=== PATIENT | female | born 1940 | race Caucasian/White ===

== ENCOUNTER 2023-02-18 10:57 | Outpatient (AMB) | payer MEDICARE, OTHER, SELFPAY ==
[2023-02-18 11:13] VITALS: BP 138/80; PULSE 97; BMI 33.6
--- NOTE | 2023-02-18 11:13 | HO.NEPHOV ---
HPI HPI Comments History of Present Illness Details Argenis is a 82-year-old female whom I had the privilege of seeing in follow-up. She had acute kidney injury from multiple myeloma and had been on dialysis. Her GFR had improved with good urine output and subsequently her dialysis was discontinued. She gets chemotherapy once a week from Dr. Jackson. Her anemia is managed by her rubber insulator . she does not have any new bone pain, back pain, high serum calcium. Her GFR has had been stable. She denies any chest pain, shortness of breath, nausea vomiting, diarrhea, orthostatic symptoms or pedal edema. Her appetite is good and her energy levels are acceptable. She had no new antibiotic intake, hospitalizations or any infections recently. She does not have any dysuria, hematuria, flank pain. She feels well otherwise. She was accompanied by her at the time of this visit. [facility] Medical History (Updated 02/18/23 @ 11:44 by John Diaz MD) H/O malignant neoplasm of breast Multiple myeloma History of hemodialysis Anemia of chronic disease Metabolic acidosis Acute kidney injury Chronic kidney disease, stage 4 (severe) Social History Alcohol intake: never Patient Tobacco Use Status: Never used Tobacco Vital Signs 02/18/23 11:13 Height 5 ft 5 in Weight 202 lb 2 oz BMI 33.6 BP 138/80 Blood Pressure Location Lt brachial Position Sitting Pulse 97 Pulse Source Pulse Oximeter Physical Exam Vital Signs: Last Vital Signs Pulse 97 02/18/23 11:13 BP 138/80 02/18/23 11:13 BMI result Body Mass Index 33.6 Const General: comfortable and no acute distress Orientation/consciousness: patient oriented x3 HEENT Head: Yes normocephalic Mouth: Normal oral and palatal mucosa present Eyes EOM: EOMs intact bilaterally Neck Neck: Yes supple Resp Auscultation: clear to auscultation bilaterally Cardio Jugular venous distension: no JVD Rate: regular rate Heart sounds: Murmur heart sound present GI Palpation (GI): Soft to palpation Auscultation: normal bowel sounds General: Yes no CVA tenderness Back/Spine/Pelvis Back: no CVA tenderness Skin General skin exam: no rashes or lesions noted Neuro General: patient oriented x3 and moves all extremities Extrem General: Yes no pedal edema Assessment & Plan Assessment & Plan (1) Anemia of chronic disease: Code(s): D63.8 - Anemia in other chronic diseases classified elsewhere (2) Metabolic acidosis: Code(s): E87.20 - Acidosis, unspecified (3) Chronic kidney disease, stage 4 (severe): Code(s): N18.4 - Chronic kidney disease, stage 4 (severe) Plan Argenis has chronic kidney disease stage 4. She has multiple myeloma and had been getting chemotherapy. She is closely followed by her oncologist. Her GFR has been stable ever since she had come off hemodialysis. Her urine output is good. Her volume status is acceptable. Her serum potassium is normal and her acidosis is better. She has anemia chronic disease and is managed by her oncologist. I have ordered follow-up blood work. She should maintain good hydration. She should avoid nonsteroidal inflammatory medications as well as Bactrim if possible. I did not make any medication changes at this office visit. All her questions were answered. Time spent documentation, retrieving data and patient encounter 39 minutes. Orders: Orders Electrolytes 02/18/23 D63.8 - Anemia in other chronic diseases classified elsewhere, E87.20 - Acidosis, unspecified, N18.4 - Chronic kidney disease, stage 4 (severe) Blood Urea Nitrogen 02/18/23 D63.8 - Anemia in other chronic diseases classified elsewhere, E87.20 - Acidosis, unspecified, N18.4 - Chronic kidney disease, stage 4 (severe) Calcium 02/18/23 D63.8 - Anemia in other chronic diseases classified elsewhere, E87.20 - Acidosis, unspecified, N18.4 - Chronic kidney disease, stage 4 (severe) Creatinine 02/18/23 D63.8 - Anemia in other chronic diseases classified elsewhere, E87.20 - Acidosis, unspecified, N18.4 - Chronic kidney disease, stage 4 (severe) Coding Level of Care Code Est Pt Level 4 (24815) Diagnoses Anemia of chronic disease D63.8 Metabolic acidosis E87.20 Chronic kidney disease, stage 4 (severe) N18.4
== END 2023-02-18 11:55 | disposition home or self-care (01) ==
PROVIDERS: Visit Provider Internal Medicine Nephrology
DX: N18.4 Chronic kidney disease, stage 4 (severe) (principal); C90.00 Multiple myeloma not having achieved remission; D63.1 Anemia in chronic kidney disease; E87.22 Chronic metabolic acidosis
CPT/HCPCS: 99214

== ENCOUNTER → 2023-02-18 10:57 | Outpatient (BNVA) | payer MEDICARE, OTHER, SELFPAY | PROVIDERS: Visit Provider Internal Medicine Nephrology | DX: N18.4 Chronic kidney disease, stage 4 (severe) (principal); D63.8 Anemia in other chronic diseases classified elsewhere; E87.20 Acidosis, unspecified; C90.00 Multiple myeloma not having achieved remission | CPT/HCPCS: 99212 ==

== ENCOUNTER 2023-04-25 15:56 | Outpatient (AMB) | payer MEDICARE, OTHER, SELFPAY ==
--- NOTE | 2023-04-25 16:14 | HO.NEPHOV_ITS ---
HPI HPI Comments History of Present Illness Details Argenis is a 82-year-old female whom I had the privilege of seeing in follow-up. She had acute kidney injury from multiple myeloma and had been on dialysis. Her GFR had improved with good urine output and subsequently her dialysis was discontinued. She gets chemotherapy once a week from Dr. Jackson. Her anemia is managed by her manager trade marketing . She does not have any new bone pain, back pain, high serum calcium. Her GFR has had been stable. She denies any chest pain, shortness of breath, nausea vomiting, diarrhea, orthostatic symptoms or pedal edema. Her appetite is good and her energy levels are acceptable. She had no new antibiotic intake, hospitalizations or any infections recently. She does not have any dysuria, hematuria, flank pain. She feels well otherwise. She was accompanied by her at the time of this visit [facility] Medical History (Updated 02/18/23 @ 11:44 by John Diaz MD) H/O malignant neoplasm of breast Multiple myeloma History of hemodialysis Anemia of chronic disease Metabolic acidosis Acute kidney injury Chronic kidney disease, stage 4 (severe) Social History Alcohol intake: never Patient Tobacco Use Status: Never used Tobacco Vital Signs 04/25/23 16:22 Height 5 ft 5 in Weight 199 lb 8 oz BMI 33.2 BP 120/78 Blood Pressure Location Lt brachial Position Sitting Pulse 100 Pulse Source Pulse Oximeter Pulse Oximetry (%) 96 Oxygen Delivery Method Room Air Physical Exam Vital Signs: Last Vital Signs Pulse 100 04/25/23 16:22 BP 120/78 04/25/23 16:22 Pulse Ox 96 04/25/23 16:22 Oxygen Delivery Method Room Air 04/25/23 16:22 BMI result Body Mass Index 33.2 Const General: comfortable and no acute distress Orientation/consciousness: patient oriented x3 HEENT Head: Yes normocephalic Mouth: Normal oral and palatal mucosa present Eyes EOM: EOMs intact bilaterally Neck Neck: Yes supple Resp Auscultation: clear to auscultation bilaterally Cardio Jugular venous distension: no JVD Rate: regular rate GI Palpation (GI): Soft to palpation Auscultation: normal bowel sounds General: Yes no CVA tenderness Back/Spine/Pelvis Back: no CVA tenderness Skin General skin exam: no rashes or lesions noted Neuro General: patient oriented x3 and moves all extremities Extrem General: Yes no pedal edema Assessment & Plan Assessment & Plan (1) Chronic kidney disease, stage 4 (severe): Code(s): N18.4 - Chronic kidney disease, stage 4 (severe) (2) Metabolic acidosis: Code(s): E87.20 - Acidosis, unspecified (3) Anemia of chronic disease: Code(s): D63.8 - Anemia in other chronic diseases classified elsewhere Plan Argenis has chronic kidney disease stage 4. She has multiple myeloma and had been getting chemotherapy. She is closely followed by her oncologist. Her GFR has been stable ever since she had come off hemodialysis. Her urine output is good. Her volume status is acceptable. Her serum potassium is normal and her acidosis is better/stable. She is on oral sodium bicarbonate. She has anemia chronic disease and is managed by her oncologist. I have ordered follow-up blood work. She should maintain good hydration. She should avoid nonsteroidal inflammatory medications as well as Bactrim if possible. I did not make any medication changes at this office visit. All her questions were answered. Follow-up given Orders: Orders Electrolytes 04/25/23 D63.8 - Anemia in other chronic diseases classified elsewhere, E87.20 - Acidosis, unspecified, N18.4 - Chronic kidney disease, stage 4 (severe) Blood Urea Nitrogen 04/25/23 D63.8 - Anemia in other chronic diseases classified elsewhere, E87.20 - Acidosis, unspecified, N18.4 - Chronic kidney disease, stage 4 (severe) Calcium 04/25/23 D63.8 - Anemia in other chronic diseases classified elsewhere, E87.20 - Acidosis, unspecified, N18.4 - Chronic kidney disease, stage 4 (severe) Creatinine 04/25/23 D63.8 - Anemia in other chronic diseases classified elsewhere, E87.20 - Acidosis, unspecified, N18.4 - Chronic kidney disease, stage 4 (severe) Parathyroid Hormone Intact 04/25/23 D63.8 - Anemia in other chronic diseases classified elsewhere, E87.20 - Acidosis, unspecified, N18.4 - Chronic kidney disease, stage 4 (severe) Phosphorus 04/25/23 D63.8 - Anemia in other chronic diseases classified elsewhere, E87.20 - Acidosis, unspecified, N18.4 - Chronic kidney disease, stage 4 (severe) Coding Level of Care Code Est Pt Level 4 (51108) Diagnoses Chronic kidney disease, stage 4 (severe) N18.4 Metabolic acidosis E87.20 Anemia of chronic disease D63.8 Results Reviewed Nephrology Results: No Data to Display
[2023-04-25 16:22] VITALS: BP 120/78; PULSE 100; O2SAT 96; BMI 33.2
== END 2023-04-25 16:44 | disposition home or self-care (01) ==
PROVIDERS: Visit Provider Internal Medicine Nephrology
DX: N18.4 Chronic kidney disease, stage 4 (severe) (principal); E87.20 Acidosis, unspecified; D63.8 Anemia in other chronic diseases classified elsewhere
CPT/HCPCS: 99214

== ENCOUNTER → 2023-04-25 15:56 | Outpatient (BNVA) | payer MEDICARE, OTHER, SELFPAY | PROVIDERS: Visit Provider Internal Medicine Nephrology | DX: N18.4 Chronic kidney disease, stage 4 (severe) (principal); E87.20 Acidosis, unspecified; D63.8 Anemia in other chronic diseases classified elsewhere | CPT/HCPCS: 99212 ==

== ENCOUNTER 2023-07-11 13:26 | Outpatient (AMB) | payer MEDICARE, OTHER, SELFPAY ==
[2023-07-11 13:57] VITALS: BP 140/90; PULSE 103; O2SAT 98; BMI 32.9
--- NOTE | 2023-07-11 13:57 | HO.NEPHOV ---
HPI HPI Comments History of Present Illness Details Argenis is a 82-year-old female whom I had the privilege of seeing in follow-up. She had acute kidney injury from multiple myeloma and had been on dialysis. Her GFR had improved with good urine output and subsequently her dialysis was discontinued. She gets chemotherapy once a week from Dr. Jackson. Her anemia is managed by her director of logistics . She does not have any new bone pain, back pain, high serum calcium. Her GFR has improved to 18 mls/mt. She denies any chest pain, shortness of breath, nausea vomiting, diarrhea, orthostatic symptoms or pedal edema. Her appetite is good and her energy levels are acceptable. She had no new antibiotic intake, hospitalizations or any infections recently. She does not have any dysuria, hematuria, flank pain. She feels well otherwise. [facility] Medical History (Updated 02/18/23 @ 11:44 by John Diaz MD) H/O malignant neoplasm of breast Multiple myeloma History of hemodialysis Anemia of chronic disease Metabolic acidosis Acute kidney injury Chronic kidney disease, stage 4 (severe) Social History Alcohol intake: never Patient Tobacco Use Status: Never used Tobacco Vital Signs 07/11/23 13:57 Height 5 ft 5 in Weight 198 lb BMI 32.9 BP 140/90 H Blood Pressure Location Lt brachial Position Sitting Pulse 103 H Pulse Source Pulse Oximeter Pulse Oximetry (%) 98 Oxygen Delivery Method Room Air Physical Exam Vital Signs: Last Vital Signs Pulse 103 H 07/11/23 13:57 BP 140/90 H 07/11/23 13:57 Pulse Ox 98 07/11/23 13:57 Oxygen Delivery Method Room Air 07/11/23 13:57 BMI result Body Mass Index 32.9 Const General: comfortable and no acute distress Orientation/consciousness: patient oriented x3 HEENT Head: Yes normocephalic Mouth: Normal oral and palatal mucosa present Eyes EOM: EOMs intact bilaterally Neck Neck: Yes supple Resp Auscultation: clear to auscultation bilaterally Cardio Jugular venous distension: no JVD Rate: regular rate GI Palpation (GI): Soft to palpation Auscultation: normal bowel sounds General: Yes no CVA tenderness Back/Spine/Pelvis Back: no CVA tenderness Skin General skin exam: no rashes or lesions noted Neuro General: patient oriented x3 and moves all extremities Extrem General: Yes no pedal edema Assessment & Plan Assessment & Plan (1) Chronic kidney disease, stage 4 (severe): Code(s): N18.4 - Chronic kidney disease, stage 4 (severe) (2) Metabolic acidosis: Code(s): E87.20 - Acidosis, unspecified (3) Anemia of chronic disease: Code(s): D63.8 - Anemia in other chronic diseases classified elsewhere Plan Argenis has chronic kidney disease stage 4. She has multiple myeloma and had been getting chemotherapy. She is closely followed by her oncologist. Her GFR has improved ever since she had come off hemodialysis. Her urine output is good. Her volume status is acceptable. Her serum potassium is normal . I increased her NaHCO3 2 tablets AM and 1 tablet PM. She has anemia chronic disease and is managed by her oncologist. I have ordered follow-up blood work. She should maintain good hydration. She should avoid nonsteroidal inflammatory medications as well as Bactrim if possible. I did not make any medication changes at this office visit. All her questions were answered. Follow-up given Orders: Orders Creatinine Today D63.8 - Anemia in other chronic diseases classified elsewhere, E87.20 - Acidosis, unspecified, N18.4 - Chronic kidney disease, stage 4 (severe) Electrolytes Today D63.8 - Anemia in other chronic diseases classified elsewhere, E87.20 - Acidosis, unspecified, N18.4 - Chronic kidney disease, stage 4 (severe) Blood Urea Nitrogen Today D63.8 - Anemia in other chronic diseases classified elsewhere, E87.20 - Acidosis, unspecified, N18.4 - Chronic kidney disease, stage 4 (severe) Coding Level of Care Code Est Pt Level 4 (93781) Diagnoses Chronic kidney disease, stage 4 (severe) N18.4 Metabolic acidosis E87.20 Anemia of chronic disease D63.8 Results Reviewed Nephrology Results: No Data to Display
== END 2023-07-11 14:36 | disposition home or self-care (01) ==
LOC: HO.HKAS 13:26
PROVIDERS: Visit Provider Internal Medicine Nephrology
DX: N18.4 Chronic kidney disease, stage 4 (severe) (principal); E87.20 Acidosis, unspecified; D63.8 Anemia in other chronic diseases classified elsewhere
CPT/HCPCS: 99214

== ENCOUNTER → 2023-07-11 13:26 | Outpatient (BNVA) | payer MEDICARE, OTHER, SELFPAY | PROVIDERS: Visit Provider Internal Medicine Nephrology | DX: N18.4 Chronic kidney disease, stage 4 (severe) (principal) | CPT/HCPCS: 99212 ==

== ENCOUNTER 2023-10-10 11:02 | Outpatient (AMB) | payer MEDICARE, OTHER, SELFPAY ==
--- NOTE | 2023-10-10 11:22 | HO.NEPHOV ---
Vital Signs 10/10/23 11:24 Height 5 ft 5 in Weight 196 lb 8 oz BMI 32.7 BP 130/78 Blood Pressure Location Lt brachial Position Sitting Pulse 97 Pulse Source Pulse Oximeter Pulse Oximetry (%) 96 Oxygen Delivery Method Room Air Intake Visit Reasons: Office visit/ Conf Industrial Painter Required: No Accompanied by: Self / Same As Patient Allergies Penicillins Allergy (Verified 10/10/23 11:27) Unknown HPI Comments Details: Argenis is a 82-year-old female whom I had the privilege of seeing in follow-up. She had acute kidney injury from multiple myeloma and had been on dialysis. Her GFR had improved with good urine output and subsequently her dialysis was discontinued. She gets chemotherapy once a week from Dr. Jackson. Her anemia is managed by her tire trimmer hand . She does not have any new bone pain, back pain, high serum calcium. Her GFR has improved to 18 mls/mt. She denies any chest pain, shortness of breath, nausea vomiting, diarrhea, orthostatic symptoms or pedal edema. Her appetite is good and her energy levels are acceptable. She had no new antibiotic intake, hospitalizations or any infections recently. She does not have any dysuria, hematuria, flank pain. She feels well otherwise. [facility]AC[facility] BY [facility] Medical History (Updated 02/18/23 @ 11:44 by John Diaz MD) H/O malignant neoplasm of breast Multiple myeloma History of hemodialysis Anemia of chronic disease Metabolic acidosis Acute kidney injury Chronic kidney disease, stage 4 (severe) Social History Alcohol intake: never Patient Tobacco Use Status: Never used Tobacco Physical Exam Vital Signs: Last Vital Signs Pulse 97 10/10/23 11:24 BP 130/78 10/10/23 11:24 Pulse Ox 96 10/10/23 11:24 Oxygen Delivery Method Room Air 10/10/23 11:24 BMI result Body Mass Index 32.7 Const General: comfortable and no acute distress Orientation/consciousness: patient oriented x3 HEENT Head: Yes normocephalic Mouth: Normal oral and palatal mucosa present Eyes EOM: EOMs intact bilaterally Neck Neck: Yes supple Resp Auscultation: clear to auscultation bilaterally Cardio Jugular venous distension: no JVD Rate: regular rate GI Palpation (GI): Soft to palpation Auscultation: normal bowel sounds General: Yes no CVA tenderness Back/Spine/Pelvis Back: no CVA tenderness Skin General skin exam: no rashes or lesions noted Neuro General: patient oriented x3 and moves all extremities Extrem General: Yes no pedal edema Results Reviewed Nephrology Results: No Data to Display Assessment & Plan Assessment & Plan (1) Chronic kidney disease, stage 4 (severe): Code(s): N18.4 - Chronic kidney disease, stage 4 (severe) Category: Medical (2) Anemia of chronic disease: Code(s): D63.8 - Anemia in other chronic diseases classified elsewhere Category: Medical (3) Metabolic acidosis: Code(s): E87.20 - Acidosis, unspecified Category: Medical Plan Argenis has chronic kidney disease stage 4. She has multiple myeloma and had been getting chemotherapy. She is closely followed by her oncologist. Her GFR has improved ever since she had come off hemodialysis. Her urine output is good. Her volume status is acceptable. Her serum potassium is normal . I increased her NaHCO3 2 tablets AM and 2 tablet PM. She has anemia chronic disease and is managed by her oncologist. I have ordered follow-up blood work. She should maintain good hydration. She should avoid nonsteroidal inflammatory medications as well as Bactrim if possible. I did not make any medication changes at this office visit. All her questions were answered. Follow-up given Coding Level of Care Code Est Pt Level 4 (12628) Diagnoses Chronic kidney disease, stage 4 (severe) N18.4 Anemia of chronic disease D63.8 Metabolic acidosis E87.20
[2023-10-10 11:24] VITALS: BP 130/78; PULSE 97; O2SAT 96; BMI 32.7
== END 2023-10-10 11:46 | disposition home or self-care (01) ==
PROVIDERS: Visit Provider Internal Medicine Nephrology
DX: N18.4 Chronic kidney disease, stage 4 (severe) (principal); D63.8 Anemia in other chronic diseases classified elsewhere; E87.20 Acidosis, unspecified
CPT/HCPCS: 99214

== ENCOUNTER → 2023-10-10 11:02 | Outpatient (BNVA) | payer MEDICARE, OTHER, SELFPAY | PROVIDERS: Visit Provider Internal Medicine Nephrology | DX: N18.4 Chronic kidney disease, stage 4 (severe) (principal); D63.8 Anemia in other chronic diseases classified elsewhere; E87.20 Acidosis, unspecified | CPT/HCPCS: 99212 ==

== ENCOUNTER 2024-01-14 13:35 | Outpatient (AMB) | payer MEDICARE, OTHER, SELFPAY ==
--- NOTE | 2024-01-14 13:37 | HO.NEPHOV ---
Vital Signs 01/14/24 13:42 Height 5 ft 5 in Weight 191 lb 4 oz BMI 31.8 BP 126/82 Blood Pressure Location Lt brachial Position Sitting Pulse 95 Pulse Source Pulse Oximeter Pulse Oximetry (%) 98 Oxygen Delivery Method Room Air Intake Visit Reasons: 3 mon follow up- Conf Precision Lens Grinder Required: No Accompanied by: Self / Same As Patient Allergies Penicillins Allergy (Verified 01/14/24 13:45) Unknown HPI Comments Details: Argenis is a 82-year-old female whom I had the privilege of seeing in follow-up. She had acute kidney injury from multiple myeloma and had been on dialysis. Her GFR had improved with good urine output and subsequently her dialysis was discontinued. She gets chemotherapy once a week from Dr. Jackson. Her anemia is managed by her gear inspector . She does not have any new bone pain, back pain, high serum calcium. Her GFR has improved to 18 mls/mt. She denies any chest pain, shortness of breath, nausea vomiting, diarrhea, orthostatic symptoms or pedal edema. Her appetite is good and her energy levels are acceptable. She had no new antibiotic intake, hospitalizations or any infections recently. She does not have any dysuria, hematuria, flank pain. She recently had pneumonia and had been on antibiotics. She feels improved otherwise. [facility] Medical History (Updated 02/18/23 @ 11:44 by John Diaz MD) H/O malignant neoplasm of breast Multiple myeloma History of hemodialysis Anemia of chronic disease Metabolic acidosis Acute kidney injury Chronic kidney disease, stage 4 (severe) Social History Alcohol intake: never Patient Tobacco Use Status: Never used Tobacco Review of Systems Const All systems reviewed & are unremarkable except as noted in HPI and below Physical Exam Vital Signs: Last Vital Signs Pulse 95 01/14/24 13:42 BP 126/82 01/14/24 13:42 Pulse Ox 98 01/14/24 13:42 Oxygen Delivery Method Room Air 01/14/24 13:42 BMI result Body Mass Index 31.8 Const General: comfortable and no acute distress Orientation/consciousness: patient oriented x3 HEENT Head: Yes normocephalic Mouth: Normal oral and palatal mucosa present Eyes EOM: EOMs intact bilaterally Neck Neck: Yes supple Resp Auscultation: clear to auscultation bilaterally Cardio Jugular venous distension: no JVD Rate: regular rate GI Palpation (GI): Soft to palpation Auscultation: normal bowel sounds General: Yes no CVA tenderness Back/Spine/Pelvis Back: no CVA tenderness Skin General skin exam: no rashes or lesions noted Neuro General: patient oriented x3 and moves all extremities Extrem General: Yes no pedal edema Results Reviewed Nephrology Results: No Data to Display Assessment & Plan Assessment & Plan (1) Chronic kidney disease, stage 4 (severe): Code(s): N18.4 - Chronic kidney disease, stage 4 (severe) Category: Medical (2) Metabolic acidosis: Code(s): E87.20 - Acidosis, unspecified Category: Medical Plan Argenis has chronic kidney disease stage 4. She has multiple myeloma and had been getting chemotherapy. She is closely followed by her oncologist. Her GFR has improved ever since she had come off hemodialysis. Her urine output is good. Her volume status is acceptable. Her serum potassium is normal . She should continue NaHCO3 650 mg 2 tablets AM and 2 tablet PM. She has anemia chronic disease and is managed by her oncologist. I have ordered follow-up blood work. She should maintain good hydration. She should avoid nonsteroidal inflammatory medications as well as Bactrim if possible. I did not make any medication changes at this office visit. All her questions were answered. Follow-up given Orders: Orders Parathyroid Hormone Intact 3 Months E87.20 - Acidosis, unspecified, N18.4 - Chronic kidney disease, stage 4 (severe) Creatinine 3 Months E87.20 - Acidosis, unspecified, N18.4 - Chronic kidney disease, stage 4 (severe) Blood Urea Nitrogen 3 Months E87.20 - Acidosis, unspecified, N18.4 - Chronic kidney disease, stage 4 (severe) Electrolytes 3 Months E87.20 - Acidosis, unspecified, N18.4 - Chronic kidney disease, stage 4 (severe) Vitamin D 25-OH Total 3 Months E87.20 - Acidosis, unspecified, N18.4 - Chronic kidney disease, stage 4 (severe) Medications: Changed From sodium bicarbonate 1,300 mg PO BID To sodium bicarbonate 1,300 mg (2 x 650 mg) PO BID 90 days 360 tabs 3RF Coding Level of Care Code Est Pt Level 4 (84555) Diagnoses Chronic kidney disease, stage 4 (severe) N18.4 Metabolic acidosis E87.20
[2024-01-14 13:42] VITALS: BP 126/82; PULSE 95; O2SAT 98; BMI 31.8
== END 2024-01-14 14:23 | disposition home or self-care (01) ==
PROVIDERS: Visit Provider Internal Medicine Nephrology
DX: N18.4 Chronic kidney disease, stage 4 (severe) (principal); E87.20 Acidosis, unspecified
CPT/HCPCS: 99214

== ENCOUNTER → 2024-01-14 13:35 | Outpatient (BNVA) | payer MEDICARE, OTHER, SELFPAY | PROVIDERS: Visit Provider Internal Medicine Nephrology | DX: N18.4 Chronic kidney disease, stage 4 (severe) (principal); E87.20 Acidosis, unspecified | CPT/HCPCS: 99212 ==

== ENCOUNTER 2024-04-21 13:17 | Outpatient (AMB) | payer MEDICARE, OTHER, SELFPAY ==
--- NOTE | 2024-04-21 13:31 | HO.NEPHOV ---
Vital Signs 04/21/24 13:34 Height 5 ft 5 in Weight 191 lb 2 oz BMI 31.8 BP 140/80 H Blood Pressure Location Lt brachial Position Sitting Pulse 83 Pulse Source Pulse Oximeter Pulse Oximetry (%) 98 Oxygen Delivery Method Room Air Intake Visit Reasons: 3 mon follow up Senior Mobile Application Developer Required: No Accompanied by: Self / Same As Patient Allergies Penicillins Allergy (Verified 04/21/24 13:34) Unknown HPI Comments Details: Argenis is a 82-year-old female whom I had the privilege of seeing in follow-up. She had acute kidney injury from multiple myeloma and had been on dialysis. Her GFR had improved with good urine output and subsequently her dialysis was discontinued. She gets chemotherapy once a week from Dr. Jackson. 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 She does not have any new bone pain, back pain, high serum calcium. Her GFR has improved to 18 mls/mt. She denies any chest pain, shortness of breath, nausea vomiting, diarrhea, orthostatic symptoms or pedal edema. Her appetite is good and her energy levels are acceptable. She had no new antibiotic intake, hospitalizations or any infections recently. She does not have any dysuria, hematuria, flank pain. She recently had pneumonia and had been on antibiotics. She feels improved otherwise. [facility] Medical History (Updated 02/18/23 @ 11:44 by John Diaz MD) H/O malignant neoplasm of breast Multiple myeloma History of hemodialysis Anemia of chronic disease Metabolic acidosis Acute kidney injury Chronic kidney disease, stage 4 (severe) Social History Alcohol intake: never Patient Tobacco Use Status: Never used Tobacco Review of Systems Const All systems reviewed & are unremarkable except as noted in HPI and below Physical Exam Vital Signs: Last Vital Signs Pulse 83 04/21/24 13:34 BP 140/80 H 04/21/24 13:34 Pulse Ox 98 04/21/24 13:34 Oxygen Delivery Method Room Air 04/21/24 13:34 BMI result Body Mass Index 31.8 Const General: comfortable and no acute distress Orientation/consciousness: patient oriented x3 HEENT Head: Yes normocephalic Mouth: Normal oral and palatal mucosa present Eyes EOM: EOMs intact bilaterally Neck Neck: Yes supple Resp Auscultation: clear to auscultation bilaterally Cardio Jugular venous distension: no JVD Rate: regular rate GI Palpation (GI): Soft to palpation Auscultation: normal bowel sounds General: Yes no CVA tenderness Back/Spine/Pelvis Back: no CVA tenderness Skin General skin exam: no rashes or lesions noted Neuro General: patient oriented x3 and moves all extremities Extrem General: Yes no pedal edema Results Reviewed Nephrology Results: No Data to Display Assessment & Plan Assessment & Plan (1) Chronic kidney disease, stage 4 (severe): Code(s): N18.4 - Chronic kidney disease, stage 4 (severe) Category: Medical (2) Metabolic acidosis: Code(s): E87.20 - Acidosis, unspecified Category: Medical (3) Anemia of chronic disease: Code(s): D63.8 - Anemia in other chronic diseases classified elsewhere Category: Medical Plan Argenis has chronic kidney disease stage 4. She has multiple myeloma and had been getting chemotherapy. She is closely followed by her oncologist. Her GFR has improved ever since she had come off hemodialysis. Her urine output is good. Her volume status is acceptable. Her serum potassium is normal . She should continue NaHCO3 650 mg 2 tablets AM and 2 tablet PM. She has anemia chronic disease and is managed by her oncologist. I have ordered follow-up blood work. She should maintain good hydration. She should avoid nonsteroidal inflammatory medications as well as Bactrim if possible. I did not make any medication changes at this office visit. All her questions were answered. Follow-up given Orders: Orders Blood Urea Nitrogen 3 Months D63.8 - Anemia in other chronic diseases classified elsewhere, E87.20 - Acidosis, unspecified, N18.4 - Chronic kidney disease, stage 4 (severe) Electrolytes 3 Months D63.8 - Anemia in other chronic diseases classified elsewhere, E87.20 - Acidosis, unspecified, N18.4 - Chronic kidney disease, stage 4 (severe) Creatinine 3 Months D63.8 - Anemia in other chronic diseases classified elsewhere, E87.20 - Acidosis, unspecified, N18.4 - Chronic kidney disease, stage 4 (severe) Coding Level of Care Code Est Pt Level 4 (02996) Diagnoses Chronic kidney disease, stage 4 (severe) N18.4 Metabolic acidosis E87.20 Anemia of chronic disease D63.8
[2024-04-21 13:34] VITALS: BP 140/80; PULSE 83; O2SAT 98; BMI 31.8
--- OUTSIDE RECORDS SUMMARY | 2024-04-21 15:44 | XMS_ITS ---
Author Organization [facility] [address] Address [address] [place] [address] Care Team Providers Care Hop Sorter Name Role Phone Shilpa THOMAS, Vikash Primary Care Provider Unavail able Renaldo Bello Unavailable [phone] Allergies Allergen (clinical drug ingredient) Drug/Non Drug Allergy documented on EMR Reaction Allergy Type Onset Date Status Penicillin Unknown Drug Allergy Active REASON FOR VISIT Painful nail(s) aggrevated by shoes causing difficulty standing/walking, Dry skin Medications Medication SIG (Take, Route, Frequency, Duration) Notes Start Date End Date Status Aspirin 81 mg Not-Ta darlene Sodium Bicarbonate A ctive valACYclovir HCl 500 MG 1 tablet Orally Once a day Active Warfarin Sodium 6 MG 1 tablet Orally Active Simvastatin Active Calcium + D 600 mg N ot-Taking Glucosamine Chondr Complex 500 mg Not-Taking amLODIPine Besy-Benazepril HCl 2.5-10 MG as directed Orally Active Centrum Silver Activ e Levothyroxine Sodium 50 MCG 1 tablet on an empty stomach in the morning Orally Once a day Active Famotidine 20 MG 1 tablet at bedtime as needed Orally Once a day for 30 day(s) Active Social History Tobacco Use: Social History Observation Description Date Details (start date - stop date) Never Smoker NA - NA Tobacco Use/Smoking Question Answer Notes Are you a: nonsmoker Alcohol Screen Question Answer Notes Did you have a drink containing alcohol in the p ast year? No Points 0 Interpretation Negative Problems Problem Type SNOMED Code ICD Code Onset Dates Problem Status W/U Status Risk Notes Problem 172494677 Porokeratosis (Q82.8) Active confirmed Vital Signs Height 5 ft 6 in in 01/16/2024 Weight 191 lbs 01/16/2024 BMI 30.82 kg/m2 01/16/2024 Procedures Procedure Date Ordered Date Performed Result Body Sit e 67150-ZRXROKF NAIL, 6 OR MORE 01/16/2024 N/A Encounters Encounter Location Date Provider Diagnosis [facility] [address] 01/16/2024 Renaldo Bello Tinea unguium B35.1 ; Pain in right toe(s) M79.674 ; Pain in left toe(s) M79.675 and Xerosis cutis L85.3 Assessments Encounter Date Diagnosis (ICD Code) Assessment Notes Treatment Notes Treatment Clinical Notes Section Notes 01/16/2024 Tinea unguium (ICD-10 - B35.1) 01/16/2024 Pain in right toe(s) (ICD-10 - M79.674) 01/16/2024 Pain in left toe(s) (ICD-10 - M79.675) 01/16/2024 Xerosis cutis (ICD-10 - L85.3) Application of [place]Soothe skin care lotion to the feet Plan Of Treatment Treatment Notes Assessment Notes Xerosis cutis Application of [place]Soothe skin care lotion to the feet Pending Test Test Name Order Date [id number] NAIL, 6 OR MORE 01/16/2024 Next Appt Details Follow Up: 2 Months, Reason: Provider Name:Renaldo Bello, 06/16/2024 02:30:00 PM, [address] [place] [address], [place], [address], Procedure Notes * Category Sub-Category Detail Notes Debride Nail 6-10 Nail debridement Performance o f this nail treatment by a nonprofessional would put this patients foot and overall health at risk. Therefore, nail debridement was performed extensively to reduce/remove overall nail length, girth, thickness, subungual debris, and necrotic tissue, by manual and/or electrical means through the use of a nail nipper and/or dremel-type salvage grinder, to a more viable healthy nail plate or bed tissue 6-10. Silver nitrate used for any petechial bleeding as necessary. Definitive antifungal treatment options have been reviewed and discussed with the patient. The patient chooses, no pharmaceutical tx - 46564 Keratoma Treatment Parring or Cutting o f Benign Hyperkeratotic Lesion(s) The Benign hyperkeratotic lesion, as described above was pared, and/or cut utilizing a sterile 15 blade, tissue nippers, and/or dremel sub 4th metatarsal head on the right foot Progress Notes * Argenis DOWNS MDOB: [birth year] (83 yo F)Acc No.[id number]:01/16/2024 Progress Note Patient:?Roberta Downsne Carla Provider:?Renaldo Bello D.P.M. :1940???Age:83 Y???Sex:Female D ate:01/16/2024 Address:[address] [place], [place] [id number] Pcp:Vikash Massey MD Subjective: * Chief Complaints: * ???Painful nail(s) aggrevate d by shoes causing difficulty standing/walkingDry skin * HPI: ???Painful Nails:?Pt States Last PCP Visit:?Date:?09/19/2023 ?Nature:?aching , dull.?Location:?1-5 digits B/L.?Duration:?many years.?Aggravated by:?shoegear causing difficulty standing/walking , walking.?Treatments:?Debridement.?Severity/Quality:?Moderate.?Skin problems:?Nature:?itching , dryness , scaling B/L.?Location:?Top , Forefoot , Heel/Rearfoot , B/L.?Duration:?several months.?Onset/Cause:?gradual.?Course:?recurrent.?Aggravated by:?no aggrevating factors.?Treatments:?none.?Severity/Quality:?moderate.? * ROS:?General/Constitutional:?Nausea?denies?.?Vomiting?denies?.?Hunger Thirst?denies?.?Loss appetite?denies?.?Chills?denies.?Fatigue?denies.?Fever?denies.?Night Sweats?denies.?Unexplained weight loss?denies?.?Unexplained weight gain?denies?.?HEENTM:?Dentures?denies, denies.?Dizziness?denies.?Glasses/contacts?denies.?Retinopathy?denies.?Blurred/d ouble vision?denies?.?TMJ?denies?.?Discharge/drainage?denies.?Implants?denies .?S ore throat?denies.?Dental implants?denies.?Hard of hearing ?denies?.?Difficulty chewing/swallowing/speaking?denies.?Nose bleeds?denies?.?Sore mouth?denies?.?Respiratory:?On Oxygen?denies.?Pneumonia/pleurisy?denies?.?Bronchitis?denies.?Emphysema?denies?. ?Coughing?denies.?Cough blood?denies?.?Shortness of breath?denies?.?Wheezing?denies?.?Cardiovascular:?Pacemaker?denies.?MVP?denies?.?WPW?denies.?CHF?denies?.?Heart attack?denies?.?Septal defect?denies?.?Rapid beat?denies.?Chest pain ?denies.?Atrial Fib.?denies.?Murmur/Palpitations?denies.?Gastrointestinal:?Hemorrhoids?denies?.?Stomach/Abdominal pain?denies.?Dark blood stool?denies?.?Irritable bowel ?denies?.?Constipation?denies?.?Diarrhea?denies.?Hematology:?Swelling?denies.?Clots?denies?.?Varicose Veins?denies?.?Bruising?denies.?Bleeding problem?denies?.?Genitourinary:?Blood urine?denies.?Frequent/Painfu/urination/bladder control?denies?.?Kidney stones?denies?.?Infection (UTI)?denies?.?Nephropathy?denies.?sex trans dis (STD)?denies?.?Prostate?denies?.?Musculoskeletal:?Hammertoes?denies,.?Bunions?denies.?Back Pain?denies?.?Muscle Cramps/ Resting?denies.?Muscle cramps / walking?denies, denies.?Generalized aches and pains?denies, denies.?Weakness?denies, denies.?Integ.:?Mary?denies.?Scars?denies.?Corns/calluses?admits?.?Ingrown nails?admits?.?Painful nails?admits.?Open Sores?denies?.?Itching?admits.?Rashes?denies.?Scaly lesions of skin/scalp?admits.?Neurologic:?Difficulty sleeping?denies.?Brain disorder?denies?.?Numbness?denies?.?Balance trouble?denies?.?Confusion?denies?.?Fainting/blackouts?denies?.?Tingling?denies, denies.?Tremors?denies?.? * Medical History:? * Surgical History:?Bone Spurs 1983neck surgery - vertebrae fusion 1985breast surgery - cancer 2009 * Hospitalization/Major Diagno stic Procedure:?multiple myeloma chemotherapy * Family History:?Mother: dece ased, diagnosed with Other malignant neoplasm of unspecified site.?Father: , diagnosed with Family history of arthritis, Unspecified heart disease.?Siblings: cancer.?Spouse: alive.? * Social History:?Tobacco Use:?Tobacco Use/Smoking?Are you a:?nonsmoker ?Tobacco use other than smoking?Are you an other tobacco user? No.?Drugs/Alcohol:?Drugs?Have you used drugs other than those for medical reasons in the past 12 months??No ?Alcohol Screen?Did you have a drink containing alcohol in the past year??No ?Points?0 ?Interpretation?Negative ???Miscellaneous:?Caffeine: yes, 1-2 cups per day. ?no Children. ?Exercise: yes, walking. ?Marital status: . ?Occupation: retired teacher. * Medications:?TakingSodium Bi carbonate valACYclovir HCl 500 MG Tablet 1 tablet Orally Once a dayWarfarin Sodium 6 MG Tablet 1 tablet Orally Simvastatin Famotidine 20 MG Tablet 1 tablet at bedtime as needed Orally Once a dayamLODIPine Besy-Benazepril HCl 2.5-10 MG Capsule as directed Orally Centrum Silver Levothyroxine Sodium 50 MCG Tablet 1 tablet on an empty stomach in the morning Orally Once a dayTaking Sodium Bicarbonate Taking valACYclovir HCl 500 MG Tablet 1 tablet Orally Once a dayTaking Warfarin Sodium 6 MG Tablet 1 tablet Orally Taking Simvastatin Taking Famotidine 20 MG Tablet 1 tablet at bedtime as needed Orally Once a dayTaking amLODIPine Besy-Benazepril HCl 2.5-10 MG Capsule as directed Orally Taking Centrum Silver Taking Levothyroxine Sodium 50 MCG Tablet 1 tablet on an empty stomach in the morning Orally Once a dayNot-Taking/PRNCalcium + D 600 mg Glucosamine Chondr Complex 500 mg Aspirin 81 mg Medication List reviewed and reconciled with the patientNot-Taking/PRN Calcium + D 600 mg Not-Taking/PRN Glucosamine Chondr Complex 500 mg Not-Taking/PRN Aspirin 81 mg Medication List reviewed and reconciled with the patient * Allergies:?Penicillinyes[All ergies Verified] Objective: * Vitals:?Ht: 5 ft 6 in, Wt:19 1, BMI: 30.82, Shoe size:8m, Wt-k.64 kg. * Examination: ???Nails: ?NAILS are:?Elongated, overgrown, dystrophic, lytic, greater than 3mm thick, discolored and friable with crumbly malodorous subungual debris, with pain on palpation on the 1-5 digits B/L.?Dermatologic: ?SKIN FINDINGS:?Skin shows sign(s) of, dryness, scaling, in a stocking fashion, no fissure(s) present, B/L.?POROKERATOSIS:?painful , well encapsulated ,? sub 4th metatarsal?right foot. Painful to direct pressure.? Assessment: * Assessment: 1.?Tinea unguium - B35.1?2.? Pain in right toe(s) - M79.674?3.?Pain in left toe(s) - M79.675?4.?Xerosis cutis - L85.3, Acute problem, Uncomplicated (3)? Plan: * Treatment: 2.?Xerosis cutis? Notes: Application of [place]Soothe skin care lotion to the feet?? * Procedures:?Debride Nail 6-10:?Nail debridement?Performance of this nail treatment by a nonprofessional would put this patients foot and overall health at risk. Therefore, nail debridement was performed extensively to reduce/remove overall nail length, girth, thickness, subungual debris, and necrotic tissue, by manual and/or electrical means through the use of a nail nipper and/or dremel-type salvage grinder, to a more viable healthy nail plate or bed tissue 6-10. Silver nitrate used for any petechial bleeding as necessary. Definitive antifungal treatment options have been reviewed and discussed with the patient. The patient chooses, no pharmaceutical tx - 76512.?Keratoma Treatment:?Parring or Cutting of Benign Hyperkeratotic Lesion(s)?The Benign hyperkeratotic lesion, as described above was pared, and/or cut utilizing a sterile 15 blade, tissue nippers, and/or dremel sub 4th metatarsal head on the right foot.? * Procedure Codes:?28947 DEBRI DE NAIL, 6 OR MORE * Preventive Medicine:? ??Counseling:?Discussion:?-13: Office or other outpatient visit for the evaluation and management of an established patient, which required a medically appropriate history and/or examination and LOW level of DECISION MAKING for: 1 STABLE ACUTE UNCOMPLICATED PROBLEM, 2 OR MORE MINOR PROBLEMS, OR 1 STABLE CHRONIC PROBLEM, THAT POSE(S) A LOW RISK FOR MORBIDITY/MORTALITY. The visit on the day of the encounter encompassed interpreting the data and educating the patient as to the nature of their condition, treatment options available according to their individual PMH, meds, allergies, and overall health/living conditions, as well as any potential risks or complications that may occur from a failure to adhere to, and participate in, the recommended course of therapy. The discussion included a complete verbal, and/or written explanation of the examination results, any x-rays taken, the proposed diagnosis, and outline of the treatment plan. A schedule for future care needs was also explained. The patient verbalized an understanding of the instructions at this time and agreed to be an active participant in their treatment. If the patient should think of any questions or concerns after the visit, I have encouraged the patient to call the office.?Xerosis:?The patient was counseled on the diagnosis, potential etiologies, and treatment options for their skin condition. We discussed the risks and benefits of each option from performing no treatment, to utilizing OTC topical skin creams/ointments, to utilizing prescription topical creams/ointments, to utilizing customized compounded topical medications and use of nocturnal occlusion with any/all previously detailed therapies. We discussed the advantages and disadvantages of each possible treatment and importance for adherence to all the recommended therapies for optimum success and avoid potential complications such as open sore/infection/possible hospitalization. We discussed the potential effectiveness of each topical preparation as well as each ones possible side effects and/or patient medication interactions. Patient questions re: use, dosage, successful outcomes, and application consistency were reviewed and the patient verbalized that all answers were clearly understood. The patient has decided to apply OTC skin creams to their feet save the interspaces while paying special attention to the heels..? * Follow Up:?2 Months * Images: * Sign off status: Completed true * Provider:?Renaldo Bello D.P.M. Date:?06/2023 Generated for Maddie bradford/Oscar/eTransmitting on:?04/21/2024 03:44 PM EST History and Physical Notes * HPI (History of Present Illness) Category Sub-Category Detail Notes Category Not es Painful Nails Aggravated by: shoegear causing difficulty standing/walking , walking Duration: many years Location: 1-5 digits B/L Nature: aching , dull Treatments: Debridement Severity/Quality: Moderate Pt States Last PCP Visit: Date:: 09/19/2023 Skin problems Nature: itching , dryness , scaling B/L Location: Top , Forefoot , Pacheco l/Rearfoot , B/L Duration: several months Onset/Cause: gradual Course: recurrent Aggravated by: no aggrevating facto rs Treatments: none Severity/Quality: moderate Examination Category Sub-Category Detail Notes Category Not es Dermatologic SKIN FINDINGS: Skin shows sign( s) of, dryness, scaling, in a stocking fashion, no fissure(s) present, B/L POROKERATOSIS: painful , well encap sulated , sub 4th metatarsal right foot. Painful to direct pressure Nails NAILS are: Elongated, overg rown, dystrophic, lytic, greater than 3mm thick, discolored and friable with crumbly malodorous subungual debris, with pain on palpation on the 1-5 digits B/L
--- OUTSIDE RECORDS SUMMARY | 2024-04-21 15:45 | XMS_ITS ---
Author Organization [facility] Address [address] [place] [address] Care Team Providers Care Humanities Division Chair Name Role Phone Vikash Massey MD Primary Care Provider Unavail able Renaldo Bello Unavailable [phone] Viky Yoder [phone] Encounters Encounter Location Date Provider Diagnosis [address] [address] 12/30/2023 Viky Yoder Plan Of Treatment Next Appt Details Provider Name:Renaldo Bello, 06/16/2024 02:30:00 PM, [address] [place] [address], [address], Progress Notes * Argenis DOWNS MDOB: [birth year] (83 yo F)Acc No.[id number]:12/30/2023 Progress Note Patient:?Roberta DOWNScory Aguirre Provider:?Viky Yoder DPM :1940???Age:83 Y???Sex:Female D ate:12/30/2023 Address:[address] [place] [address] Pcp:Vikash Massey MD Subjective: * Chief Complaints: * ??? * Medical History:? Objective: * Vitals:? Assessment: Plan: * Treatment: * Images: * The named appointment provid er may or may not be the originator of this progress note, and it is not deemed complete until electronically signed by the appointment provider. Sign off status: Pending * Provider:Lucía Yoder DPM Date:? Generated for Maddie bradford/Oscar/Stephen on:?04/21/2024 03:44 PM EST
--- OUTSIDE RECORDS SUMMARY | 2024-04-21 15:45 | XMS_ITS | Patient Health Record ---
[facility] Address [address] [place] [address] Care Team Providers Care Telegraph Messenger Name Role Phone Shilpa THOMAS, Vikash Primary Care Provider Unavail able Renaldo Bello Unavailable [phone] Viky Yoder Unavailable [phone] Allergies Allergen (clinical drug ingredient) Drug/Non Drug Allergy documented on EMR Reaction Allergy Type Onset Date Status Penicillin Unknown Drug Allergy Active Reason For Referral No Information Medications Medication SIG (Take, Route, Frequency, Duration) Notes Start Date End Date Status amLODIPine Besy-Benazepril HCl 2.5-10 MG as directed Orally Active Famotidine 20 MG 1 tablet at bedtime as needed Orally Once a day for 30 day(s) Active Simvastatin Active Warfarin Sodium 6 MG 1 tablet Orally Active valACYclovir HCl 500 MG 1 tablet Orally Once a day Active Sodium Bicarbonate A ctive Aspirin 81 mg Not-Ta darlene Glucosamine Chondr Complex 500 mg Not-Taking Calcium + D 600 mg N ot-Taking Levothyroxine Sodium 50 MCG 1 tablet on an empty stomach in the morning Orally Once a day Active Centrum Silver Activ e Immunizations Vaccine Route Administration Date Status Comme nts COVID-19 Pfizer BioNTech Vaccine Unknown 01/11/2021 Administered 1st 06/04/20 2nd 06/14/20 Social History Tobacco Use: Social History Observation Description Date Details (start date - stop date) Never Smoker NA - NA Tobacco Control (Standard) Question Answer Notes Tobacco use: Nonsmoker Additional Findings: Tobacco non-user Current no nsmoker AUDIT-C (Standard) Question Answer Notes Did you have a drink containing alcohol in the p ast year? No Points 0 Interpretation Negative Problems Problem Type SNOMED Code ICD Code Onset Dates Problem Status W/U Status Risk Notes Problem Plantar wart (22004683) Plantar wart (B07.0) Active confirmed Problem Localized, primary osteoarthritis of the ankle and/or foot (771841924) Primary osteoarthritis, 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 confirmed Problem Acquired hammer toe of left foot (1809955812642220) Other hammer toe(s) (acquired), left foot (M20.42) Active confirmed Problem 479221783 Porokeratosis (Q82.8) Active confirmed Vital Signs Blood pressure diastolic 78 mm Hg 03/31/2024 Height 5 ft 6 in in 03/31/2024 Blood pressure systolic 116 mm Hg 03/31/2024 Weight 192 lbs 03/31/2024 BMI 30.99 kg/m2 03/31/2024 Procedures Procedure Date Ordered Date Performed Result Body Sit e 45643-EGDAOVY NAIL, 6 OR MORE 01/16/2024 N/A 37521-MTYXGRL NAIL, 6 OR MORE 03/31/2024 N/A Encounters Encounter Location Date Provider Diagnosis [address] [address] 05/09/2023 Viky Perica Tinea unguium B35.1 ; Pain in right toe(s) M79.674 ; Pain in left toe(s) M79.675 ; Right foot pain M79.671 ; Plantar wart B07.0 and Left foot pain M79.[address] [address] 07/18/2023 Viky Perica Tinea unguium B35.1 ; Pain in right toe(s) M79.674 ; Pain in left toe(s) M79.675 ; Right foot pain M79.671 ; Plantar wart B07.0 and Left foot pain M79.[address] [address] 09/23/2023 Viky Perica Tinea unguium B35.1 ; Pain in right toe(s) M79.674 ; Pain in left toe(s) M79.675 ; Right foot pain M79.671 and Plantar wart B07.[address] [address] 01/16/2024 Renaldo Bello Tinea unguium B35.1 ; Pain in right toe(s) M79.674 ; Pain in left toe(s) M79.675 and Xerosis cutis L85.[address] [address] 03/31/2024 Renaldo Bello Tinea unguium B35.1 ; Pain in right toe(s) M79.674 and Pain in left toe(s) M79.[address] [address] 12/30/2023 Viky Yoder Assessments Encounter Date Diagnosis (ICD Code) Assessment Notes Treatment Notes Treatment Clinical Notes Section Notes 05/09/2023 Tinea unguium (ICD-10 - B35.1) 07/18/2023 Tinea unguium (ICD-10 - B35.1) 09/23/2023 Tinea unguium (ICD-10 - B35.1) 01/16/2024 Tinea unguium (ICD-10 - B35.1) 01/16/2024 Pain in right toe(s) (ICD-10 - M79.674) 03/31/2024 Tinea unguium (ICD-10 - B35.1) 03/31/2024 Pain in right toe(s) (ICD-10 - M79.674) 03/31/2024 Pain in left toe(s) (ICD-10 - M79.675) 01/16/2024 Pain in left toe(s) (ICD-10 - M79.675) 09/23/2023 Pain in right toe(s) (ICD-10 - M79.674) 07/18/2023 Pain in right toe(s) (ICD-10 - M79.674) 05/09/2023 Pain in right toe(s) (ICD-10 - M79.674) 05/09/2023 Pain in left toe(s) (ICD-10 - M79.675) 07/18/2023 Pain in left toe(s) (ICD-10 - M79.675) 09/23/2023 Pain in left toe(s) (ICD-10 - M79.675) 01/16/2024 Xerosis cutis (ICD-10 - L85.3) Application of [place]-Soothe skin care lotion to the feet 09/23/2023 Right foot pain (ICD-10 - M79.671) 07/18/2023 Right foot pain (ICD-10 - M79.671) 05/09/2023 Right foot pain (ICD-10 - M79.671) 05/09/2023 Plantar wart (ICD-10 - B07.0) 05/09/2023 Left foot pain (ICD-10 - M79.672) 07/18/2023 Plantar wart (ICD-10 - B07.0) 09/23/2023 Plantar wart (ICD-10 - B07.0) 07/18/2023 Left foot pain (ICD-10 - M79.672) 03/31/2024 Other Plan Of Treatment Pending Test Test Name Order Date X ray : Foot, right 3V 03/24/2013 54258-[id number] NAIL, 6 OR MORE 01/16/2024 49582-[id number] NAIL, 6 OR MORE 03/31/2024 71100, J0702- INJECT or DRAIN, JOINT/BUR SA 09/24/2017 34202, J0702- INJECT or DRAIN, JOINT/BUR SA 10/27/2019 94731, J0702- INJECT or DRAIN, JOINT/BUR SA 04/28/2021 67747, J0702- Neuroma/Injection 03/24/20 13 78998, J0702- Neuroma/Injection 12/25/19 14 Next Appt Details Provider Name:Renaldo Bello, 06/16/2024 02:30:00 PM, [address] [facility], [place], [address], Insurance Providers Payer Name Payer Address Payer Phone Subscriber Number Group Number Insured Name Patient Relationship to Insured Coverage Start Date Coverage End Date Medicare National [employer] [address] [facility] [place] [address] [id number] CollinmarRoberta stormne Self - patient is the insured [facility] [address] [place] [address] [id number] Argenis Nova Self - patient is the insured Medical (General) History Medical History History ICD Code osteoarthritis breast cancer measles mumps chicken pox Lyme disease Back,Hip,and Knee pain Psoriasis/eczema Thyroid disorder Multiple Myloma Pneumonia bronchitis acute Kidney disease Surgical History Surgery Date(Month/Year) Bone Spurs 1982 neck surgery - vertebrae fusion 1984 breast surgery - cancer 2009 Hospitalization History Reason Date(Month/Year) multiple myeloma chemotherapy
== END 2024-04-21 13:58 | disposition home or self-care (01) ==
PROVIDERS: Visit Provider Internal Medicine Nephrology
DX: N18.4 Chronic kidney disease, stage 4 (severe) (principal); E87.20 Acidosis, unspecified; D63.8 Anemia in other chronic diseases classified elsewhere
CPT/HCPCS: 99214

== ENCOUNTER → 2024-04-21 13:17 | Outpatient (BNVA) | payer MEDICARE, OTHER, SELFPAY | PROVIDERS: Visit Provider Internal Medicine Nephrology | DX: N18.4 Chronic kidney disease, stage 4 (severe) (principal); E87.20 Acidosis, unspecified; D63.8 Anemia in other chronic diseases classified elsewhere | CPT/HCPCS: 99212 ==

== ENCOUNTER 2024-07-21 11:44 | Outpatient (AMB) | payer MEDICARE, OTHER, SELFPAY ==
--- NOTE | 2024-07-21 12:08 | HO.NEPHOV_ITS ---
Vital Signs 07/21/24 12:09 Height 5 ft 5 in Weight 186 lb 6 oz BMI 31.0 BP 138/80 Blood Pressure Location Lt brachial Position Sitting Pulse 82 Pulse Source Pulse Oximeter Pulse Oximetry (%) 96 Oxygen Delivery Method Room Air Intake Visit Reasons: Follow Up 3mo-LVM Filter Press Tender Head Required: No Accompanied by: Self / Same As Patient Allergies Penicillins Allergy (Verified 07/21/24 12:09) Unknown HPI Comments Details: Argenis is a 82-year-old female whom I had the privilege of seeing in follow-up. She had acute kidney injury from multiple myeloma and had been on dialysis. Her GFR had improved with good urine output and subsequently her dialysis was discontinued. She gets chemotherapy once a week from Dr. Jackson. Her anemia is managed by her service attendant . She does not have any new bone pain, back pain, high serum calcium. Her GFR has improved to 18 mls/mt. She denies any chest pain, shortness of breath, nausea vomiting, diarrhea, orthostatic symptoms or pedal edema. Her appetite is good and her energy levels are acceptable. She had no new antibiotic intake, hospitalizations or any infections recently. She does not have any dysuria, hematuria, flank pain. She has been having intermittent incontinence. She feels improved otherwise. [facility] Medical History (Updated 02/18/23 @ 11:44 by John Diaz MD) H/O malignant neoplasm of breast Multiple myeloma History of hemodialysis Anemia of chronic disease Metabolic acidosis Acute kidney injury Chronic kidney disease, stage 4 (severe) Social History Alcohol intake: never Patient Tobacco Use Status: Never used Tobacco Review of Systems Const All systems reviewed & are unremarkable except as noted in HPI and below Physical Exam Vital Signs: Last Vital Signs Pulse 82 07/21/24 12:09 BP 138/80 07/21/24 12:09 Pulse Ox 96 07/21/24 12:09 Oxygen Delivery Method Room Air 07/21/24 12:09 BMI result Body Mass Index 31.0 Const General: comfortable and no acute distress Orientation/consciousness: patient oriented x3 HEENT Head: Yes normocephalic Mouth: Normal oral and palatal mucosa present Eyes EOM: EOMs intact bilaterally Neck Neck: Yes supple Resp Auscultation: clear to auscultation bilaterally Cardio Jugular venous distension: no JVD Rate: regular rate GI Palpation (GI): Soft to palpation Auscultation: normal bowel sounds General: Yes no CVA tenderness Back/Spine/Pelvis Back: no CVA tenderness Skin General skin exam: no rashes or lesions noted Neuro General: patient oriented x3 and moves all extremities Extrem General: Yes no pedal edema Results Reviewed Nephrology Results: No Data to Display Assessment & Plan Assessment & Plan (1) Chronic kidney disease, stage 4 (severe): Code(s): N18.4 - Chronic kidney disease, stage 4 (severe) Category: Medical (2) Metabolic acidosis: Code(s): E87.20 - Acidosis, unspecified Category: Medical (3) Anemia of chronic disease: Code(s): D63.8 - Anemia in other chronic diseases classified elsewhere Category: Medical Plan Argenis has chronic kidney disease stage 4. She has multiple myeloma and had been getting chemotherapy. She is closely followed by her oncologist. Her GFR has been stable ever since she had come off hemodialysis. Her urine output is good. Her volume status is acceptable. Her serum potassium is normal . She should continue NaHCO3 650 mg 2 tablets AM and 2 tablet PM. She has anemia chronic disease and is managed by her oncologist. I have ordered follow-up blood work. She should maintain good hydration. She should avoid nonsteroidal inflammatory medications as well as Bactrim if possible. She may need to see a Urologist. I did not make any medication changes at this office visit. All her questions were answered. Follow-up given Coding Level of Care Code Est Pt Level 4 (85169) Diagnoses Chronic kidney disease, stage 4 (severe) N18.4 Metabolic acidosis E87.20 Anemia of chronic disease D63.8
[2024-07-21 12:09] VITALS: BP 138/80; PULSE 82; O2SAT 96; BMI 31.0
--- OUTSIDE RECORDS SUMMARY | 2024-07-21 14:28 | XMS_ITS | Encounter Summary ---
Author Organization [facility] Address [address] [place] [address] Care Team Providers Care Psychology Department Chair Name Role Phone Vikash Massey MD Primary Care Provider [phone] Encounter Details Date Type Department Care Team (Latest Contact Info) Description 01/17/2024 10:45 AM EDT Hospital Encounter [facility] ONLY Multiple myeloma not having achieved remission (CMS/HCC) Social History Tobacco Use Types Packs/Day Years [...] Care Team (Late st Contact Info) Description 08/14/2024 10:30 AM EDT Office Visit [facility] Hematology Oncology [address] [place] [address] Sarbjit-Chika Jackson MD [address] [place] [address] documented as of this encounter Procedures Procedure Name Priority Date/Time Associated Diagnosis Comments ..MISCELLANEOUS REFERENCE LAB TEST 01/17/2024 documented in this encounter Results * Miscellaneous reference lab test (01/17/2024) us Provider Onbase LAB BLOOD ORDERABLES Final Re sult documented in this encounter Visit Diagnoses Diagnosis Multiple myeloma not having achieved remission (CMS/HCC) documented in this encounter Care Teams Psychology Department Chair Relationship Specialty Start Date End Date Vikash Massey MD [address] [place] [address] PCP - General Internal Medicine 06/27/20 documented as of this encounter
--- OUTSIDE RECORDS SUMMARY | 2024-07-21 14:28 | XMS_ITS | Encounter Summary ---
Author Organization [facility] Address [address] [place] [address] Care Team Providers Care Gym Teacher Name Role Phone Vikash Massey MD Primary Care Provider [phone] Encounter Details Date Type Department Care Team (Late st Contact Info) Description 01/17/2024 10:15 AM EDT Hospital Encounter [facility]NC[facility] ONLY Chika Vee MD [address] [place] [address] Social History Tobacco Use Types Packs/Day Years [...] Description 08/14/2024 10:30 AM EDT Office Visit [facility] Hematology Oncology [address] [place] [phone] Chika Vee MD [address] [place] [address] documented as of this encounter Visit Diagnoses Not on filedocumented in this encounter Care Teams Gym Teacher Relationship Specialty Start Date End Date Vikash Massey MD [address] [place] [address] PCP - General Internal Medicine 06/27/20 documented as of this encounter
--- OUTSIDE RECORDS SUMMARY | 2024-07-21 14:28 | XMS_ITS | Encounter Summary ---
Author Organization [facility] Address [address] [place] [address] Care Team Providers Care Medical Support Specialist Name Role Phone Vikash Massey MD Primary Care Provider [phone] Encounter Details Date Type Department Care Team [...] Notes Results - 11/08/2023 11:00 AM EDT Argenis arrives for ongoing treatment with Bortezomib, dex [...] Description 08/14/2024 10:30 AM EDT Office Visit [facility] Hematology Oncology [address] [place] [address] Chika Vee MD [address] [place] [address] documented as of this encounter Procedures Procedure Name Priority Date/Time Associated Diagnosis Comments ..MISCELLANEOUS REFERENCE LAB TEST 11/08/2023 documented in this encounter Results * Miscellaneous reference lab test (11/08/2023) us Provider Onbase LAB BLOOD ORDERABLES Final Re sult documented in this encounter Visit Diagnoses Diagnosis Multiple myeloma not having achieved remission (CMS/HCC) documented in this encounter Care Teams Medical Support Specialist Relationship Specialty Start Date End Date Vikash Massey MD [address] [place] [address] PCP - General Internal Medicine 06/27/20 documented as of this encounter
--- OUTSIDE RECORDS SUMMARY | 2024-07-21 14:28 | XMS_ITS | Encounter Summary ---
Author Organization [facility] [place] [address] Care Team Providers Care Adjunct Teacher Name Role Phone Vikash Massey MD Primary Care Provider [phone] Encounter Details Date Type Department Care Team [...] Description 08/14/2024 10:30 AM EDT Office Visit [facility] Hematology Oncology [address] [place] [address] Johnyonia-Chika Jackson MD [address] [place] [address] documented as of this encounter Visit Diagnoses Not on filedocumented in this encounter Care Teams Adjunct Teacher Relationship Specialty Start Date End Date Vikash Massey MD [address] [place] [address] PCP - General Internal Medicine 06/27/20 documented as of this encounter
--- OUTSIDE RECORDS SUMMARY | 2024-07-21 14:28 | XMS_ITS | Encounter Summary ---
Author Organization [facility] [place] [address] [address] Care [address] Attendant Name Role Phone Vikash Massey MD Primary Care Provider [phone] Encounter Details Date Type Department Care Team [...] 08/14/2024 10:30 AM EDT Office Visit [facility] Hematology Oncology [address] [place] [phone] Sarbjit-Chika Jackson MD [address] [place] [phone] documented as of this encounter Visit Diagnoses Not on filedocumented in this encounter Care Teams Court Attendant Relationship Specialty Start Date End Date Vikash Massey MD [address] [place] [address] PCP - General Internal Medicine 06/27/20 documented as of this encounter
--- OUTSIDE RECORDS SUMMARY | 2024-07-21 14:28 | XMS_ITS | Encounter Summary ---
Author Organization [facility] Address [address] [place] [address] Care Team Providers Care Clinical Laboratory Aide Name Role Phone Vikash Massey MD Primary Care Provider [phone] Encounter Details Date Type Department Care Team [...] Description 08/14/2024 10:30 AM EDT Office Visit [facility] Hematology Oncology [address] [place] [address] Sarbjit-Chika Jackson MD [address] [place] [address] documented as of this encounter Procedures Procedure Name Priority Date/Time Associated Diagnosis Comments ..MISCELLANEOUS REFERENCE LAB TEST 12/06/2023 ..MISCELLANEOUS REFERENCE LAB TEST 12/06/2023 documented in this encounter Results * Miscellaneous reference lab test (12/06/2023) Provider Onbase MD LAB BLOOD ORDERABLES Final Re sult * Miscellaneous reference lab test (12/06/2023) us Provider Onbase MD LAB BLOOD ORDERABLES Final Re sult documented in this encounter Visit Diagnoses Diagnosis Multiple myeloma not having achieved remission (CMS/HCC) documented in this encounter Care Teams Clinical Laboratory Aide Relationship Specialty Start Date End Date Vikash Massey MD [address] [place] [address] PCP - General Internal Medicine 06/27/20 documented as of this encounter
--- OUTSIDE RECORDS SUMMARY | 2024-07-21 14:28 | XMS_ITS | Encounter Summary ---
Author Organization [facility] Address [address] [place] [address] Care Team Providers Care Corn Chip Maker Name Role Phone Vikash Massey MD Primary Care Provider [phone] Encounter Details Date Type Department Care Team [...] Description 08/14/2024 10:30 AM EDT Office Visit [facility] Hematology Oncology [address] [place] [phone] Sarbjit-Chika Jackson MD [address] [place] [phone] documented as of this encounter Procedures Procedure Name Priority Date/Time Associated Diagnosis Comments ..MISCELLANEOUS REFERENCE LAB TEST 11/22/2023 documented in this encounter Results * Miscellaneous reference lab test (11/22/2023) us Provider Onbase LAB BLOOD ORDERABLES Final Re sult documented in this encounter Visit Diagnoses Diagnosis Multiple myeloma not having achieved remission (CMS/HCC) documented in this encounter Care Teams Corn Chip Maker Relationship Specialty Start Date End Date Vikash Massey MD [address] [place] [address] PCP - General Internal Medicine 06/27/20 documented as of this encounter
--- OUTSIDE RECORDS SUMMARY | 2024-07-21 14:28 | XMS_ITS ---
Author Organization [facility] Address [address] [place] [address] Care Team Providers Care Office Machine Servicer Apprentice Name Role Phone Shilpa THOMAS, Vikash Primary Care Provider Unavail able Renaldo Bello Unavailable [phone] Viky Yoder Unavailable [phone] Allergies Allergen (clinical drug ingredient) Drug/Non Drug Allergy documented on EMR Reaction Allergy Type Onset Date Status Penicillin Unknown Drug Allergy Active REASON FOR VISIT Painful nail(s) aggrevated by shoes causing difficulty standing/walking, Wart(s), Skin problem(s) Medications Medication SIG (Take, Route, Frequency, Duration) Notes Start Date End Date Status valACYclovir HCl 500 MG 1 tablet Orally Once a day Active Warfarin Sodium 6 MG 1 tablet Orally Active Simvastatin Active Famotidine 20 MG 1 tablet at bedtime as needed Orally Once a day for 30 day(s) Active amLODIPine Besy-Benazepril HCl 2.5-10 MG as directed Orally Active Sodium Bicarbonate A ctive Glucosamine Chondr Complex 500 mg Not-Taking Aspirin 81 mg Not-Ta darlene Levothyroxine Sodium 50 MCG 1 tablet on an empty stomach in the morning Orally Once a day Active Calcium + D 600 mg N ot-Taking Centrum Silver Activ e Social History Tobacco Use: Social History Observation Description Date Details (start date - stop date) Never Smoker NA - NA Tobacco Control (Standard) Question Answer Notes Tobacco use: Nonsmoker Additional Findings: Tobacco non-user Current no nsmoker AUDIT-C (Standard) Question Answer Notes Did you have a drink contain ing alcohol in the past year? Yes How often did you have a dri nk containing alcohol in the past year? Monthly or less (1 point) How many drinks did you have on a typical day when you were drinking in the past year? 1 or 2 drinks (0 point) How often did you have six o r more drinks on one occasion in the past year? Never (0 point) Points 1 Interpretation Negative Vital Signs Height 5 ft 5 in in 06/15/2024 Weight 182 lbs 06/15/2024 BMI 30.28 kg/m2 06/15/2024 Blood pressure systolic 132 mm Hg 06/16/19 25 Blood pressure diastolic 79 mm Hg 025 Encounters Encounter Location Date Provider Diagnosis [facility] [place] [address] [place] [address] 06/15/2024 Viky Yoder Tinea unguium B35.1 ; Pain in right toe(s) M79.674 ; Pain in left toe(s) M79.675 ; Right foot pain M79.671 ; Plantar wart B07.0 and Xerosis of skin L85.3 Assessments Encounter Date Diagnosis (ICD Code) Assessment Notes Treatment Notes Treatment Clinical Notes Section Notes 06/15/2024 Tinea unguium (ICD-10 - B35.1) 06/15/2024 Pain in right toe(s) (ICD-10 - M79.674) 06/15/2024 Pain in left toe(s) (ICD-10 - M79.675) 06/15/2024 Right foot pain (ICD-10 - M79.671) 06/15/2024 Plantar wart (ICD-10 - B07.0) 06/15/2024 Xerosis of skin (ICD-10 - L85.3) Plan Of Treatment Next Appt Details Follow Up: 2 Months, Reason: Provider Name:Viky wheeler, 08/20/2024 03:00:00 PM, [address] [place], [address], Procedure Notes * Category Sub-Category Detail Notes Wart Treatment Procedure Verrucae were de brided to pin-point bleeding margins with sterile 15 surgical blade, silver nitrate chemocautery applied, recomm. immune-boosting meds such as zinc, recomm. follow up with topical chemosurgical agents, Pt defers any other forms of tx (34137) Debride Nail 6-10 Nail debridement Due to the cl inical pathology outlined in the exam findings, performance of this nail treatment is medically necessary as its management by an unskilled/untrained nonprofessional would put this patients foot and overall health at risk. Therefore, debridement to affected nail(s), as described in exam ( TA, T1, T2, T3, T4, T5, T6, T7, T8, T9, ), was performed exclusively by the physician of record to reduce/remove overall nail length, girth, thickness, subungual debris, and necrotic tissue, by manual and/or electrical means through the use of a nail nipper and/or dremel-type bit grinder, to a more viable healthy nail plate or bed tissue 6-10 nails in total. Silver nitrate was used for any petechial bleeding as necessary. Definitive antifungal treatment options, both pharmaceutical and surgical, have been reviewed and discussed with the patient. The patient solely prefers the use of intermittent/as needed professional debridement services for their nail condition and understands the need for additional periodic treatments to maintain effectiveness in symptomatic relief - 18322 Progress Notes * Argenis DOWNS MDOB: [birth year] (83 yo F)Acc No.[id number]:06/15/2024 Progress Note Patient:?Argenis DOWNS Carla Provider:?Viky Yoder DPM :1940???Age:83 Y???Sex:Female D ate:06/15/2024 Address:[address] [place], [place] [address] Pcp:Vikash Massey MD Subjective: * Chief Complaints: * ???Painful nail(s) aggrevate d by shoes causing difficulty standing/walkingWart(s)Skin problem(s) * HPI: ???Painful Nails:?Pt States Last PCP Visit:?Date:?04/28/2024 ???Skin problems:?Pt States PCP Visit: ?DATE?04/28/2023 ?Nature:?dryness , scaling.?Location:?B/L .?Duration:?several days.?Course:?worse.? * ROS:?General/Constitutional:?Nausea?denies?.?Vomiting?denies?.?Hunger Thirst?denies?.?Loss appetite?denies?.?Chills?denies.?Fatigue?denies.?Fever?denies.?Night Sweats?denies.?Unexplained weight loss?denies?.?Unexplained weight gain?denies?.?HEENTM:?Dentures?denies, denies.?Dizziness?denies.?Glasses/contacts?denies.?Retinopathy?denies.?Blurred/d ouble vision?denies?.?TMJ?denies?.?Discharge/drainage?denies.?Implants?denies .?S ore throat?denies.?Dental implants?denies.?Hard of hearing ?denies?.?Difficulty chewing/swallowing/speaking?denies.?Nose bleeds?denies?.?Sore mouth?denies?.?Respiratory:?On Oxygen?denies.?Pneumonia/pleurisy?denies?.?Bronchitis?denies.?Emphysema?denies?. ?Coughing?denies.?Cough blood?denies?.?Shortness of breath?denies?.?Wheezing?denies?.?Cardiovascular:?Pacemaker?denies.?MVP?denies?.?WPW?denies.?CHF?denies?.?Heart attack?denies?.?Septal defect?denies?.?Rapid beat?denies.?Chest pain ?denies.?Atrial Fib.?denies.?Murmur/Palpitations?denies.?Gastrointestinal:?Hemorrhoids?denies?.?Stomach/Abdominal pain?denies.?Dark blood stool?denies?.?Irritable bowel ?denies?.?Constipation?denies?.?Diarrhea?denies.?Hematology:?Swelling?denies.?Clots?denies?.?Varicose Veins?denies?.?Bruising?denies.?Bleeding problem?denies?.?Genitourinary:?Blood urine?denies.?Frequent/Painfu/urination/bladder control?denies?.?Kidney stones?denies?.?Infection (UTI)?denies?.?Nephropathy?denies.?sex trans dis (STD)?denies?.?Prostate?denies?.?Musculoskeletal:?Hammertoes?denies,.?Bunions?denies.?Back Pain?denies?.?Muscle Cramps/ Resting?denies.?Muscle cramps / walking?denies, denies.?Generalized aches and pains?denies, denies.?Weakness?denies, denies.?Integ.:?Mary?denies.?Scars?denies.?Corns/calluses?admits?.?Ingrown nails?denies.?Painful nails?admits.?Open Sores?denies?.?Itching?admits.?Rashes?denies.?Scaly lesions of skin/scalp?admits.?Neurologic:?Difficulty sleeping?denies.?Brain disorder?denies?.?Numbness?denies?.?Balance trouble?denies?.?Confusion?denies?.?Fainting/blackouts?denies?.?Tingling?admits. ?Tremors?denies?.? * Medical History:? * Surgical History:?Bone Spurs 1983neck surgery - vertebrae fusion 1985breast surgery - cancer 2009 * Hospitalization/Major Diagno stic Procedure:?multiple myeloma chemotherapy * Family History:?Mother: dece ased, diagnosed with Other malignant neoplasm of unspecified site.?Father: , diagnosed with Unspecified heart disease, Family history of arthritis.?Siblings: cancer.?Spouse: alive.? * Social History:?Tobacco Use:?Tobacco use other than smoking?Are you an other tobacco user? No.?Tobacco Control (Standard)?Tobacco use:?Nonsmoker ?Additional Findings: Tobacco non-user?Current nonsmoker ???Drugs/Alcohol:?Drugs?Have you used drugs other than those for medical reasons in the past 12 months??No ???Miscellaneous:?Caffeine: yes, 1-2 cups per day. ?Children: no. ?Exercise: yes, walking. ?Marital status: . ?Occupation: retired teacher. ???Drug/Alcohol:?AUDIT-C (Standard)?Did you have a drink containing alcohol in the past year??Yes ?How often did you have a drink containing alcohol in the past year??Monthly or less (1 point) ?How many drinks did you have on a typical day when you were drinking in the past year??1 or 2 drinks (0 point) ?How often did you have six or more drinks on one occasion in the past year??Never (0 point) ?Points?1 ?Interpretation?Negative * Medications:?TakingSodium Bi carbonate valACYclovir HCl 500 MG Tablet 1 tablet Orally Once a day Warfarin Sodium 6 MG Tablet 1 tablet Orally Simvastatin Famotidine 20 MG Tablet 1 tablet at bedtime as needed Orally Once a day amLODIPine Besy- Benazepril HCl 2.5-10 MG Capsule as directed Orally Centrum Silver Levothyroxine Sodium 50 MCG Tablet 1 tablet on an empty stomach in the morning Orally Once a day Taking Sodium Bicarbonate Taking valACYclovir HCl 500 MG Tablet 1 tablet Orally Once a day Taking Warfarin Sodium 6 MG Tablet 1 tablet Orally Taking Simvastatin Taking Famotidine 20 MG Tablet 1 tablet at bedtime as needed Orally Once a day Taking amLODIPine Besy-Benazepril HCl 2.5-10 MG Capsule as directed Orally Taking Centrum Silver Taking Levothyroxine Sodium 50 MCG Tablet 1 tablet on an empty stomach in the morning Orally Once a day Not-Taking/PRNCalcium + D 600 mg Glucosamine Chondr Complex 500 mg Aspirin 81 mg Medication List reviewed and reconciled with the patientNot-Taking/PRN Calcium + D 600 mg Not-Taking/PRN Glucosamine Chondr Complex 500 mg Not-Taking/PRN Aspirin 81 mg Medication List reviewed and reconciled with the patient * Allergies:?Penicillinyes[All ergies Verified] Objective: * Vitals:?Ht: 5 ft 5 in, Wt: 1 82, BMI: 30.28, Shoe size: 8m, BP: 132/79 mm Hg, Ht- cm: 165.1 cm, Wt-k.55 kg. * Examination: ???Nails: ?NAILS are:?Elongated, overgrown, dystrophic, lytic, greater than 3mm thick, discolored and friable with crumbly malodorous subungual debris, with pain on palpation, TA, T1, T2, T3, T4, T5, T6, T7, T8, T9.?Dermatologic: ?SKIN FINDINGS:?Skin shows sign(s) of, dryness, scaling, in a stocking fashion, no fissure(s) present, B/L.?VERRUCA:?Reveals a Single , multi-loculated , mosaic-patterned, round, raised, flat-topped, petechial bleeding papule(s), with cauliflower appearance and interruption of skin lines, pain to lateral compression, and size estimated at 5mm diameter, plantar Forefoot, RIGHT.?General Examination: ?GENERAL APPEARANCE:?Reveals a pleasant, alert, well nourished, well- developed, well hydrated individual, who demonstrates proper attention to hygiene/body habitus, and is in no acute distress, Pt serves as own historian for office visit today.?ORIENTED:?person, place, and time.?Neurological: ?SENSORY:?Neurological exam reveals intact sensorium, pain sensation normal, vibration sensation intact, pinprick sensation is normal in the lower extremities, Pt denies, anesthesia, burning, paresthesia, tingling, B/L.? Assessment: * Assessment: 1.?Tinea unguium - B35.1???2 .?Pain in right toe(s) - M79.674???3.?Pain in left toe(s) - M79.675???4.?Right foot pain - M79.671???5.?Plantar wart - B07.0 (Primary)???6.?Xerosis of skin - L85.3???Specify :Acute problem, Uncomplicated (3),Rx Management (4)??? Plan: * Treatment: * Procedures:?Debride Nail 6-10:?Nail debridement?Due to the clinical pathology outlined in the exam findings, performance of this nail treatment is medically necessary as its management by an unskilled/untrained nonprofessional would put this patients foot and overall health at risk. Therefore, debridement to affected nail(s), as described in exam ( TA, T1, T2, T3, T4, T5, T6, T7, T8, T9, ), was performed exclusively by the physician of record to reduce/remove overall nail length, girth, thickness, subungual debris, and necrotic tissue, by manual and/or electrical means through the use of a nail nipper and/or dremel-type bit grinder, to a more viable healthy nail plate or bed tissue 6- 10 nails in total. Silver nitrate was used for any petechial bleeding as necessary. Definitive antifungal treatment options, both pharmaceutical and surgical, have been reviewed and discussed with the patient. The patient solely prefers the use of intermittent/as needed professional debridement services for their nail condition and understands the need for additional periodic treatments to maintain effectiveness in symptomatic relief - 10385.?Wart Treatment:?Procedure?Verrucae were debrided to pin-point bleeding margins with sterile 15 surgical blade, silver nitrate chemocautery applied, recomm. immune-boosting meds such as zinc, recomm. follow up with topical chemosurgical agents, Pt defers any other forms of tx (12572).? * Procedure Codes:?32418 DEBRI DE NAIL, 6 OR MORE, Modifiers: XS 97014 Wart Destruction, 1-14, Modifiers: XS * Preventive Medicine:? ??Counseling:?Discussion:?-13: Office or other [...] patient verbalized that all answers were clearly understood.? ??Screening/Special Tests:?Fall Risk?Screening:?No falls in the past year ?FALLS: Screening for Future Fall Risk?Have you had any falls with injury in the past year??No * Follow Up:?2 Months * Images: * Sign off status: Completed true * Provider:?Viky Yoder DPM Date:?06/2024 Generated for Maddie bradford/Oscar/Veritosmkamran on:?07/21/2024 02:28 PM EDT History and Physical Notes * HPI (History of Present Illness) Category Sub-Category Detail Notes Category Not es Painful Nails Pt States Last PCP Visit: Date:: 04/28/2024 Skin problems Nature: dryness , scaling Location: B/L Duration: several days Course: worse Pt States PCP Visit: DATE: 04/28/2023 Examination Category Sub-Category Detail Notes Category Not es Neurological SENSORY: Neurological exa m reveals intact sensorium, pain sensation normal, vibration sensation intact, pinprick sensation is normal in the lower extremities, Pt denies, anesthesia, burning, paresthesia, tingling, B/L Dermatologic SKIN FINDINGS: Skin shows sign( s) of, dryness, scaling, in a stocking fashion, no fissure(s) present, B/L VERRUCA: Reveals a Single , m ulti-loculated , mosaic-patterned, round, raised, flat-topped, petechial bleeding papule(s), with cauliflower appearance and interruption of skin lines, pain to lateral compression, and size estimated at 5mm diameter, plantar Forefoot, RIGHT General Examination GENERAL APPEARANCE: Reveals a pleasant, alert, well nourished, well-developed, well hydrated individual, who demonstrates proper attention to hygiene/body habitus, and is in no acute distress, Pt serves as own historian for office visit today ORIENTED: person, place, and t lulú Nails NAILS are: Elongated, overg rown, dystrophic, lytic, greater than 3mm thick, discolored and friable with crumbly malodorous subungual debris, with pain on palpation, TA, T1, T2, T3, T4, T5, T6, T7, T8, T9
--- OUTSIDE RECORDS SUMMARY | 2024-07-21 14:29 | XMS_ITS | Patient Health Record ---
Author Organization [facility] Address [address] [place] [address] Care Team Providers Care Apron Worker Name Role Phone Shilpa THOMAS, Vikash Primary Care Provider Unavail able Renaldo Bello Unavailable [phone] Viky Yoder Unavailable [phone] Allergies Allergen (clinical drug ingredient) Drug/Non Drug Allergy documented on EMR Reaction Allergy Type Onset Date Status Penicillin Unknown Drug Allergy Active Reason For Referral No Information Medications Medication SIG (Take, Route, Frequency, Duration) Notes Start Date End Date Status Sodium Bicarbonate A ctive valACYclovir HCl 500 MG 1 tablet Orally Once a day Active Glucosamine Chondr Complex 500 mg Not-Taking Aspirin 81 mg Not-Ta darlene Warfarin Sodium 6 MG 1 tablet Orally Active Simvastatin Active Famotidine 20 MG 1 tablet at bedtime as needed Orally Once a day for 30 day(s) Active Levothyroxine Sodium 50 MCG 1 tablet on an empty stomach in the morning Orally Once a day Active Calcium + D 600 mg N ot-Taking amLODIPine Besy-Benazepril HCl 2.5-10 MG as directed Orally Active Centrum Silver Activ e Immunizations Vaccine [...] Never (0 point) Points 1 Interpretation Negative Problems Problem Type SNOMED Code ICD Code Onset Dates Problem Status W/U Status Risk Notes Problem Plantar wart (31084766) Plantar wart (B07.0) Active confirmed Problem Localized, primary osteoarthritis of the ankle and/or foot (255146960) Primary osteoarthritis, 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 confirmed Problem Acquired hammer toe of left foot (7518393966814716) Other hammer toe(s) (acquired), left foot (M20.42) Active confirmed Problem 553931958 Porokeratosis (Q82.8) Active confirmed Vital Signs Blood pressure diastolic 79 mm Hg 06/15/2024 Height 5 ft 5 in in 06/15/2024 Blood pressure systolic 132 mm Hg 06/15/2024 Weight 182 lbs 06/15/2024 BMI 30.28 kg/m2 06/15/2024 Procedures Procedure Date Ordered Date Performed Result Body Sit e 32845-QANVKSK NAIL, 6 OR MORE 01/16/2024 N/A 59716-EBWHNFA NAIL, 6 OR MORE 03/31/2024 N/A Encounters Encounter Location Date Provider Diagnosis [address] [address] 09/23/2023 Viky Yoder Tinea unguium B35.1 ; Pain in right toe(s) M79.674 ; Pain in left toe(s) M79.675 ; Right foot pain M79.671 and Plantar wart B07.[address] [address] 01/16/2024 Renaldo Bello Tinea unguium B35.1 ; Pain in right toe(s) M79.674 ; Pain in left toe(s) M79.675 and Xerosis cutis L85.[address] [address] 03/31/2024 Renaldo Bello Tinea unguium B35.1 ; Pain in right toe(s) M79.674 and Pain in left toe(s) M79.[address] [facility] [address] 06/15/2024 Viky Yoder Tinea unguium B35.1 ; Pain in right toe(s) M79.674 ; Pain in left toe(s) M79.675 ; Right foot pain M79.671 ; Plantar wart B07.0 and Xerosis of skin L85.[address] [address] 12/30/2023 Viky Yoder [facility] [address] 04/27/2024 Renaldo Bello Assessments Encounter Date Diagnosis (ICD Code) Assessment Notes Treatment Notes Treatment Clinical Notes Section Notes 09/23/2023 Tinea unguium (ICD-10 - B35.1) 01/16/2024 Tinea unguium (ICD-10 - B35.1) 01/16/2024 Pain in right toe(s) (ICD-10 - M79.674) 03/31/2024 Tinea unguium (ICD-10 - B35.1) 03/31/2024 Pain in right toe(s) (ICD-10 - M79.674) 06/15/2024 Tinea unguium (ICD-10 - B35.1) 06/15/2024 Pain in right toe(s) (ICD-10 - M79.674) 03/31/2024 Pain in left toe(s) (ICD-10 - M79.675) 01/16/2024 Pain in left toe(s) (ICD-10 - M79.675) 09/23/2023 Pain in right toe(s) (ICD-10 - M79.674) 09/23/2023 Pain in left toe(s) (ICD-10 - M79.675) 06/15/2024 Pain in left toe(s) (ICD-10 - M79.675) 01/16/2024 Xerosis cutis (ICD-10 - L85.3) Application of [place]-Soothe skin care lotion to the feet 06/15/2024 Right foot pain (ICD-10 - M79.671) 09/23/2023 Right foot pain (ICD-10 - M79.671) 09/23/2023 Plantar wart (ICD-10 - B07.0) 06/15/2024 Plantar wart (ICD-10 - B07.0) 06/15/2024 Xerosis of skin (ICD-10 - L85.3) 03/31/2024 Other Plan Of Treatment Pending Test Test Name Order Date X ray : Foot, right 3V 03/24/2013 60213-MIGQRMV NAIL, 6 OR MORE 01/16/2024 35437-NPVHGAC NAIL, 6 OR MORE 03/31/2024 79588, J0702- INJECT or DRAIN, JOINT/BUR SA 09/24/2017 52777, J0702- INJECT or DRAIN, JOINT/BUR SA 10/27/2019 86138, J0702- INJECT or DRAIN, JOINT/BUR SA 04/28/2021 67081, J0702- Neuroma/Injection 03/24/20 13 72796, J0702- Neuroma/Injection 12/25/19 14 Next Appt Details Provider Name:Viky wheeler, 08/20/2024 03:00:00 PM, [address] [place], [address], Insurance Providers Payer Name Payer Address Payer Phone Subscriber Number Group Number Insured Name Patient Relationship to Insured Coverage Start Date Coverage End Date Medicare [employer] [address] [facility] [place] [address] [id number] Argenis Nova Self - patient is the insured [facility] [address] [place] [address] [phone] [id number] Argenis Nova Self - patient is [...]
--- OUTSIDE RECORDS SUMMARY | 2024-07-21 14:29 | XMS_ITS ---
Author Organization [facility] Address [address] [place] [address] Care Team Providers Care Enterprise Engineer Name Role Phone Vikash Massey MD Primary Care Provider Unavail able Renaldo Bello Unavailable [phone] Encounters Encounter Location Date Provider Diagnosis [address] [address] 06/16/2024 Renaldo Bello Plan Of Treatment Next Appt Details Provider Name:Viky wheeler, 08/20/2024 03:00:00 PM, [address] [place] [address], [address], Progress Notes * Argenis DOWNS MDOB: [birth year] (83 yo F)Acc No.[id number]:06/16/2024 Progress Note Patient:?Argenis DOWNS Provider:?Renaldo Bello D.P.M. :1940???Age:83 Y???Sex:Female D ate:06/16/2024 Address:[address] [place] [address] Pcp:Vikash Massey MD Subjective: * Chief Complaints: * ??? * Medical History:? Objective: * Vitals:? Assessment: Plan: * Treatment: * Images: * The named appointment provid er may or may not be the originator of this progress note, and it is not deemed complete until electronically signed by the appointment provider. Sign off status: Pending * Provider:?Renaldo Bello D.P.M. Date:?07/2024 Generated for Maddie bradford/Oscar/Stephen on:?07/21/2024 02:29 PM EDT
--- OUTSIDE RECORDS SUMMARY | 2024-07-21 14:30 | XMS_ITS ---
Author Organization [facility] Address [address] [place] [address] Care Team Providers Care Knitting Machine Fixer Head Name Role Phone Shilpa THOMAS, Vikash Primary Care Provider Unavail able Renaldo Bello Unavailable [phone] REASON FOR VISIT rs 06/16/24 appt Encounters Encounter Location Date Provider Diagnosis [facility] [address] [address] 04/27/2024 Renaldo Bello Plan Of Treatment Next Appt Details Provider Name:Viky wheeler, 08/20/2024 03:00:00 PM, [address] [place] [address], [phone], Progress Notes * Argenis DOWNS MDOB: [birth year] (83 yo F)Acc No.[id number]:04/27/2024 Patient:?Argenis DOWNS :1940???Age:83 Y???Sex:Female Address:[address] [place] [address] * true * Date:? Generated for Printi sanchez/Oscar/eTransmitting on:?07/21/2024 02:29 PM EDT
--- OUTSIDE RECORDS SUMMARY | 2024-07-21 14:31 | XMS_ITS | Encounter Summary ---
Author Organization [facility] Address [address] [place] [address] Care Team Providers Care Freight Shipping Agent Name Role Phone Vikash Massey MD Primary Care Provider [phone] Reason for Visit * Episode Based Medications (Routine) - Authorized Specialty Diagnoses / Procedures Referred By Contac t Referred To Contact Diagnoses Multiple myeloma not having achieved remission (CMS/HCC) Chika Vee MD [address] [place] [address] Phone: tel: fax: [address] [address] Phone: tel: fax: Referral ID Status Reason Start Date Expiration Date V isits Requested Visits Authorized [id number] Authorized 01/21/2024 01/20/2025 1 77 Encounter Details Date Type Department Care Team (Latest Contact Info) Description 07/17/2024 10:41 AM EDT - 07/17/2024 11:59 PM EDT Hospital Encounter [address] [address] Chika Vee MD [address] [place] [address] Multiple myeloma not having achieved remission (CMS/HCC) (Primary Dx) Discharge Disposition: Home or Self Care Social History Tobacco Use Types Packs/Day Years [...] Sign Reading Time Taken Comments Blood Pressure 124/58 07/17/2024 10:57 AM EDT Pulse 87 07/17/2024 10:57 AM EDT Temperature 36.3 ??C (97.3 ??F) 07/17/2024 1 0:57 AM EDT Respiratory Rate 18 07/17/2024 10:5 7 AM EDT Oxygen Saturation 100% 07/17/2024 10: 57 AM EDT Inhaled Oxygen Concentration - - Weight 84.7 kg (186 lb 11.7 oz) 025 10:57 AM EDT Height - - Body Mass Index 31.56 01/17/2024 10:27 AM EDT documented in this encounter Medications at Time of Discharge cholecalciferol (VITAMIN D-3) 25 mcg (1,000 unit) capsule Take by mouth. dexAMETHasone (DECADRON) 4 mg tabletIndications:mu ltiple myeloma Take 2 tablets (8 mg total) by mouth. Once a month on week off of treatment 11/22/2023 famotidine (PEPCID) 20 mg tablet TAKE 1 TABLET BY MOUTH TWICE A DAY 180 tablet 07/02/2024 levothyroxine (SYNTHROID, LEVOTHROID) 50 mcg tablet TAKE 1 TAB DAILY & TAKE EXTRA PILL ON Saturday07/25/2021 ondansetron ODT (ZOFRAN-ODT) 4 mg disintegrating tablet Take 1 tablet (4 mg total) by mouth every 8 (eight) hours if needed for nausea or vomiting. 20 tablet 02/26/2024 simvastatin (ZOCOR) 10 mg tablet Take 2 tablets (20 mg total) by mouth. 09/06/2021 sodium bicarbonate 650 mg tablet Take 1 tablet (650 mg total) by mouth. 12/26/2022 valACYclovir (VALTREX) 500 mg tablet TAKE 1 TABLET (500 MG TOTAL) BY MOUTH DAILY. 90 tablet 1 04/20/2024 warfarin (COUMADIN) 5 mg tablet 6 mg. 10/03/2021 documented as of this encounter Discharge Disposition Disposition Code Departure Means Destination Home or Self Care documented in this encounter Progress Notes * Gissell Leos RN - 07/17/2024 11:00 AM EDT 1045 Argenis arrives ambulatory for ongoing treatment with velade. Today is day 8 of her cycle. She denies any changes, no reports of neuropathy. She does report painful knees and is due for arthritic injections next week. Labs are reviewed and within range for treatment. Snacks provided, premeds administered. Call milian in reach. 1200 velcade administered into right side of abdomen without incident. 1215 ate lunch and tolerated well 1230 discharged to home, next appointment provided. documented in this encounter Plan of Treatment Upcoming Encounters Date Type Department Care Team (Late st Contact Info) Description 08/14/2024 10:30 AM EDT Office Visit [facility] Hematology Oncology [address] [place] [phone] Chika Vee MD [address] [place] [address] documented as of this encounter Visit Diagnoses Diagnosis Multiple myeloma not having achieved remission (CMS/HCC)- Primary documented in this encounter Administered Medications Inactive Administered Medications - up to 3 most recent administrations Medication Order MAR Action Action Date Dose Rate Site bortezomib (VELCADE) chemo injection 2.475 mg 2.475 mg (rounded from 2.483 mg = 1.3 mg/m2 ? 1.91 m2), subcutaneous, Once, On Sat07/17/24 at 1115, For 1 dose, FOR SUBCUTANEOUS INJECTION. Bortezomib is an irritant. HAZARDOUS Drug Precautions - High Risk (Category C/NIOSH Group 1) Antineoplastic: - Double pair of ASTM standard D6978 certified chemotherapy gloves - Chemotherapy gown - Closed-System Transfer Device (CSTD) recommended - Eye protection (goggles or face shield) required only with a potential for facial contact (i.e. concern for spitting or vomiting of the dose during or after administration)Indication s:Multiple myeloma not having achieved remission (CMS/HCC) Given 07/17/2024 12:01 PM EDT 2.475 mg Right Lower Abdomen dexAMETHasone (DECADRON) tablet 8 mg 8 mg, oral, Once, On Sat07/17/24 at 1115, For 1 dose, Administer 30 minutes prior to chemotherapy.Indications: Multiple myeloma not having achieved remission (CMS/HCC) Given 07/17/2024 11:23 AM EDT 8 mg ondansetron ODT (ZOFRAN-ODT) disintegrating tablet 16 mg 16 mg, oral, Once, On Sat07/17/24 at 1115, For 1 doseIndications:Multiple myeloma not having achieved remission (CMS/HCC) Given 07/17/2024 11:23 AM EDT 16 mg documented in this encounter Care Teams Freight Shipping Agent Relationship Specialty Start Date End Date Vikash Massey MD [address] [place] [address] PCP - General Internal Medicine 06/27/20 documented as of this encounter
--- OUTSIDE RECORDS SUMMARY | 2024-07-21 14:31 | XMS_ITS | Encounter Summary ---
Author Organization [facility] Address [address] [place] [address] Care Team Providers Care Ui Engineer Name Role Phone Vikash Massey MD Primary Care Provider [phone] Encounter Details Date Type Department Care Team Description 10/06/2021 Social Work [facility] Oncology Services [address] [place] [address] Arturo Schaeffer [facility] Social History Tobacco Use Types Packs/Day Years Used Date Smoking Tobacco: Never Smokeless Tobacco: Never Alcohol Use Standard Drinks/Week Comments Yes 0 (1 standard drink = 0.6 oz pur e alcohol) socially Sex and Gender Information Value Date Recorded Sex Assigned at Female 10/02/2021 1:39 PM EDT Gender Identity Not on file Sexual Orientation Not on file Job Start Date Occupation Industry Not on file Not on file Not on file COVID-19 Exposure Response Date Recorded In the last 10 days, have yo u been in contact with someone who was confirmed or suspected to have Coronavirus/COVID-19? No / Unsure 10/06/2021 11:04 AM EDT documented as of this encounter Plan of Treatment Not on file documented as of this encounter Visit Diagnoses Not on filedocumented in this encounter Care Teams Ui Engineer Relationship Specialty Start Date End Date Vikash Massey MD [address] [address] PCP - General Internal Medicine 10/05/21 documented as of this encounter
--- OUTSIDE RECORDS SUMMARY | 2024-07-21 14:32 | XMS_ITS ---
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 PO DREW- [place] - OP CycloPHOSphamide (po) + OP Bortezomib + OP Dexamethasone + OP sc DREW* Plan Start Date:10/12/2021 Plan Provider:Chika Wyatt MD Linked Problems Multiple myeloma not having achieved remission (HCC) Treatment Medications Current Day (Day 1 , Cycle 31 - Planned for 02/14/2024) Next Day (Day 8, Cycle 31 - Planned for 02/21/2024) acetaminophen (TYLENOL)acyclovir (ZOVIRAX)albuterol (PROVENTIL)bortezomib (VELCADE)cyclophosphamide (CYTOXAN)daratumumab-hyalur onidase-fihjdexamethasone (DECADRON)dexamethasone (DECADRON) 40 mg in 50 mL sodium chloride (NS) 0.9 % IVPB (DECADRON)diphenhydrAMINE (BENADRYL)EPINEPHrineEPINEP Hrine (Anaphylaxis) (ADRENALIN)famotidine (PF) (PEPCID)hydrocortisone (SOLU-CORTEF) IVHydrocortisone Sod Suc (PF) (Solu-CORTEF)meperidine (DEMEROL) 25 MG/MLondansetron (ZOFRAN)ondansetron (ZOFRAN-ODT)ondansetron (ZOFRAN-ODT) 4 MGprochlorperazine (COMPAZINE)Saline Flush 0.9 %sodium chloride (NS) 0.9 %sodium chloride 0.9% bolus (NS) acetaminophen (TYLENOL) tablet 650 mgalbuterol (PROVENTIL) nebulizer solution 2.5 mgbortezomib (VELCADE) subcutaneous injection 2.6 mgdaratumumab-hyaluronidas e-fihj subcutaneous injection 1,800 mgdexamethasone (DECADRON) tablet 8 mgdiphenhydrAMINE (BENADRYL) capsule 25 mgdiphenhydrAMINE (BENADRYL) injection 50 mgEPINEPHrine (Anaphylaxis) (ADRENALIN) 1 mg/ml (1:1000) inj amp/vial 0.3 mgfamotidine (PEPCID) 20 mg in water for injection, sterile 5 mL Injectionhydrocortisone sodium succinate (Solu-CORTEF) injection (PF) 100 mgmeperidine (DEMEROL) 25 MG/ML injection 25 mgondansetron (ZOFRAN-ODT) disintegrating tablet 16 mgSaline Flush 0.9 % injection 1 Syringesodium chloride 0.9% (NS) infusionsodium chloride 0.9% bolus (NS) 500 mL albuterol (PROVENTIL) nebulizer solution 2.5 mgbortezomib (VELCADE) subcutaneous injection 2.6 mgdexamethasone (DECADRON) tablet 8 mgdiphenhydrAMINE (BENADRYL) injection 50 mgEPINEPHrine (Anaphylaxis) (ADRENALIN) 1 mg/ml (1:1000) inj amp/vial 0.3 mgfamotidine (PEPCID) 20 mg in water for injection, sterile 5 mL Injectionhydrocortisone sodium succinate (Solu-CORTEF) injection (PF) 100 mgmeperidine (DEMEROL) 25 MG/ML injection 25 mgondansetron (ZOFRAN-ODT) disintegrating tablet 16 mgSaline Flush 0.9 % injection 1 Syringesodium chloride 0.9% (NS) infusionsodium chloride 0.9% bolus (NS) 500 mL Past Plans ONCOLOGY INFUSION THERAPY Plan Name Start Date Discontinue Date Treatment Medications Discontinue Reason Plan Provider [facility] EPOETIN SANDRA-EPBX (RETACRIT, EPOGEN) & [facility] FERUMOXYTOL (FERAHEME) IRON REPLETION 3 03/05/2023 albuterol (PROVENTIL)diphenhydrAMI NE (BENADRYL)EPINEPHrineepo etin sandra (PROCRIT)famotidine (PF) (PEPCID)ferumoxytol (FERAHEME) infusionhydrocortisone (SOLU-CORTEF) IVmeperidine (DEMEROL) 25 MG/MLSaline Flush 0.9 %sodium chloride (NS) 0.9 %sodium chloride 0.9% bolus (NS) Change in Level of Care Chika Wyatt MD [facility] EPOETIN SANDRA-EPBX (RETACRIT, EPOGEN) 3 11/09/2022 epoetin alpha-epbx (RETACRIT) Remission Chika Wyatt MD [facility] EPOETIN SANDRA-EPBX (RETACRIT, EPOGEN) 2 04/13/2022 epoetin alpha-epbx (RETACRIT) Remission Chika Wyatt MD [facility] EPOETIN SANDRA (PROCRIT, EPOGEN) 2 12/07/2021 epoetin alpha (PROCRIT) Patient Preference Chika Wyatt MD ONCOLOGY TREATMENT Plan Name Start Date Discontinue Date Treatment Medications Discontinue Reason Plan Provider [facility] OP BORTEZOMIB WEEKLY (2 HRS) 2 10/09/2021 acyclovir (ZOVIRAX)borte zomib (VELCADE)cyclo phosphamide (CYTOXAN)dexam ethasone (DECADRON)Sali ne Flush 0.9 %sodium chloride (NS) 0.9 % Change in Level of Care Chika Wyatt MD 1 of 2 cycles started Radiation Treatments * No radiation treatments are documented for this patient in [facility]. Treatments may have been administered in another system. 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
--- OUTSIDE RECORDS SUMMARY | 2024-07-21 14:32 | XMS_ITS | Encounter Summary ---
Author Organization [facility] [place] [address] Care Team Providers Care Certified Medical Coder Name Role Phone Vikash Massey MD Primary Care Provider [phone] Encounter Details Date Type Department Care Team [...] Description 08/14/2024 10:30 AM EDT Office Visit [facility] Hematology Oncology [address] [place] [phone] Sarbjit-Chika Jackson MD [address] [place] [phone] documented as of this encounter Procedures Procedure Name Priority Date/Time Associated Diagnosis Comments ..MISCELLANEOUS REFERENCE LAB TEST 02/14/2024 documented in this encounter Results * Miscellaneous reference lab test (02/14/2024) us Provider Onbase LAB BLOOD ORDERABLES Final Re sult documented in this encounter Visit Diagnoses Diagnosis Multiple myeloma not having achieved remission (CMS/HCC) documented in this encounter Care Teams Certified Medical Coder Relationship Specialty Start Date End Date Vikash Massey MD [address] [place] [address] PCP - General Internal Medicine 06/27/20 documented as of this encounter
--- OUTSIDE RECORDS SUMMARY | 2024-07-21 14:32 | XMS_ITS | Clinical Summary ---
Author Organization [facility] Address [address] [place] [address] Care Team Providers Care Truck Despatcher Name Role Phone Vikash Massey MD Primary Care Provider [phone] Allergies Active Allergy Reactions Criticality Noted Date Comments Penicillins Rash Low 10/06/2021 Medications Medication Sig Dispensed Refills Start Date End Date Status levothyroxine (SYNTHROID) tablet 50 mcg TAKE 1 TAB DAILY & TAKE EXTRA PILL ON SATURDAY 0 07/25/2021 Active simvastatin (ZOCOR) tablet 10 mg Take 2 tablets (20 mg total) by mouth every night at bedtime. 0 09/06/2021 Active warfarin (COUMADIN) 5 MG tabletIndications:Th romboembolic Disease 6 mg. 0 10/03/2021 Acti ve sodium bicarbonate 650 MG tablet Take 1 tablet (650 mg total) by mouth 2 (two) times a day. 2 PILLS IN AM, 2 PILLS IN PM 0 12/26/2022 Active ondansetron (ZOFRAN-ODT) 4 MG disintegrating tablet Take 1 tablet (4 mg total) by mouth every 8 (eight) hours as needed for nausea. 20 tablet 11 01/04/2023 Active Cholecalciferol (Vitamin D3) 25 MCG (1000 UT) CAPS Take by mouth. 0 Active valACYclovir (VALTREX) 500 MG tablet TAKE 1 TABLET (500 MG TOTAL) BY MOUTH DAILY. 90 tablet 1 10/29/2023 Active famotidine (PEPCID) 20 MG tablet TAKE 1 TABLET BY MOUTH TWICE A DAY 180 tablet 0 10/29/2023 Active dexamethasone (DECADRON) 4 MG tablet Take 3 tablets (12 mg total) by mouth every morning with breakfast. 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 08/24/2022 09/28/2022 Other ascites 08/24/2022 08/24/2022 Family History Medical History Relation Name Comments Leukemia Brother Cancer Maternal Aunt breast Cancer Maternal Uncle lung Cancer Mother uterine Cancer Sister breast Relation Name Status Comments Brother Maternal Aunt Maternal Uncle Mother Sister Social History Tobacco Use Types Packs/Day Years [...] file Not on file Not on file Last Filed Vital Signs Vital Sign Reading Time Taken Comments Blood Pressure 119/67 02/14/2024 11:00 AM EDT Pulse 97 02/14/2024 11:00 AM EDT Temperature 36.9 ??C (98.4 ??F) 02/14/2024 11:00 AM E DT Respiratory Rate 20 01/03/2024 10:50 AM EDT Oxygen Saturation 99% 02/14/2024 11:00 AM EDT Inhaled Oxygen Concentration - - Weight 87.2 kg (192 lb 3.2 oz) 02/14/2024 11:00 AM EDT Height 163.8 cm (5' 4.5 ) 01/17/2024 10:27 AM ED T Body Mass Index 32.48 01/17/2024 10:27 AM EDT Plan of Treatment Health Maintenance Due Date Last Done Comments COVID-19 Vaccine (#1) 11/06/1945 Depression Screening 1954 BMI Counseling 1960 Preventative Health Evaluation 1960 DTap / Tdap / Td (1 - Tdap) 1961 Shingrix-Zoster Vaccine (1 of 2) 1961 Fall Risk Assessment 11/06/2007 Osteoporosis Screening (DEXA Scan) 11/06/2007 RSV Adult > 60+ Yrs or (1 - 1-dose 75+ series) 2017 Pneumococcal Vaccine (2 of 2 - PCV) 01/30/2019 01/30/2018 Influenza Vaccine (#1) 2023 2, 01/04/2021, 12/22/2019, Additional history exists Hepatitis B Vaccines Completed 08/18/2022, 06/16/2022, 01/23/2022, Additional history exists RSV Ped < 20 months Aged Out No longe r eligible based on patient's age to complete this topic Care Teams Truck Despatcher Relationship Specialty Start Date End Date Vikash Massey MD [address] [address] PCP - General Internal Medicine 10/05/21
--- OUTSIDE RECORDS SUMMARY | 2024-07-21 14:32 | XMS_ITS | Encounter Summary ---
Author Organization [facility] Address [address] [place] [address] Care Team Providers Care Apartment Leasing Agent Name Role Phone Vikash Massey MD Primary Care Provider [phone] Encounter Details Date Type Department Care Team [...] 08/14/2024 10:30 AM EDT Office Visit [facility] Hematology Oncology [address] [place] [phone] Sarbjit-Chika Jackson MD [address] [place] [phone] documented as of this encounter Procedures Procedure [...] (CMS/HCC) documented in this encounter Care Teams Apartment Leasing Agent Relationship Specialty Start Date End Date Vikash Massey MD [address] [place] [address] PCP - General Internal Medicine 06/27/20 documented as of this encounter
--- OUTSIDE RECORDS SUMMARY | 2024-07-21 14:32 | XMS_ITS | Encounter Summary ---
Author Organization [facility] [place] [address] Care Team Providers Care Robot Programmer Name Role Phone Vikash Massey MD Primary Care Provider [phone] Encounter Details Date Type Department Care Team [...] Description 08/14/2024 10:30 AM EDT Office Visit [facility] Hematology Oncology [address] [place] [phone] Chika Vee MD [address] [place] [phone] documented as of this encounter Procedures Procedure Name Priority Date/Time Associated Diagnosis Comments ..MISCELLANEOUS REFERENCE LAB TEST 01/31/2024 documented in this encounter Results * Miscellaneous reference lab test (01/31/2024) us Provider Onbase LAB BLOOD ORDERABLES Final Re sult documented in this encounter Visit Diagnoses Diagnosis Multiple myeloma not having achieved remission (CMS/HCC) documented in this encounter Care Teams Robot Programmer Relationship Specialty Start Date End Date Vikash Massey MD [address] [place] [address] PCP - General Internal Medicine 06/27/20 documented as of this encounter
--- OUTSIDE RECORDS SUMMARY | 2024-07-21 14:33 | XMS_ITS ---
Author Organization [facility] Address [address] [place] [phone] Phone Care Team Providers Care Entry Level Civil Engineer Name Role Phone Vikash Massey MD Primary Care Provider [phone] Active Problems Problem Noted Date Diagnosed Date COVID-19 04/03/2024 Hypogammaglobulinemia 04/03/2024 Iron deficiency anemia 04/19/2023 Primary osteoarthritis of left knee 05/11/2022 Acute deep vein thrombosis ( DVT) of femoral vein of left lower extremity 04/13/2022 Chemotherapy induced neutropenia 03/04/2022 Acute renal failure 10/20/2021 Anemia in neoplastic disease 10/20/2021 Hypokalemia 10/20/2021 Pulmonary embolus 10/20/2021 Light chain disease, 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 Multiple myeloma not having achieved remission 0 10/03/2021 Current Oncology Plans Bortezomib / DexAMETHasone + Daratumumab and hyaluronidase-fihj ( or Daratumumab IV )* Plan Start Date:10/12/2021 Plan Provider:Chika Vee MD Linked Problems Multiple myeloma not having achieved remission ([facility]) Treatment Medications Current Day (Day 1 5, Cycle 16 - Planned for 07/24/2024) Next Day (Day 1, Cycle 17 - Planned for 08/07/2024) bortezomib (VELCADE)daratumumab-hyaluron idase-fihj (DARZALEX FASPRO) bortezomib (VELCADE) chemo injection 2.475 mg bortezomib (VELCADE) chemo injectiondaratumumab-hyaluro nidase-fihj (DARZALEX FASPRO) injection 1,800 mg Immune Globulin Intravenous (IGIV) - every 4 weeks* Plan Start Date:04/03/2024 Plan Provider:Chika Vee MD Linked Problems Multiple myeloma not having achieved remission (CMS/HCC)Hypogammaglobulinemia (CMS/HCC) Treatment Medications No medications scheduled. Past Plans No past plan information found. Radiation Treatments * No radiation treatments are documented for this patient in [facility]. Treatments may have been administered in another system.
--- OUTSIDE RECORDS SUMMARY | 2024-07-21 14:33 | XMS_ITS | Clinical Summary ---
Author Organization [facility] Address [address] [place] [address] Phone Care Team Providers Care Water Reuse Program Manager Name Role Phone Vikash Massey MD Primary Care Provider [phone] Allergies Active Allergy Reactions Criticality Noted Date Comments Penicillins Rash Low 10/06/2021 Medications cholecalciferol (VITAMIN D-3) 25 mcg (1,000 unit) capsule Take by mouth. Active dexAMETHasone (DECADRON) 4 mg tabletIndications :multiple myeloma Take 2 tablets (8 mg total) by mouth. Once a month on week off of treatment 11/22/19 24 Active levothyroxine (SYNTHROID, LEVOTHROID) 50 mcg tablet TAKE 1 TAB DAILY & TAKE EXTRA PILL ON Saturday07/26/19 22 Active simvastatin (ZOCOR) 10 mg tablet Take 2 tablets (20 mg total) by mouth. 09/07/19 22 Active sodium bicarbonate 650 mg tablet Take 1 tablet (650 mg total) by mouth. 12/27/19 23 Active warfarin (COUMADIN) 5 mg tablet 6 mg. 10/04/19 22 Active ondansetron ODT (ZOFRAN-ODT) 4 mg disintegrating tablet Take 1 tablet (4 mg total) by mouth every 8 (eight) hours if needed for nausea or vomiting. 20 tablet 02/26/20 24 Active valACYclovir (VALTREX) 500 mg tablet TAKE 1 TABLET (500 MG TOTAL) BY MOUTH DAILY. 90 tablet 1 04/20/19 25 Active famotidine (PEPCID) 20 mg tablet TAKE 1 TABLET BY MOUTH TWICE A DAY 180 tablet 07/03/19 25 Active famotidine (PEPCID) 20 mg tablet TAKE 1 TABLET BY MOUTH TWICE A DAY 180 tablet 03/30/20 24 025 Discontinued Active Problems Problem Noted Date Diagnosed Date [...] myeloma not having achieved remission 0 10/03/2021 Encounters Date Type Department Care Team Description 07/17/2024 10:41 AM EDT - 07/17/2024 11:59 PM EDT Hospital Encounter [facility] [address] [place] [phone] Franciscoramonia-Iy Chika victor MD Multiple myeloma not having achieved remission (CMS/HCC) (Primary Dx) Discharge Disposition: Home or Self Care 07/10/2024 10:41 AM EDT - 07/10/2024 11:59 PM EDT Hospital Encounter [facility] [address] [place] [phone] Johnyonia-Iy Chika victor MD Multiple myeloma not having achieved remission (CMS/HCC) (Primary Dx) Discharge Disposition: Home or Self Care 06/26/2024 10:44 AM EDT - 06/26/2024 11:59 PM EDT Hospital Encounter [facility] [address] [place] [phone] Franciscoramonia-Iy Chika victor MD Multiple myeloma not having achieved remission (CMS/HCC) (Primary Dx); Hypogammaglobulinemi a (CMS/HCC) Discharge Disposition: Home or Self Care 06/19/2024 10:42 AM EST - 06/19/2024 11:59 PM EST Hospital Encounter [facility] [address] [place] [phone] Franciscoramonia-Iy Chika victor MD Multiple myeloma not having achieved remission (CMS/HCC) (Primary Dx) Discharge Disposition: Home or Self Care 06/12/2024 11:00 AM EST - 06/12/2024 11:59 PM EST Hospital Encounter [facility] [address] [place] [phone] Franciscoramonia-Iy Chika victor MD Multiple myeloma not having achieved remission (CMS/HCC) (Primary Dx) Discharge Disposition: Home or Self Care 06/12/2024 10:30 AM EST Office Visit [facility] [address] [place] [phone] Johnyonia-Iy Chika victor MD Multiple myeloma not having achieved remission (CMS/HCC) (Primary Dx); Light chain glomerulopathy; Acute renal failure, unspecified acute renal failure type (CMS/HCC); Acute deep vein thrombosis (DVT) of femoral vein of left lower extremity (CMS/HCC); Hypogammaglobulinemi a (CMS/HCC) 05/29/2024 10:33 AM EST - 05/29/2024 11:59 PM EST Hospital Encounter [facility] [address] [place] [phone] Subramonia-Iy Chika victor MD Multiple myeloma not having achieved remission (CMS/HCC) (Primary Dx); Hypogammaglobulinemi a (CMS/HCC) Discharge Disposition: Home or Self Care 05/22/2024 10:32 AM EST - 05/22/2024 11:59 PM EST Hospital Encounter [facility] [address] [place] [phone] Franciscoramonia-Iy Chika victor MD Multiple myeloma not having achieved remission (CMS/HCC) (Primary Dx) Discharge Disposition: Home or Self Care 05/15/2024 10:32 AM EST - 05/15/2024 11:59 PM EST Hospital Encounter [facility] [address] [place] [phone] Johnyonia-Iy Chika victor MD Multiple myeloma not having achieved remission (CMS/HCC) (Primary Dx) Discharge Disposition: Home or Self Care 05/01/2024 10:50 AM EST - 05/01/2024 11:59 PM EST Hospital Encounter [facility] [address] [place] [phone] Johnyonia-Iy Chika victor MD Multiple myeloma not having achieved remission (CMS/HCC) (Primary Dx); Hypogammaglobulinemi a (CMS/HCC) Discharge Disposition: Home or Self Care 04/24/2024 10:43 AM EST - 04/24/2024 11:59 PM EST Hospital Encounter [facility] [address] [place] [phone] Sarbjit-Iy Chika victor MD Multiple myeloma not having achieved remission (CMS/HCC) (Primary Dx) Discharge Disposition: Home or Self Care from Last 3 Months Immunizations Name Administration Dates Next Due Hepatitis B (Recombivax HB-D ialysis) 18yo and older 08/18/2022,06/16/2022,01/23/2022,12/23,11/21/2021 Influenza Quadravalent, 0.5m l (Fluad) 65yo and older 12/22/2019 Influenza Quadravalent, 0.5m l (Fluzone High-dose) 65yo and older 01/03/2022,01/04/2021,01/20/2019 Influenza trivalent, 0.5mL ( Fluad) 65yo and older 01/30/2018 Pneumococcal polysaccharide 23 valent (Pneumovax 23) 2yo and older 01/30/2018 Surgical History Surgery Date Site/Laterality Comments BREAST LUMPECTOMY PROCEDURE:BREAST LUMPECTOMY CATARACT EXTRACTION, BILATERAL PROCEDURE:CATARACT EXTRACTION, BILATERAL Medical History Medical History Date Comments Breast cancer DX:Breast cancer (HCC) Disease of thyroid gland DX:Dise ase of thyroid gland History of DVT (deep vein thrombosis) DX:History of DVT (deep vein thrombosis) Family History Medical History Relation Name Comments Leukemia Brother Cancer Mother uterine Cancer Mother's Brother lung Cancer Mother's Sister breast Cancer Sister breast Relation Name Status Comments Brother Mother Mother's Brother Mother's Sister Sister Social History Tobacco Use Types Packs/Day Years Used Date Smoking Tobacco: Never Smokeless Tobacco: Never Tobacco Cessation:Counseling Given: Not Answered Alcohol Use Standard Drinks/Week Comments Yes 0 (1 standard drink = 0.6 oz pur e alcohol) Comments No Sex and Gender Information Value Date Recorded Sex Assigned at Female 04/24/2024 10:42 AM EST Legal Sex Female 11:14 AM EST Gender Identity Female 04/24/2024 10:42 AM EST Sexual Orientation Straight 04/24/2024 10 :43 AM EST Obstetrics History Last Filed Vital Signs Vital Sign Reading [...] 11.7 oz) 025 10:57 AM EDT Height 163.8 cm (5' 4.5 ) 01/17/2024 10 :27 AM EDT Body Mass Index 31.56 01/17/2024 10:27 AM EDT Plan of Treatment Upcoming Encounters Date Type Department Care Team (Late st Contact Info) Description 08/14/2024 10:30 AM EDT Office Visit [facility] [address] [place] [phone] Sarbjit-Chika Jackson MD [address] [place] [phone] Health Maintenance Due Date Last Done Comments DTaP,Tdap,and Td Vaccines (1 - Tdap) 1959 Cholesterol Screening (Lipid Panel) 03/19/2022 Depression Screening 03/19/2022 Osteoporosis Screening (Bone Density Screening) 03/19/2022 Social Influencers of Health Screening 03/19/2022 Medicare Annual Wellness Visit 04/26/2023 04/26/2022 Hypertension/CHF/CAD Annual BMP Blood Test 06/26/2025 06/26/2024, 04/24/2024 Falls Risk Assessment 07/17/2025 07/17/2024 Pneumococcal Vaccine: 50+ Years Completed 01/30/2018, 02/22/2016 Zoster Vaccines Completed 04/28/2019, 01/29/2019 Hepatitis B Vaccines Completed 08/18/2022, 06/16/2022, 01/23/2022, Additional history exists RSV Immunization Adult Patients Completed 02/17/2023 COVID-19 Vaccine Completed 05/14/2024, 06/2022, 02/21/2022, Additional history exists Influenza Vaccine Completed 05/14/2024, , 01/03/2022, Additional history exists HIB Vaccines Aged Out No longer eligi ble based on patient's age to complete this topic HPV Vaccines Aged Out No longer eligi ble based on patient's age to complete this topic Hepatitis A Vaccines Aged Out No long er eligible based on patient's age to complete this topic IPV Vaccines Aged Out No longer eligi ble based on patient's age to complete this topic MMR Vaccines Aged Out No longer eligi ble based on patient's age to complete this topic Meningococcal ACWY Vaccine Aged Out N o longer eligible based on patient's age to complete this topic Meningococcal B Vaccine Aged Out No l onger eligible based on patient's age to complete this topic RSV Immunization Patients Under 20 months Aged Out No longer eligible based on patient's age to complete this topic Varicella Vaccines Aged Out No longer eligible based on patient's age to complete this topic Procedures Procedure Name Priority Date/Time Associated Diagnosis Comments NM PROTEIN ELECTROPHORETIC FRACTIONATION & QUANTITATION SERUM Routine 06/26/2024 11:18 AM EDT Multiple myeloma not having achieved remission (CMS/HCC) PROTEIN, TOTAL Routine 06/26/2024 11:18 AM EDT Multiple myeloma not having achieved remission (CMS/HCC) COMPREHENSIVE METABOLIC PANEL STAT 06/26/2024 11:18 AM EDT Multiple myeloma not having achieved remission (CMS/HCC) IMMUNOGLOBULIN IGG Routine 06/26/2024 11 :18 AM EDT Multiple myeloma not having achieved remission (CMS/HCC) KAPPA-LAMBDA QUANTITATIVE FREE LIGHT CHAINS Routine 06/26/2024 11:18 AM EDT Multiple myeloma not having achieved remission (CMS/HCC) PROTEIN ELECTROPHORESIS, SERUM Routine 06/26/2024 11:18 AM EDT Multiple myeloma not having achieved remission (CMS/HCC) CBC WITH AUTO DIFFERENTIAL Routine 04/24/2024 11:17 AM EST Multiple myeloma not having achieved remission (CMS/HCC) COMPREHENSIVE METABOLIC PANEL Routine 04/24/2024 11:17 AM EST Multiple myeloma not having achieved remission (CMS/HCC) CBC AND DIFFERENTIAL Routine 04/24/2024 11:17 AM EST Multiple myeloma not having achieved remission (CMS/HCC) from Last 3 Months Results * PATHOLOGIST REVIEW PROTEIN ELECTROPHORESIS (06/26/2024 11:18 AM EDT) Pathologist Interpretation Lily Pedroza MD 06/30/2024 8:56 AM EDT [facility] Blood Venous blood specimen / Unknown Venipuncture / Unknown 06/26/2024 11:18 AM EDT 06/26/2024 12:06 PM EDT us Subramony Mariusz THOMAS LAB BLOOD ORDERABLE S Final Result [facility] [address] [place] [address], * (ABNORMAL) Stites-lambda free light chains, quantitative (06/26/2024 11:18 AM EDT) Stites Free Light Chain 4.80(H) 0.33 - 1.94 mg/dL 06/29/2024 2:38 PM EDT [facility] Lambda Free Light Chain 0.35(L) 0.57 - 2.63 mg/dL 06/29/2024 2:38 PM EDT [facility] Stites/Lambda FLC Ratio 13.71(H) 0.26 - 1.65 06/29/2024 2:38 PM EDT [facility] Comment: Test performed at [facility], [address], [place], [place] ??[address] ? [phone] Minerva Acevedo MD, PhD - [employer] Blood Venous blood specimen / Unknown Venipuncture / Unknown 06/26/2024 11:18 AM EDT 06/26/2024 12:06 PM EDT Subramony Mariusz THOMAS LAB BLOOD ORDERABLE S Final Result [facility] [address] [place] [address] * Protein electrophoresis, serum (06/26/2024 11:18 AM EDT) Total Protein 6.3 6.0 - 8.0 g/dL LAB CHEMISTRY METHOD 06/30/2024 8:56 AM EDT [facility] Albumin, Serum 3.6 2.9 - 4.1 g/dL LAB CHEMISTRY METHOD 06/30/2024 8:56 AM EDT [facility] Alpha 1 Globulin (g/dL) 0.2 0.1 - 0.5 g/dL LAB CHEMISTRY METHOD 06/30/2024 8:56 AM EDT [facility] Alpha 2 Globulin (g/dL) 1.0 0.7 - 1.5 g/dL LAB CHEMISTRY METHOD 06/30/2024 8:56 AM EDT [facility] Beta (g/dL) 0.8 0.7 - 1.5 g/dL LAB CHEMISTRY METHOD 06/30/2024 8:56 AM EDT [facility] Gamma Globulin (g/dL) 0.7 0.7 - 1.9 g/dL LAB CHEMISTRY METHOD 06/30/2024 8:56 AM EDT [facility] SPEP Interpretation No M-Mckinley seen. Essentially normal pattern. LAB CHEMISTRY METHOD 06/30/2024 8:56 AM EDT [facility] Blood Venous blood specimen / Unknown Venipuncture / Unknown 06/26/2024 11:18 AM EDT 06/26/2024 12:06 PM EDT us Cihka Vee MD LAB BLOOD ORDERABLE S Final Result Performing Organization Address [facility]/ZIP Co de Phone Number [facility] [address] [place] [address], [place] [phone] * Protein, total (06/26/2024 11:18 AM EDT) Total Protein 6.3 6.0 - 8.0 g/dL LAB CHEMISTRY METHOD 06/26/2024 12:38 PM EDT [facility] Blood Venous blood specimen / Unknown Venipuncture / Unknown 06/26/2024 11:18 AM EDT 06/26/2024 12:06 PM EDT us Chika Vee MD LAB BLOOD ORDERABLE S Final Result Performing Organization Address City/[facility]/ZIP Co de Phone Number [facility] [address] [place] [address], [place] [phone] * Immunoglobulin IgG (06/26/2024 11:18 AM EDT) Total IgG 801 549 - 1,584 mg/dL LAB CHEMISTRY METHOD 06/26/2024 12:52 PM EDT [facility] Blood Venous blood specimen / Unknown Venipuncture / Unknown 06/26/2024 11:18 AM EDT 06/26/2024 12:06 PM EDT Chika Vee MD LAB BLOOD ORDERABLE S Final Result [facility] [address] [place] [address], * (ABNORMAL) Comprehensive metabolic panel (06/26/2024 11:18 AM EDT) Only the most recent of2 resultswithin the time period is included. Sodium 140 133 - 145 mmol/L LAB CHEMISTRY METHOD 06/26/2024 12:52 PM T [facility] Potassium 5.0 3.5 - 5.5 mmol/L LAB CHEMISTRY METHOD 06/26/2024 12:52 PM [facility] Comment:Hemolysis present Chloride 112(H) 96 - 110 mmol/L LAB CHEMISTRY METHOD 06/26/2024 12:52 PM [facility] CO2 23 21 - 32 mmol/L LAB CHEMISTRY METHOD 06/26/2024 12:52 PM [facility] Anion Gap 5 3 - 11 LAB CHEMISTRY METHOD 06/26/2024 12:52 PM [facility] Glucose 87 70 - 100 mg/dL LAB CHEMISTRY METHOD 06/26/2024 12:52 PM [facility] BUN 50(H) 5 - 25 mg/dL LAB CHEMISTRY METHOD 06/26/2024 12:52 PM [facility] Creatinine 2.41(H) 0.50 - 1.10 mg/dL LAB CHEMISTRY METHOD 06/26/2024 12:52 PM [facility] eGFR 20(L) >=60 mL/min/1. 73m2 LAB CHEMISTRY METHOD 06/26/2024 12:52 PM [facility] Comment:Calculation based on the??Chronic Kidney Disease Epidemiology Collaboration (CKD-EPI) equation refit??without adjustment for race. BUN/Creatinine Ratio 20.7 LAB CHEMISTRY METHOD 06/26/2024 12:52 PM EDT [facility] Calcium 9.4 8.5 - 10.5 mg/dL LAB CHEMISTRY METHOD 06/26/2024 12:52 [facility] AST (SGOT) 29 10 - 42 unit/L LAB CHEMISTRY METHOD 06/26/2024 12:52 PM [facility] ALT (SGPT) 25 10 - 60 unit/L LAB CHEMISTRY METHOD 06/26/2024 12:52 PM EDT [facility] Alkaline Phosphatase 102 42 - 121 unit/L LAB CHEMISTRY METHOD 06/26/2024 12:52 PM T [facility] Total Protein 6.5 6.0 - 8.0 g/dL LAB CHEMISTRY METHOD 06/26/2024 12:52 PM [facility] Albumin 3.6 3.2 - 5.0 g/dL LAB CHEMISTRY METHOD 06/26/2024 12:52 PM [facility] Total Bilirubin 0.3 0.0 - 1.4 mg/dL LAB CHEMISTRY METHOD 06/26/2024 12:52 PM [facility] Blood Venous blood specimen / Unknown Venipuncture / Unknown 06/26/2024 11:18 AM EDT 06/26/2024 12:06 PM EDT us Subramava Vee MD LAB BLOOD ORDERABLE S Final Result [facility] [address] [place] [address], * (ABNORMAL) CBC auto differential (04/24/2024 11:17 AM EST) WBC 9.2 4.8 - 10.8 K/mcL LAB HEMETOLOGY METHOD 04/24/2024 11:30 AM EST [facility] RBC 3.30(L) 3.80 - 4.80 M/mcL LAB HEMETOLOGY METHOD 04/24/2024 11:30 AM [facility] Hemoglobin 11.4(L) 11.5 - 16.0 g/dL LAB HEMETOLOGY METHOD 04/24/2024 11:30 AM [facility] Hematocrit 35.5 35.0 - 47.0 % LAB HEMETOLOGY METHOD 04/24/2024 11:30 AM [facility] MCV 108.2(H) 79.0 - 98.0 FL LAB HEMETOLOGY METHOD 04/24/2024 11:30 AM [facility] MCH 34.8(H) 27.0 - 32.0 pcg LAB HEMETOLOGY METHOD 04/24/2024 11:30 AM [facility] MCHC 32.1 32.0 - 37.0 g/dL LAB HEMETOLOGY METHOD 04/24/2024 11:30 AM [facility] RDW 12.4 11.0 - 15.0 % LAB HEMETOLOGY METHOD 04/24/2024 11:30 AM [facility] Platelets 185 130 - 400 K/mcL LAB HEMETOLOGY METHOD 04/24/2024 11:30 AM [facility] MPV 10.7 7.0 - 11.0 FL LAB HEMETOLOGY METHOD 04/24/2024 11:30 AM [facility] NRBC 0.0 <1.0 % LAB HEMETOLOGY METHOD 04/24/2024 11:30 AM [facility] NRBC Absolute 0.00 <0.10 K/mcL LAB HEMETOLOGY METHOD 04/24/2024 11:30 AM [facility] Neutrophils Relative 88.9 % LAB HEMETOLOGY METHOD 04/24/2024 11:30 AM [facility] Lymphocytes Relative 3.3 % LAB HEMETOLOGY METHOD 04/24/2024 11:30 AM EST [facility] Monocytes Relative 5.4 % LAB HEMETOLOGY METHOD 04/24/2024 11:30 AM [facility] Eosinophils Relative 1.6 % LAB HEMETOLOGY METHOD 04/24/2024 11:30 AM [facility] Basophils Relative 0.5 % LAB HEMETOLOGY METHOD 04/24/2024 11:30 AM [facility] Immature Granulocytes Relative 0.3 % LAB HEMETOLOGY METHOD 04/24/2024 11:30 AM [facility] Neutrophils Absolute 8.18(H) 1.50 - 7.00 K/mcL LAB HEMETOLOGY METHOD 04/24/2024 11:30 AM [facility] Lymphocytes Absolute 0.30(L) 1.00 - 5.00 K/mcL LAB HEMETOLOGY METHOD 04/24/2024 11:30 AM [facility] Monocytes Absolute 0.50 0.20 - 1.00 K/mcL LAB HEMETOLOGY METHOD 04/24/2024 11:30 AM [facility] Eosinophils Absolute 0.15 0.00 - 0.50 K/mcL LAB HEMETOLOGY METHOD 04/24/2024 11:30 AM [facility] Basophils Absolute 0.05 0.00 - 0.20 K/mcL LAB HEMETOLOGY METHOD 04/24/2024 11:30 AM [facility] Immature Granulocytes Absolute 0.03 0.00 - 0.03 K/mcL LAB HEMETOLOGY METHOD 04/24/2024 11:30 AM [facility] Blood Venous blood specimen / Unknown Venipuncture / Unknown 04/24/2024 11:17 AM EST 04/24/2024 11:22 AM EST us Subramony Mariusz THOMAS LAB BLOOD ORDERABLE S Final Result [facility] [address] [place] [address], from Last 3 Months Insurance MEDICARE [facility] Care Teams Water Reuse Program Manager Relationship Specialty Start Date End Date Vikash Massey MD [address] [place] [address] PCP - General Internal Medicine 06/27/20
--- OUTSIDE RECORDS SUMMARY | 2024-07-21 14:33 | XMS_ITS | Clinical Summary ---
Author Organization [facility] Facility Address [address] [address] Care Team Providers Care Valet Service Attendant Name Role Phone Vikash Massey MD Primary Care Provider Unavail able Allergies Active Allergy Reactions Criticality Noted Date Comments Penicillins Rash Low 10/06/2021 Medications famotidine (PEPCID) 20 MG tablet Take 20 mg by mouth in the morning and 20 mg in the evening. 10/06/2021 Active levothyroxine (SYNTHROID, LEVOTHROID) 50 MCG tablet TAKE 1 TAB DAILY & TAKE EXTRA PILL ON Saturday10/21/2021 Active valACYclovir (VALTREX) 500 MG tablet TAKE 1 TABLET (500 MG TOTAL) BY MOUTH DAILY. 10/20/2021 Active warfarin (COUMADIN) 3 MG tablet 10/03/2021 Active simvastatin (ZOCOR) 20 MG tablet Take 20 mg by mouth 1 (one) time each day in the evening 09/06/2021 Active sodium bicarbonate 650 MG tablet Take 650 mg by mouth in the morning and 650 mg in the evening. 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 Acute nontraumatic kidney injury 10/11/2021 Localized edema 09/14/2021 Hypertensive chronic kidney disease with stage 1 through stage 4 chronic kidney disease, or unspecified chronic kidney disease 12/15/2019 Essential (primary) hypertension 05/12/2018 Resolved Problems Problem Noted Date Diagnosed Date Resolved Date Primary osteoarthritis of left knee 05/11/202211/2811/28/2022 Acute deep venous thrombosis of left femoral vein 04/13/2022 11/28/2022 11/28/2022 Neutropenia due to and following chemotherapy 03/04/2011/28/2022 11/28/2022 Pulmonary embolism 10/20/2021 [place] light chain disease 10/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 Multiple myeloma not having achieved remission 10/03/2021 11/28/2022 Nausea 09/14/2021 11/28/2022 Other fatigue 09/14/2021 11/28/2022 Pain in left ankle and joint of left foot 07/14/2020 11/28/2022 Encounter for screening for depression 03/14/2020 11/28/2022 Benign paroxysmal vertigo, unspecified ear 05/18/2019 11/28/2022 Age-related cataract 02/23/2019 023 Encounter for other preprocedural examination 02/24/2011/28/2022 Body mass index (BMI) 31.0-31.9, adult 05/12/2018 11/28/2022 Unspecified sensorineural hearing loss 05/12/2018 11/28/2022 Encounter for general adult medical examination without abnormal finding 01/08/2018 Hyperglycemia 01/08/2018 11/28/2022 Hyperlipidemia 09/12/2017 11/28/2022 Hypothyroidism 09/12/2017 11/28/2022 Osteoarthritis 09/12/2017 11/28/2022 Family History Medical History Relation Comments Cancer Brother Heart disease Father Cancer Mother Cancer Sister Relation Status Comments Brother Father Mother Sister Social History Tobacco Use Types Packs/Day Years Used Date Smoking Tobacco: Never Smokeless Tobacco: Never Tobacco Cessation:Counseling Given: Not Answered Alcohol Use Standard Drinks/Week Comments Never 0 (1 standard drink = 0.6 oz pur e alcohol) Comments Unknown Sex and Gender Information Value Date Recorded Sex Assigned at Not on file Legal Sex Female 8:21 AM EDT Gender Identity Not on file Sexual Orientation Not on file Last Filed Vital Signs Vital Sign Reading Time Taken Comments Blood Pressure 150/90 11/29/2022 3:40 PM EDT Pulse 95 11/29/2022 3:40 PM EDT Temperature - - Respiratory Rate - - Oxygen Saturation 100% 10/01/2022 2:12 PM EDT Inhaled Oxygen Concentration - - Weight 91.2 kg (201 lb) 11/29/2022 3:40 PM EDT Height 165.1 cm (5' 5 ) 10/01/2022 2:12 PM EDT Body Mass Index 33.45 10/01/2022 2:12 PM EDT Plan of Treatment Health Maintenance Due Date Last Done Comments Pneumococcal Vaccine: 65+ Ye ars (1 of 2 - PCV) 1946 Influenza Vaccine (Season Ended) 2024 Hepatitis B Vaccine Aged Out No longe r eligible based on patient's age to complete this topic Insurance MEDICARE [facility] MEDICARE [facility] Care Teams Valet Service Attendant Relationship Specialty Start Date End Date Vikash Massey MD [address] [phone] PCP - General Internal Medicine 11/29/22
--- OUTSIDE RECORDS SUMMARY | 2024-07-21 14:34 | XMS_ITS | Encounter Summary ---
Author Organization [facility] [place] [address] Care Team Providers Care Crop Insurance Claims Adjuster Name Role Phone Vikash Massey MD Primary Care Provider Encounter Details Date Type Department Care Team (Latest Contact Info) Description 10/04/2023 11:00 AM EDT Hospital Encounter TH HISTORIC ENCOUNTERS EASTERN CONVERSION ONLY Multiple myeloma not having achieved remission (CMS/HCC); Other iron deficiency anemias; Acute kidney failure, unspecified (CMS/HCC); Anemia in neoplastic disease Social History Tobacco [...] Description 08/14/2024 10:30 AM EDT Office Visit [facility] Hematology Oncology [address] [place] [address] Sarbjit-Chika Jackson MD [address] [place] [address] documented as of this encounter Procedures Procedure Name Priority Date/Time Associated Diagnosis Comments ..MISCELLANEOUS REFERENCE LAB TEST 10/04/2023 documented in this encounter Results * Miscellaneous reference lab test (10/04/2023) us Provider Onbase LAB BLOOD ORDERABLES Final Re sult documented in this encounter Visit Diagnoses Diagnosis Multiple myeloma not having achieved remission (CMS/HCC) Other iron deficiency anemias Acute kidney failure, unspecified (CMS/HCC) Acute kidney failure, unspecified Anemia in neoplastic disease documented in this encounter Care Teams Crop Insurance Claims Adjuster Relationship Specialty Start Date End Date Vikash Massey MD [address] [place] [address] PCP - General Internal Medicine 06/27/20 documented as of this encounter
--- OUTSIDE RECORDS SUMMARY | 2024-07-21 14:34 | XMS_ITS | Encounter Summary ---
Author Organization [facility] [place] [address] Care Team Providers Care Wind Energy Systems Installer Name Role Phone Vikash Massey MD Primary Care Provider [phone] Encounter Details Date Type Department Care Team [...] Description 08/14/2024 10:30 AM EDT Office Visit [facility] Hematology Oncology [address] [place] [phone] Sarbjit-Chika Jackson MD [address] [place] [phone] documented as of this encounter Procedures Procedure Name Priority Date/Time Associated Diagnosis Comments ..MISCELLANEOUS REFERENCE LAB TEST 10/11/2023 documented in this encounter Results * Miscellaneous reference lab test (10/11/2023) us Provider Onbase LAB BLOOD ORDERABLES Final Re sult documented in this encounter Visit Diagnoses Diagnosis Multiple myeloma not having achieved remission (CMS/[facility]) Other iron deficiency anemias Acute kidney failure, unspecified (CMS/HCC) Acute kidney failure, unspecified Anemia in neoplastic disease documented in this encounter Care Teams Wind Energy Systems Installer Relationship Specialty Start Date End Date Vikash Massye MD [address] [place] [address] PCP - General Internal Medicine 06/27/20 documented as of this encounter
--- OUTSIDE RECORDS SUMMARY | 2024-07-21 14:34 | XMS_ITS | Encounter Summary ---
Author Organization [facility] Address [address] [place] [address] Care Team Providers Care Billing And Quality Technician Name Role Phone Vikash Massey MD Primary Care Provider [phone] Encounter Details Date Type Department Care Team [...] Visit [facility] Hematology Oncology [address] [place] [phone] Chika Vee MD [address] [place] [phone] documented as of this encounter Procedures Procedure Name Priority Date/Time Associated Diagnosis Comments ..MISCELLANEOUS REFERENCE LAB TEST 11/01/2023 ..MISCELLANEOUS REFERENCE LAB TEST 11/01/2023 ..MISCELLANEOUS REFERENCE LAB TEST 11/01/2023 documented in this encounter Results * Miscellaneous reference lab test (11/01/2023) Provider Onbase MD LAB BLOOD ORDERABLES Final Re sult * Miscellaneous reference lab test (11/01/2023) us Provider Onbase MD LAB BLOOD ORDERABLES Final Re sult * Miscellaneous reference lab test (11/01/2023) us Provider Onbase MD LAB BLOOD ORDERABLES Final Re sult documented in this encounter Visit Diagnoses Diagnosis Multiple myeloma not having achieved remission (CMS/HCC) documented in this encounter Care Teams Billing And Quality Technician Relationship Specialty Start Date End Date Vikash Massey MD [address] [place] [address] PCP - General Internal Medicine 06/27/20 documented as of this encounter
--- OUTSIDE RECORDS SUMMARY | 2024-07-21 14:34 | XMS_ITS | Encounter Summary ---
Author Organization [facility] Address [address] [place] [address] Care Team Providers Care Otorhinolaryngologist Name Role Phone Vikash Massey MD Primary Care Provider [phone] Encounter Details Date Type Department Care Team [...] Description 08/14/2024 10:30 AM EDT Office Visit [facility] Hematology Oncology [address] [place] [address] Sarbjit-Chika Jackson MD [address] [place] [address] documented as of this encounter Procedures Procedure Name Priority Date/Time Associated Diagnosis Comments ..MISCELLANEOUS REFERENCE LAB TEST 09/27/2023 documented in this encounter Results * Miscellaneous reference lab test (09/27/2023) us Provider Onbase LAB BLOOD ORDERABLES Final Re sult documented in this encounter Visit Diagnoses Diagnosis Multiple myeloma not having achieved remission (CMS/HCC) documented in this encounter Care Teams Otorhinolaryngologist Relationship Specialty Start Date End Date Vikash Massey MD [address] [place] [address] PCP - General Internal Medicine 06/27/20 documented as of this encounter
--- OUTSIDE RECORDS SUMMARY | 2024-07-21 14:34 | XMS_ITS | Encounter Summary ---
Author Organization [facility] Address [address] [place] [address] Care Team Providers Care Relief Worker Name Role Phone Vikash Massey MD Primary Care Provider [phone] Encounter Details Date Type Department Care Team [...] 08/14/2024 10:30 AM EDT Office Visit [facility] Hematology Oncology [address] [place] [address] Sarbjit-Chika Jackson MD [address] [place] [address] documented as of this encounter Procedures Procedure Name Priority Date/Time Associated Diagnosis Comments ..MISCELLANEOUS REFERENCE LAB TEST 10/25/2023 documented in this encounter Results * Miscellaneous reference lab test (10/25/2023) us Provider Onbase LAB BLOOD ORDERABLES Final Re sult documented in this encounter Visit Diagnoses Diagnosis Multiple myeloma not having achieved remission (CMS/HCC) documented in this encounter Care Teams Relief Worker Relationship Specialty Start Date End Date Vikash Massey MD [address] [place] [address] PCP - General Internal Medicine 06/27/20 documented as of this encounter
== END 2024-07-21 12:43 | disposition home or self-care (01) ==
LOC: HO.HKAS 11:44
PROVIDERS: PCP Internal Medicine; Visit Provider Internal Medicine Nephrology
DX: N18.4 Chronic kidney disease, stage 4 (severe) (principal); E87.20 Acidosis, unspecified; D63.8 Anemia in other chronic diseases classified elsewhere
CPT/HCPCS: 99214

== ENCOUNTER → 2024-07-21 11:44 | Outpatient (BNVA) | payer MEDICARE, OTHER, SELFPAY | PROVIDERS: PCP Internal Medicine; Visit Provider Internal Medicine Nephrology | DX: N18.4 Chronic kidney disease, stage 4 (severe) (principal); E87.20 Acidosis, unspecified; D63.1 Anemia in chronic kidney disease; R32 Unspecified urinary incontinence; Z92.21 Personal history of antineoplastic chemotherapy | CPT/HCPCS: 99212 ==

== ENCOUNTER 2024-10-29 13:28 | Outpatient (AMB) | payer MEDICARE, OTHER, SELFPAY ==
--- OUTSIDE RECORDS SUMMARY | 2023-11-22 11:00 | XMS_ITS | Encounter Summary ---
Author Organization [facility] [place] [address] Care Team Providers Care Aerial Survey Technician Name Role Phone Vikash Massey MD Primary Care Provider [phone] Encounter Details Date Type Department Care Team (Latest Contact Info) Description 11/22/2023 11:00 AM EDT Hospital Encounter TH HISTORIC [...] Progress Notes * Historical, Notes Results - 11/22/2023 11:00 AM EDT 1115 Argenis padillaves for ongoing treatment with Darazalex and velcade. She is feeling well and reportsthings at home are progressing well. Labs are reviewed and within range for treatment. Resting, taking snacks... 1200 resting, no distress 1230 treatment complete without incident, left unit ambulatory, next appointment provided. documented in this encounter Plan of Treatment Upcoming Encounters Date Type Department Care Team (Late st Contact Info) Description 10/30/2024 11:00 AM EDT Appointment [facility] [address] [place] [phone] 11/06/2024 11:00 AM EDT Appointment [facility] [address] [place] [phone] 11/13/2024 11:00 AM EDT Appointment [facility] [address] [place] [phone] 11/27/2024 10:45 AM EDT Office Visit [facility] Hematology Oncology [address] [place] [phone] Chika Vee MD [address] [place] [phone] documented as of this encounter Procedures Procedure Name Priority Date/Time Associated Diagnosis Comments ..MISCELLANEOUS REFERENCE LAB TEST 11/22/2023 documented in this encounter Results * Miscellaneous reference lab test (11/22/2023) us Provider Onbase LAB BLOOD ORDERABLES Final Re sult documented in this encounter Visit Diagnoses Diagnosis Multiple myeloma not having achieved remission (CMS/HCC V24, CMS/HCC V28) documented in this encounter Care Teams Aerial Survey Technician Relationship Specialty Start Date End Date Vikash Massey MD [address] [place] [address] PCP - General Internal Medicine 06/27/20 documented as of this encounter
--- NOTE | 2024-10-29 13:42 | HO.NEPHOV ---
Vital Signs 10/29/24 13:49 Height 5 ft 5 in Weight 183 lb BMI 30.4 BP 124/80 Blood Pressure Location Lt brachial Position Sitting Pulse 86 Pulse Source Pulse Oximeter Pulse Oximetry (%) 96 Oxygen Delivery Method Room Air Intake Visit Reasons: 3 MO FU-LVM [employer] Consultant Required: No Accompanied by: Self / Same As Patient Allergies Penicillins Allergy (Verified 10/29/24 13:49) Unknown HPI Comments Details: Argenis is a 82-year-old female whom I had the privilege of seeing in follow-up. She had acute kidney injury from multiple myeloma and had been on dialysis. Her GFR had improved with good urine output and subsequently her dialysis was discontinued. She gets chemotherapy once a week from Dr. Jackson. Her anemia is managed by her patrol deputy sheriff . She does not have any new bone pain, back pain, high serum calcium. Her GFR has improved to 18 mls/mt. She denies any chest pain, shortness of breath, nausea vomiting, diarrhea, orthostatic symptoms or pedal edema. Her appetite is good and her energy levels are acceptable. She had no new antibiotic intake, hospitalizations or any infections recently. She does not have any dysuria, hematuria, flank pain. She has been having intermittent incontinence. She feels stable otherwise [facility] Medical History (Updated 02/18/23 @ 11:44 by John Diaz MD) H/O malignant neoplasm of breast Multiple myeloma History of hemodialysis Anemia of chronic disease Metabolic acidosis Acute kidney injury Chronic kidney disease, stage 4 (severe) Social History Alcohol intake: never Patient Tobacco Use Status: Never used Tobacco Review of Systems Const All systems reviewed & are unremarkable except as noted in HPI and below Physical Exam Const General: comfortable and no acute distress Orientation/consciousness: patient oriented x3 HEENT Head: Yes normocephalic Mouth: Normal oral and palatal mucosa present Eyes EOM: EOMs intact bilaterally Neck Neck: Yes supple Resp Auscultation: clear to auscultation bilaterally Cardio Jugular venous distension: no JVD Rate: regular rate GI Palpation (GI): Soft to palpation Auscultation: normal bowel sounds General: Yes no CVA tenderness Back/Spine/Pelvis Back: no CVA tenderness Skin General skin exam: no rashes or lesions noted Neuro General: patient oriented x3 and moves all extremities Extrem General: Yes no pedal edema Assessment & Plan Assessment & Plan (1) Chronic kidney disease, stage 4 (severe): Code(s): N18.4 - Chronic kidney disease, stage 4 (severe) Category: Medical (2) Metabolic acidosis: Code(s): E87.20 - Acidosis, unspecified Category: Medical (3) Anemia of chronic disease: Code(s): D63.8 - Anemia in other chronic diseases classified elsewhere Category: Medical Plan Argenis has chronic kidney disease stage 4. She has multiple myeloma and had been getting chemotherapy. She is closely followed by her oncologist. Her GFR has been stable ever since she had come off hemodialysis. Her urine output is good. Her volume status is acceptable. Her serum potassium is normal . She should continue NaHCO3 650 mg 2 tablets AM and 2 tablet PM. She has anemia chronic disease and is managed by her oncologist. I have ordered follow-up blood work. She should maintain good hydration. She should avoid nonsteroidal inflammatory medications as well as Bactrim if possible. She may need to see a Urologist. I did not make any medication changes at this office visit. All her questions were answered. Follow-up given Coding Level of Care Code Est Pt Level 4 (21364) Diagnoses Chronic kidney disease, stage 4 (severe) N18.4 Metabolic acidosis E87.20 Anemia of chronic disease D63.8
[2024-10-29 13:49] VITALS: BP 124/80; PULSE 86; O2SAT 96; BMI 30.4
--- OUTSIDE RECORDS SUMMARY | 2024-10-29 14:02 | XMS_ITS ---
Author Name [facility] Organization Unknown Encounters Encounter Type Encounter Reason Primary Diagnosis Location Date Ambulatory [facility] 02/11/2024 Care Team Organization Name Specialty Phone Email Start Date End Da te Pending sale to [facility] 2024
--- OUTSIDE RECORDS SUMMARY | 2024-10-29 14:02 | XMS_ITS | Patient Health Record ---
Author Organization [facility] Address [address] [place] [address] Care Team Providers Care Hoop Rolls Operator Name Role Phone Shilpa THOMAS, Vikash Primary Care Provider Unavail able Viky Yoder Unavailable [phone] Renaldo Bello Unavailable [phone] Allergies Allergen (clinical drug ingredient) Drug/Non Drug Allergy documented on EMR Reaction Allergy Type Onset Date Status Penicillin Unknown Drug Allergy Active Reason For Referral No Information Medications Medication SIG (Take, Route, Frequency, Duration) Notes Start Date End Date Status amLODIPine Besy-Benazepril HCl 2.5-10 MG as directed Orally Not-Taki ng Centrum Silver Activ e Levothyroxine Sodium 50 MCG 1 tablet on an empty stomach in the morning Orally Once a day Active Calcium + D 600 mg N ot-Taking Glucosamine Chondr Complex 500 mg Not-Taking Aspirin 81 mg Not-Ta darlene Sodium Bicarbonate A ctive valACYclovir HCl 500 MG 1 tablet Orally Once a day Active Warfarin Sodium 6 MG 1 tablet Orally Onc e a day Active Simvastatin Active Famotidine 20 MG 1 tablet at bedtime as needed Orally Once a day; Duration: 30 day(s) Active Immunizations Vaccine Route Administration Date Status Comme [...] W/U Status Risk Notes Problem Plantar wart (34095353) Plantar wart (B07.0) Active confirmed Problem Primary osteoarthritis, 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 confirmed Problem Acquired hammer toe of left foot (5185917048988479 ) Other hammer toe(s) (acquired), left foot (M20.42) Active confirmed Problem Porokeratosis (735518444) Porokeratosis (Q82.8) Active confirmed Vital Signs Blood pressure diastolic 79 mm Hg 08/20/2024 Height 5 ft 5 in in 08/20/2024 Blood pressure systolic 132 mm Hg 08/20/2024 Weight 182 lbs 08/20/2024 BMI 30.28 kg/m2 08/20/2024 Procedures Procedure Date Ordered Date Performed Result Body Sit e 83896-IHAAAQH NAIL, 6 OR MORE 01/16/2024 N/A [id number] NAIL, 6 OR MORE 03/31/2024 N/A Encounters Encounter Location Date Provider Diagnosis [address] [address] 01/16/2024 Renaldo Bello Tinea unguium B35.1 ; Pain in right toe(s) M79.674 ; Pain in left toe(s) M79.675 and Xerosis cutis L85.[address] [address] 03/31/2024 Renaldo Bello Tinea unguium B35.1 ; Pain in right toe(s) M79.674 and Pain in left toe(s) M79.[address] [address] 06/15/2024 Viky Yoder Tinea unguium B35.1 ; Pain in right toe(s) M79.674 ; Pain in left toe(s) M79.675 ; Right foot pain M79.671 ; Plantar wart B07.0 and Xerosis of skin L85.[address] [address] 08/20/2024 Viky Yoder Tinea unguium B35.1 ; Pain in right toe(s) M79.674 ; Pain in left toe(s) M79.675 ; Right foot pain M79.671 and Plantar wart B07.[address] [address] 12/30/2023 [facility] [address] [place] [address] 04/27/2024 Renaldo Bello [address] [address] 08/20/2024 Renaldo Bello Assessments Encounter Date Diagnosis (ICD Code) Assessment Notes Treatment Notes Treatment Clinical Notes Section Notes 01/16/2024 Tinea unguium (ICD-10 - B35.1) 01/16/2024 Pain in right toe(s) (ICD-10 - M79.674) 03/31/2024 Tinea unguium (ICD-10 - B35.1) 03/31/2024 Pain in right toe(s) (ICD-10 - M79.674) 06/15/2024 Tinea unguium (ICD-10 - B35.1) 08/20/2024 Tinea unguium (ICD-10 - B35.1) 08/20/2024 Pain in right toe(s) (ICD-10 - M79.674) 06/15/2024 Pain in right toe(s) (ICD-10 - M79.674) 03/31/2024 Pain in left toe(s) (ICD-10 - M79.675) 01/16/2024 Pain in left toe(s) (ICD-10 - M79.675) 06/15/2024 Pain in left toe(s) (ICD-10 - M79.675) 08/20/2024 Pain in left toe(s) (ICD-10 - M79.675) 01/16/2024 Xerosis cutis (ICD-10 - L85.3) Application of [place]-Soothe skin care lotion to the feet 08/20/2024 Right foot pain (ICD-10 - M79.671) 06/15/2024 Right foot pain (ICD-10 - M79.671) 06/15/2024 Plantar wart (ICD-10 - B07.0) 08/20/2024 Plantar wart (ICD-10 - B07.0) 06/15/2024 Xerosis of skin (ICD-10 - L85.3) 03/31/2024 Other Plan Of Treatment Pending Test Test Name Order Date X ray : Foot, right 3V 03/24/2013 [id number] NAIL, 6 OR MORE 01/16/2024 [id number] NAIL, 6 OR MORE 03/31/2024 07065, J0702- INJECT or DRAIN, JOINT/BUR SA 09/24/2017 15023, J0702- INJECT or DRAIN, JOINT/BUR SA 10/27/2019 07538, J0702- INJECT or DRAIN, JOINT/BUR SA 04/28/2021 52276, J0702- Neuroma/Injection 03/24/20 13 85279, J0702- Neuroma/Injection 12/25/19 14 Next Appt Details Provider Name:Viky wheeler, 11/02/2024 02:45:00 PM, [address] [facility], [place], [address], Insurance Providers Payer Name Payer Address Payer Phone Subscriber Number Group Number Insured Name Patient Relationship to Insured Coverage Start Date Coverage End Date Medicare [employer] [address] [place] [address] [id number] Argenis Nova Self - patient is the insured [facility] [address] [place] [address] [phone] [id number] Argenis Nova Self - patient is the insured Medical (General) History Medical History History ICD Code osteoarthritis breast cancer measles mumps chicken pox Lyme disease Back,Hip,and Knee pain Psoriasis/eczema Thyroid disorder Multiple Myloma Pneumonia bronchitis acute Kidney disease Cancer chemo Surgical History Surgery Date(Month/Year) Bone Spurs 1982 neck surgery - vertebrae fusion 1984 breast surgery - cancer 2009 Hospitalization History Reason Date(Month/Year) multiple myeloma chemotherapy
--- OUTSIDE RECORDS SUMMARY | 2024-10-29 14:03 | XMS_ITS | Clinical Summary ---
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 Multiple myeloma not having achieved remission 10/03/2021 11/28/2022 Nausea 09/14/2021 11/28/2022 Other fatigue 09/14/2021 11/28/2022 Pain in left ankle and joint of left foot 07/14/2020 11/28/2022 Encounter for screening for depression 03/14/2020 11/28/2022 Benign paroxysmal vertigo, unspecified ear 05/18/2019 11/28/2022 Age-related cataract 02/23/2019 023 Encounter for other preprocedural examination 02/24/20 19 11/28/2022 Body mass index (BMI) 31.0-31.9, adult 05/12/2018 [...] Due Date Last Done Comments Pneumococcal Vaccine: 50+ Ye ars (1 of 2 - PCV) 1961 Influenza Vaccine (#1) 2024 Hepatitis B Vaccine Aged Out No longe r eligible based on patient's age to complete this topic Insurance Medicare [facility] Medicare [facility] Care Teams Insecticide Mixer Relationship Specialty Start Date End Date Vikash Massey MD [address] [place] [address] PCP - General Internal Medicine 11/29/22
--- OUTSIDE RECORDS SUMMARY | 2024-10-29 14:03 | XMS_ITS | Encounter Summary ---
Author Organization [facility] Address [address] [place] [address] Care Team Providers Care Health Diagnostics Teacher Name Role Phone Vikash Massey MD Primary Care Provider Encounter Details Date Type Department Care Team Description 10/06/2021 Social Work [facility] Oncology Services [address] [place] [address] Arturo Schaeffer [facility] Social History Tobacco Use Types Packs/Day Years [...] on filedocumented in this encounter Care Teams Health Diagnostics Teacher Relationship Specialty Start Date End Date Vikash Massey MD [address] [address] PCP - General Internal Medicine 10/05/21 documented as of this encounter
--- OUTSIDE RECORDS SUMMARY | 2024-10-29 14:03 | XMS_ITS | Continuity of Care Document ---
Author Organization [facility], AMPARO Sarmiento 2nd floor Address [address] [place] [address] Care Team Providers Care Highway Engineering Teacher Name Role Phone EH FAUZIA Primary Care Provider Assessment No assessment recorded. Plan of Treatment Reminders Order Date Submit Date Provider Last Modified By Organization Details Last Modified Time Details Appointments RECHECK 15 2024 01:00P Carla Garcia PA-C Not available Not available Not available RECHECK 15 2024 11:00A M Giogri Garcia PA-C Not available Not available Not available RECHECK 15 2024 11:00A Carla Garcia PA-C Not available Not available Not available Lab None recorded . Referral None recorded . Procedures None recorded . Surgeries None recorded . Imaging None recorded . Medication Orders None recorded . Patient TargetsNo targets recorded. Patient InstructionsNo instructions recorded. Reason for Referral None Reported. Problems Name Problem SNOMED Code Status Onset Date Resolution Date Notes Provider Name and Address Organization Details Recorded Time No complaints [id number] Active Status : 'A'; Not Available [facility] 4 09:26:14 Trochanter ic bursitis of right hip 0514719019221 00 Active 2023 Giorgi Garcia PA-C [address], [place], [address] , [facility] 5 08:26:18 Trochanter ic bursitis of left hip 2095408318973 03 Active 2023 Giorgi Garcia PA-C [address], [place], [address] , [facility] 4 13:46:29 Osteoarthr itis of left knee joint 0202775500005 09 Active 2024 Giorgi Garcia PA-C [address], [place], [address] , [facility] 5 06:33:29 Osteoarthr itis of right knee joint 8606289213260 00 Active 2024 Giorgi Garcia PA-C [address], [place], [address] , [facility] 5 08:24:48 Problem Notes None recorded. Procedures Surgical History Date Name Laterality Status Provider Name and Address Organization Details Recorded Time 5 Hip Kenalog 1cc Injection, L/R completed Giorgi Garcia PA-C [address], [place], [address], [facility] 10/26/2024 06:15:22 5 Gel-One Knee Injection completed Giorgi Garcia PA-C [address], [place], [address], [facility] 10/06/2024 06:33:21 5 Hip Kenalog 1cc Injection, L/R completed Giorgi Garcia PA-C [address], [place], [address], [facility] 08/04/2024 13:26:06 5 Knee Kenalog 40 1cc Injection, Bilateral completed Giorgi Garcia PA-C [address], [place], [address], [facility] 08/04/2024 06:06:32 5 Hip Kenalog 1cc Injection, L/R completed Giorgi Garcia PA-C [address], [place], [address], [facility] 07/21/2024 13:55:43 5 Hip Kenalog 1cc Injection, L/R completed Giorgi Garcia PA-C [address], [place], [address], [facility] 05/12/2024 08:26:08 5 Knee Kenalog 40 1cc Injection, Bilateral completed Giorgi Garcia PA-C [address], [place], [address], [facility] 05/12/2024 08:24:50 5 Hip Kenalog 1cc Injection, L/R completed Giorgi Garcia PA-C [address], [place], [address], [facility] 04/28/2024 06:25:39 4 Knee Kenalog 40 1cc Injection, Bilateral completed Dallas Alexander PA-C [address], [place], [address], [facility] 01/08/2024 07:56:24 4 Hip Kenalog 1cc Injection, L/R completed Giorgi Garcia PA-C [address], [place], [address], [facility] 12/03/2023 06:19:13 4 Hip Kenalog 1cc Injection, L/R completed Giorgi Garcia PA-C [address], [place], [address], [facility] 11/18/2023 06:16:28 4 Knee Kenalog 40 1cc Injection, Bilateral completed Dallas Alexander PA-C [address], [place], [address], [facility] 09/16/2023 13:38:33 4 Hip Kenalog 1cc Injection, L/R completed Giorgi Garcia PA-C [address], [place], [address], [facility] 09/04/2023 13:46:19 4 Hip Kenalog 1cc Injection, L/R completed Giorgi Garcia PA-C [address] [facility] [address] [address], [place], [address], [facility] 07/03/2023 12:45:22 Imaging Results None recorded. Procedure Notes None recorded. Medical Equipment None Reported. Allergies Allergen ID Allergen Name Allergen Category Reaction Reaction Severity Criticality Documentation Date Start Date Code Code System Note Provider Name and Address Organization Details Recorded Time 43319 Product containin g penicilli n (product) medicatio n Not available Not available Not available 06/17/20232012 06493 8001 SNOMED Not Available [facility] 4 12:08:57 Medications Name Sig Start Date Stop Date Status Note LastModified by Organization Details LastModified Time doxycycline hyclate 100 mg capsule TAKE 1 CAPSULE BY MOUTH TWICE A DAY FOR 14 DAYS active Not Available Not Available No t Available azithromycin 250 mg tablet TAKE 2 TABLETS BY MOUTH TODAY, THEN TAKE 1 TABLET DAILY FOR 4 DAYS DIRECTED active Not Available Not Available No t Available fluocinonide 0.05 % topical gel APPLY TO AFFECTED AREA DAILY FOR ORB PSORIASIS active Not Available Not Available No t Available metronidazol e 500 mg tablet TAKE 1 TABLET BY MOUTH THREE TIMES A DAY active Not Available Not Available Not Available levofloxacin 250 mg tablet TAKE 1 TABLET BY MOUTH EVERY OTHER DAY active Not Available Not Available No t Available amlodipine 5 mg tablet TAKE 1/2 TABLET BY MOUTH DAILY active Not Available Not Available Not Available valacyclovir 500 mg tablet TAKE 1 TABLET (500 MG TOTAL) BY MOUTH DAILY. active Not Available Not Available No t Available warfarin 3 mg tablet TAKE 1 TABLET BY MOUTH EVERY DAY active Not Available Not Available No t Available famotidine 20 mg tablet TAKE 1 TABLET BY MOUTH TWICE A DAY active Not Available Not Available No t Available gentamicin 0.3 % eye drops INSTILL 1 DROP (OPHTHALMIC (EYE) - RIGHT) EVERY 4 HOURS FOR 7 DAYS active Not Available Not Available No t Available sodium bicarbonate 650 mg tablet TAKE 2 TABLETS BY MOUTH TWICE A DAY active Not Available Not Available No t Available levothyroxin e 50 mcg tablet 1 TAB TAKE DAILY & TAKE EXTRA PILL ON SATURDAY active Not Available Not Available No t Available simvastatin 20 mg tablet 1 TAB BY MOUTH EVERYDAY AT BEDTIME active Not Available Not Available No t Available erythromycin 5 mg/gram (0.5 %) eye ointment APPLY TO AFFECTED EYE(S) 4 TIMES A DAY FOR 7 DAYS active Not Available Not Available N ot Available dexamethason e 4 mg tablet TAKE 3 TABS EVERY AM WITH BREAKFAST. ONLY ON SATURDAY- TAKE AT HOME ON THE WEEK WITHOUT CHEMOTHERAP Y active Not Available Not Available No t Available warfarin 5 mg tablet TAKE 1 TABLET BY MOUTH EVERY DAY active Not Available Not Available No t Available vancomycin 50 mg/mL oral solution TAKE 5MLS BY MOUTH 3 TIMES A DAY FOR 7 DAYS. DISCARD EXTRA* active Not Available Not Available No t Available warfarin 1 mg tablet TAKE 1.5 TABLETS (1.5 MG) BY MOUTH ONCE DAILY WITH 5 MG TABLET FOR A TOTAL DAILY DOSE OF 6.5 MG. active Not Available Not Available N ot Available methylpredni solone 4 mg tablets in a dose pack TAKE 6 TABLETS ON DAY 1 DIRECTED ON PACKAGE AND DECREASE BY 1 TAB EACH DAY FOR A TOTAL OF 6 DAYS active Not Available Not Available No t Available ondansetron 4 mg disintegrati ng tablet TAKE 1 TABLET BY MOUTH EVERY 8 HOURS IF NEEDED FOR NAUSEA OR VOMITING. active Not Available Not Available No t Available tobramycin 0.3 %-dexamethas one 0.1 % eye drops,suspen suzanna INSTILL 1 DROP INTO AFFECTED EYE THREE TIMES A DAY DIRECTED FOR 10 DAYS active Not Available Not Available Not Available pomalidomide 2 mg capsule Take 2 capsules every day by oral route. active Not Available Not Available No t Available Paxlovid 150 mg-100 mg tablets in a dose pack (Moderate Renal Dose) TAKE 2 TABLETS BY MOUTH TWICE A DAY active Not Available Not Available No t Available Vitals Date Recorded Body height Body mass index (BMI) Body weight Provider Name and Address Organization Details Last Updated DateTime 10/26/2024 162.56 cm 33.5 kg/m2 96265.51 g Giorgi Garcia PA-C [address] [place] [address] [address], [place], [address], [place] [facility] 10/26/2024 13:08:39 Social History None recorded. Functional Status None recorded. Mental Status None recorded. Family History Nothing Reported. Medical History Condition Response Cancer Y Kidney/Bladder Problems Y Anemia Y Arthritis Y Thyroid Problems Y Gynecological HistoryNo gynecological history recorded. Obstetrics History GPAL:G 0 P 0 0 0 0 Past Encounters Encounter ID Performer Location Encounter Start Date Encounter Closed Date Diagnosis/Indication Diagnosis SNOMED-CT Code Diagnosis ICD10 Code Diagnosis Note [id number] ANNA Tid[facility] [address] [place] [place] [id number] 10/06/2024 10:48:46 10/08/2024 12:35:25 Osteoarthritis of left knee joint 0268622127 73886 M17.12 [id number] ANNA Tidwell 2nd [address] [place] [id number] 10/26/2024 12:55:27 10/26/2024 13:20:54 Trochanteric bursitis of right hip [id number] 24616 M70.61 Health Concerns Section Related Observation LastModified by Organization Detai ls LastModified Time None Recorded Concern Status LastModified by Organization Details LastModified Time None Recorded Payers Encounter Date Sequence Insurance Name Policy Number Policy Marvin Covered Member ID Marvin Member ID Guarantor Name 10/26/2024 1 [place]: [employer] Argenis Nova [id number] Argenis Nova 10/26/[address] [facility] [id number] 3 Argenis Nova [id number] Argenis Nova Notes Date Note Type Note Provider Name and Address Organization Details Recorded Time 10/26/2024 text/html I am seeing the patient today under the supervision of Dr. Mart who was available but who did not see the patient. History: Argenis is a very pleasant 82-year-old female who comes into the office today for evaluation of her right hip. She reports recurring symptoms in her left hip she is caring for her and recently underwent a BKA amp. Clinical Update:Patient returns today for follow-up evaluation regarding her right hip, symptoms consistent with trochanteric bursitis she is attending physical therapy but now returns with recurring pain. She had an acute episode of bronchitis and also developed C. difficile while on the prednisone that is since subsided and she is feeling slowly better. Mental Status: Alert and oriented x3. Normal insight, affect, and groomingCNS: Gross motor coordination is intact. No spasticity or clonus noted.Extremities: Calves are soft and nontender. Skin on lower extremities is intact. Palpable pedal pulses bilaterally Orthopedic Exam: Right hip exam demonstrates flexion to 90 with pain, external rotates 30 internal rotates 10 with pain, pain with passive logrolling maneuver, negative straight leg raise test, 2+ palpable tenderness along the greater trochanter. Assessment: Right hip greater trochanteric bursitis Plan: The patient was thoroughly counseled today regarding their hip condition, its natural history, and the treatment options including physical therapy, medication, and corticosteroid injection. The patient is interested in receiving an injection with corticosteroid to the left greater trochanteric bursa Giorgi Garcia PA-C [address] [facility] [address], [place], [address], [facility] 10/26/2024 13:20:52 OBGyn Episode No OBEpisode recorded.
== END 2024-10-29 14:14 | disposition home or self-care (01) ==
LOC: HO.HKAS 13:28
PROVIDERS: PCP Internal Medicine; Visit Provider Internal Medicine Nephrology
DX: N18.4 Chronic kidney disease, stage 4 (severe) (principal); E87.20 Acidosis, unspecified; D63.8 Anemia in other chronic diseases classified elsewhere
CPT/HCPCS: 99214

== ENCOUNTER → 2024-10-29 13:28 | Outpatient (BNVA) | payer MEDICARE, OTHER, SELFPAY | PROVIDERS: PCP Internal Medicine; Visit Provider Internal Medicine Nephrology | DX: N18.4 Chronic kidney disease, stage 4 (severe) (principal); E87.20 Acidosis, unspecified; D63.8 Anemia in other chronic diseases classified elsewhere | CPT/HCPCS: 99212 ==

== ENCOUNTER 2025-01-28 13:30 | Outpatient (AMB) | payer MEDICARE, OTHER, SELFPAY ==
--- OUTSIDE RECORDS SUMMARY | 2023-09-27 11:15 | XMS_ITS | Encounter Summary ---
Author Organization [facility] [place] [address] Care Team Providers Care Ammonia Distiller Name Role Phone Vikash Masesy MD Primary Care Provider Encounter Details Date Type Department Care Team (Latest Contact Info) Description 09/27/2023 11:15 AM EDT Hospital Encounter TH HISTORIC ENCOUNTERS [facility]AST[facility] CONVERSION ONLY Multiple myeloma not having achieved remission (CMS/HCC V24, CMS/HCC V28) Social History Tobacco Use Types Packs/Day Years Used Date Smoking Tobacco: Never Smokeless Tobacco: Never Alcohol Use Standard Drinks/Week Comments Yes 0 (1 standard drink = 0.6 oz pur e alcohol) Comments No Sex and Gender Information Value Date Recorded Sex Assigned at Female 04/24/2024 10:42 AM EST Legal Sex Female 11:14 AM EST Gender Identity Female 04/24/2024 10:42 AM EST Sexual Orientation Straight 04/24/2024 10 :43 AM EST documented as of this encounter Last Filed Vital Signs Vital Sign Reading Time Taken Comments Blood Pressure - - Pulse - - Temperature - - Respiratory Rate - - Oxygen Saturation - - Inhaled Oxygen Concentration - - Weight 87.5 kg (192 lb 14.4 oz) 024 11:07 AM EDT Height 163.8 cm (5' 4.5 ) 11/29/2023 11 :13 AM EDT Body Mass Index 32.6 11/29/2023 11:13 AM EDT documented in this encounter Progress Notes * Historical, Notes Results - 09/27/2023 11:15 AM EDT 1135 Argenis arrives for ongoing treatment with velcade, darzalex and dexamethasone. She arrives using her walker, today is cycle 26. Labs are reviewed and within range for treatment. Iron studies alsoreviewed and no need for iron infusions. Will not need retacrit today either. Argenis does report that her , Brianna will be coming home on 10/03/23 from Rehab. Labs drawn per Dr. Jackson new standing order. 1230 ate lunch and tolerated well 1336 velcade given into left side of Abdomen and darzalex given into right side of abdomen without incident. 1345 left unit ambulatory, next appointments confirmed. documented in this encounter Plan of Treatment Upcoming Encounters Date Type Department Care Team (Late st Contact Info) Description 01/29/2025 11:00 AM EDT Appointment [facility] [address] [place] [phone] 02/05/2025 11:00 AM EDT Appointment [facility] [address] [place] [phone] 03/19/2025 10:30 AM EST Office Visit [facility] Hematology Oncology [address] [place] [phone] Chika Vee MD [address] [place] [phone] documented as of this encounter Procedures Procedure Name Priority Date/Time Associated Diagnosis Comments ..MISCELLANEOUS REFERENCE LAB TEST 09/27/2023 documented in this encounter Results * Miscellaneous reference lab test (09/27/2023) us Provider Onbase LAB BLOOD ORDERABLES Final Re sult documented in this encounter Visit Diagnoses Diagnosis Multiple myeloma not having achieved remission (CMS/HCC V24, CMS/HCC V28) documented in this encounter Care Teams Ammonia Distiller Relationship Specialty Start Date End Date Vikash Massey MD [address] [place] [address] PCP - General Internal Medicine 06/27/20 documented as of this encounter
--- OUTSIDE RECORDS SUMMARY | 2023-10-04 11:00 | XMS_ITS | Encounter Summary ---
Author Organization [facility] [place] [address] Care Team Providers Care Sanitary Landfill Operator Name Role Phone Vikash Massey MD Primary Care Provider [phone] Encounter Details Date Type Department Care Team (Latest Contact Info) Description 10/04/2023 11:00 AM EDT Hospital Encounter TH HISTORIC ENCOUNTERS [facility] CONVERSION ONLY Multiple myeloma not having achieved remission (CMS/HCC V24, CMS/HCC V28); Other iron deficiency anemias; Acute kidney failure, unspecified (CMS/HCC V24); Anemia in neoplastic disease Social History Tobacco Use Types Packs/Day Years [...] Progress Notes * Historical, Notes Results - 10/04/2023 11:00 AM EDT 1105 Argenis arrives for cycle 26 day 8 of treatment with velcade. She is feeling more fatigued. Her , Berlin, returned home after 100 days in rehab for below the knee amputation. She has been very busy getting ready for him to return. Labs are reviewed and will receive retacrit today. 1130 resting, reading 1210 velcade administered into right side of abdomen with out incident. 1215 left unit ambulatory with walker, next appointment verified. documented in this encounter Plan of Treatment Upcoming Encounters Date Type Department Care Team (Late st Contact Info) Description 01/29/2025 11:00 AM EDT Appointment [address] [phone] 02/05/2025 11:00 AM EDT Appointment [address] [phone] 03/19/2025 10:30 AM EST Office Visit [facility] Hematology Oncology [address] [place] [phone] Chika Vee MD [address] [place] [phone] documented as of this encounter Procedures Procedure Name Priority Date/Time Associated Diagnosis Comments ..MISCELLANEOUS REFERENCE LAB TEST 10/04/2023 documented in this encounter Results * Miscellaneous reference lab test (10/04/2023) us Provider Onbase LAB BLOOD ORDERABLES Final Re sult documented in this encounter Visit Diagnoses Diagnosis Multiple myeloma not having achieved remission (CMS/HCC V24, CMS/HCC V28) Other iron deficiency anemias Acute kidney failure, unspecified (CMS/HCC V24) Acute kidney failure, unspecified Anemia in neoplastic disease documented in this encounter Care Teams Sanitary Landfill Operator Relationship Specialty Start Date End Date Vikash Massey MD [address] [place] [address] PCP - General Internal Medicine 06/27/20 documented as of this encounter
--- OUTSIDE RECORDS SUMMARY | 2023-10-11 11:00 | XMS_ITS | Encounter Summary ---
Author Organization [facility] [place] [address] Care Team Providers Care Gmat Instructor Name Role Phone Vikash Massey MD Primary Care Provider [phone] Encounter Details Date Type Department Care Team (Latest Contact Info) Description 10/11/2023 11:00 AM EDT Hospital Encounter TH HISTORIC [...] Progress Notes * Historical, Notes Results - 10/11/2023 11:00 AM EDT 1300 Argenis arrives for cycle 36 day 15. Her labs are reviewed and are improved from last week. She is feeling well and is adjusting to her home from rehab. She arrives using her walker 1400 resting, reading, no distress 1430 both retacrit and velcade administerd without incident, velcade administered into left arm andvelcade administered into left side of abdomen. appointments provided for next cycle documented in this encounter Plan of Treatment Upcoming Encounters Date Type Department Care Team (Late st Contact Info) Description 01/29/2025 11:00 AM EDT Appointment [facility] [address] [place] [phone] 02/05/2025 11:00 AM EDT Appointment [facility] [address] [place] [phone] 03/19/2025 10:30 AM EST Office Visit [facility] Hematology Oncology [address] [place] [phone] Chika Vee MD [address] [place] [address] documented as of this encounter Procedures Procedure Name Priority Date/Time Associated Diagnosis Comments ..MISCELLANEOUS REFERENCE LAB TEST 10/11/2023 documented in this encounter Results * Miscellaneous reference lab test (10/11/2023) us Provider Onbase LAB BLOOD ORDERABLES Final Re sult documented in this encounter Visit Diagnoses Diagnosis Multiple myeloma not having achieved remission (CMS/HCC V24, CMS/HCC V28) Other iron deficiency anemias Acute kidney failure, unspecified (CMS/HCC V24) Acute kidney failure, unspecified Anemia in neoplastic disease documented in this encounter Care Teams Gmat Instructor Relationship Specialty Start Date End Date Vikash Massey MD [address] [place] [address] PCP - General Internal Medicine 06/27/20 documented as of this encounter
--- OUTSIDE RECORDS SUMMARY | 2023-10-25 11:00 | XMS_ITS | Encounter Summary ---
Author Organization [facility] [place] [address] Care Team Providers Care Restorer Lace And Textiles Name Role Phone Vikash Massey MD Primary Care Provider [phone] Encounter Details Date Type Department Care Team (Latest Contact Info) Description 10/25/2023 11:00 AM EDT Hospital Encounter TH HISTORIC [...] Progress Notes * Historical, Notes Results - 10/25/2023 11:00 AM EDT 1050 Argenis arrives for ongoing treatment with Darzalex and velcade. Today is cycle 27, day 1. Labs are reviewed and within range for treatment. Great response to Retacrit, as HGB is now 12.0. She is feeling well, but does admit fatigue related to caring for her ,who is home from rehab and continues to recover from below the knee amputation surgery. She states they are doing well and makingprogress each day. Snacks provided, and call milian in reach. 1130 resting reading, labs drawn as ordered Q 4 week standing order of myeloma labs. 1215 ate lunch regular diet and tolerated well 1230 Darzalex administered into right side of abdomen without incident, velcade administered into left side of abdomen. Abdominal skin continues to tolerate sub q medication administration very well. 1250 discharged to home ambulatory with walker. documented in this encounter Plan of Treatment Upcoming Encounters Date Type Department Care Team (Late st Contact Info) Description 01/29/2025 11:00 AM EDT Appointment [facility] [address] [place] [phone] 02/05/2025 11:00 AM EDT Appointment [facility] [address] [place] [phone] 03/19/2025 10:30 AM EST Office Visit [facility] Hematology Oncology [address] [place] [phone] Chika Vee MD [address] [place] [phone] documented as of this encounter Procedures Procedure Name Priority Date/Time Associated Diagnosis Comments ..MISCELLANEOUS REFERENCE LAB TEST 10/25/2023 documented in this encounter Results * Miscellaneous reference lab test (10/25/2023) us Provider Onbase LAB BLOOD ORDERABLES Final Re sult documented in this encounter Visit Diagnoses Diagnosis Multiple myeloma not having achieved remission (CMS/HCC V24, CMS/HCC V28) documented in this encounter Care Teams Restorer Lace And Textiles Relationship Specialty Start Date End Date Vikash Massey MD [address] [place] [address] PCP - General Internal Medicine 06/27/20 documented as of this encounter
--- OUTSIDE RECORDS SUMMARY | 2023-11-01 11:00 | XMS_ITS | Encounter Summary ---
Author Organization [facility] [place] [address] Care Team Providers Care Dobby Loom Fixer Name Role Phone Vikash Massey MD Primary Care Provider [phone] Encounter Details Date Type Department Care Team (Latest Contact Info) Description 11/01/2023 11:00 AM EDT Hospital Encounter TH HISTORIC [...] Progress Notes * Historical, Notes Results - 11/01/2023 11:00 AM EDT 1110 Argenis arrives for ongoing treatment day 8 cycle 27. She is feeling well and denies any changesto her health. All labs reviewed and call milian in reach. Premedications administered. Labs from 10/[address] Barth office. 1022 bortezomib administered into right side of abdomen without incident. Left unit ambulatory, next appointment confirmed, documented in this encounter Plan of Treatment Upcoming Encounters Date Type Department Care Team (Late st Contact Info) Description 01/29/2025 11:00 AM EDT Appointment [facility] [address] [place] [phone] 02/05/2025 11:00 AM EDT Appointment [facility] [address] [place] [phone] 03/19/2025 10:30 AM EST Office Visit [facility] Hematology Oncology [address] [place] [phone] Chika Vee MD [address] [place] [phone] documented as of this encounter Procedures Procedure Name Priority Date/Time Associated Diagnosis Comments ..MISCELLANEOUS REFERENCE LAB TEST 11/01/2023 ..MISCELLANEOUS REFERENCE LAB TEST 11/01/2023 ..MISCELLANEOUS REFERENCE LAB TEST 11/01/2023 documented in this encounter Results * Miscellaneous reference lab test (11/01/2023) us Provider Onbase MD LAB BLOOD ORDERABLES Final Re sult * Miscellaneous reference lab test (11/01/2023) us Provider Onbase MD LAB BLOOD ORDERABLES Final Re sult * Miscellaneous reference lab test (11/01/2023) us Provider Onbase MD LAB BLOOD ORDERABLES Final Re sult documented in this encounter Visit Diagnoses Diagnosis Multiple myeloma not having achieved remission (CMS/[facility] V24, CMS/[facility] V28) documented in this encounter Care Teams Dobby Loom Fixer Relationship Specialty Start Date End Date Vikash Massey MD [address] [place] [address] PCP - General Internal Medicine 06/27/20 documented as of this encounter
--- OUTSIDE RECORDS SUMMARY | 2023-11-08 11:00 | XMS_ITS | Encounter Summary ---
Author Organization [facility] [address] Care Team Providers Care Thoracic Medicine Specialist Name Role Phone Vikash Massey MD Primary Care Provider [phone] Encounter Details Date Type Department Care Team (Latest Contact Info) Description 11/08/2023 11:00 AM EDT Hospital Encounter TH HISTORIC [...] Progress Notes * Historical, Notes Results - 11/08/2023 11:00 AM EDT rAgenis arrives for ongoing treatment with Bortezomib, dex and darzalex. Today is cycle 27, day 15. She is looking a feeling well. She continues to adjust to her husbands recovery from the below the knee amputation, and return home. They have good support services in the home. Labs are reviewed and are good for treatment. hgb is 12.2, therefore, Retacrit will not be given today. Premedications admin istered, call milian in reach. Taking snacks. 1230 treatment complete without incident, left unit ambulatory, using her walker. documented in this encounter Plan of Treatment Upcoming Encounters Date Type Department Care Team (Late st Contact Info) Description 01/29/2025 11:00 AM EDT Appointment [facility] [address] [place] [phone] 02/05/2025 11:00 AM EDT Appointment [address] [phone] 03/19/2025 10:30 AM EST Office Visit [facility] Hematology Oncology [address] [place] [phone] Chika Vee MD [address] [place] [phone] documented as of this encounter Procedures Procedure Name Priority Date/Time Associated Diagnosis Comments ..MISCELLANEOUS REFERENCE LAB TEST 11/08/2023 documented in this encounter Results * Miscellaneous reference lab test (11/08/2023) us Provider Onbase LAB BLOOD ORDERABLES Final Re sult documented in this encounter Visit Diagnoses Diagnosis Multiple myeloma not having achieved remission (CMS/HCC V24, CMS/HCC V28) documented in this encounter Care Teams Thoracic Medicine Specialist Relationship Specialty Start Date End Date Vikash Massey MD [address] [place] [address] PCP - General Internal Medicine 06/27/20 documented as of this encounter
--- OUTSIDE RECORDS SUMMARY | 2023-11-22 11:00 | XMS_ITS | Encounter Summary ---
Author Organization [facility] [place] [address] Care Team Providers Care Director Radio Name Role Phone Vikash Massey MD Primary Care Provider [phone] Encounter Details Date Type Department Care Team [...] - 11/22/2023 11:00 AM EDT 1115 Argenis rachel for ongoing treatment with Darazalex and velcade. [...] Info) Description 01/29/2025 11:00 AM EDT Appointment [facility] [address] [place] [phone] 02/05/2025 11:00 AM EDT Appointment [facility] [address] [place] [phone] 03/19/2025 10:30 AM EST Office Visit [facility] Hematology Oncology [address] [place] [phone] Chika Vee MD [address] [place] [phone] documented as of this encounter Procedures Procedure Name Priority Date/Time Associated Diagnosis Comments ..MISCELLANEOUS REFERENCE LAB TEST 11/22/2023 documented in this encounter Results * Miscellaneous reference lab test (11/22/2023) us Provider Onbase LAB BLOOD ORDERABLES Final Re sult documented in this encounter Visit Diagnoses Diagnosis Multiple myeloma not having achieved remission (CMS/HCC V24, CMS/HCC V28) documented in this encounter Care Teams Director Radio Relationship Specialty Start Date End Date Vikash Massey MD [address] [place] [address] PCP - General Internal Medicine 06/27/20 documented as of this encounter
--- OUTSIDE RECORDS SUMMARY | 2023-11-29 10:45 | XMS_ITS | Encounter Summary ---
Author Organization [facility] [place] [address] Care Team Providers Care Dried Yeast Supervisor Name Role Phone Vikash Massey MD Primary Care Provider [phone] Encounter Details Date Type Department Care Team (Late st Contact Info) Description 11/29/2023 10:45 AM EDT Hospital Encounter TH HISTORIC ENCOUNTERS EASTERN CONVERSION ONLY Social History Tobacco Use Types Packs/Day Years [...] Progress Notes * Historical, Notes Results - 11/29/2023 11:00 AM EDT Argenis arrives ambulatory with walker for today's Velcade injection - feeling good - mild fatigue - labs reviewed and within treatment parameters - stable assessment completed. Meds released to pharmacy - patient resting comfortably in recliner - call milian in reach - given saltines and water. Premeds given to patient. 1234 - Velcade injection given to right abdomen - tolerated well - patient with good appetite for lunch. Has next appts in place. Stable upon discharge. documented in this encounter Plan of Treatment Upcoming Encounters Date Type Department Care Team (Late st Contact Info) Description 01/29/2025 11:00 AM EDT Appointment [address] [phone] 02/05/2025 11:00 AM EDT Appointment [facility] [address] [place] [phone] 03/19/2025 10:30 AM EST Office Visit [facility] Hematology Oncology [address] [place] [phone] Sarbjit-Chika Jackson MD [address] [place] [phone] documented as of this encounter Visit Diagnoses Not on filedocumented in this encounter Care Teams Dried Yeast Supervisor Relationship Specialty Start Date End Date Vikash Massey MD [address] [place] [address] PCP - General Internal Medicine 06/27/20 documented as of this encounter
--- OUTSIDE RECORDS SUMMARY | 2023-12-06 11:00 | XMS_ITS | Encounter Summary ---
Author Organization [facility] [place] [address] Care Team Providers Care Coper Hand Name Role Phone Vikash Massey MD Primary Care Provider [phone] Encounter Details Date Type Department Care Team (Latest Contact Info) Description 12/06/2023 11:00 AM EDT Hospital Encounter TH HISTORIC [...] Progress Notes * Historical, Notes Results - 12/06/2023 11:00 AM EDT 1105 Argenis arrives for day 15, cycle 28 today. She arrives ambulatory with her walker. She is feeling well, describes good energy. She reports her is doing well and continues to make good progress. Labs are reviewed, does not need retacrit. CO2 also improved. Took premeds, taking water and saltines, call milian in reach. 1125 reading, no distress 1215 velcade administered without incident into left side of abdomen. Left unit ambulatory. Did noteat lunch, will eat at home. She is off next week from treatment. And will resume treatment on 12/20/23 documented in this encounter Plan of Treatment Upcoming Encounters Date Type Department Care Team (Late st Contact Info) Description 01/29/2025 11:00 AM EDT Appointment [address] [phone] 02/05/2025 11:00 AM EDT Appointment [facility] [address] [place] [phone] 03/19/2025 10:30 AM EST Office Visit [facility] Hematology Oncology [address] [place] [phone] Chika Vee MD [address] [place] [address] documented as of this encounter Procedures Procedure Name Priority Date/Time Associated Diagnosis Comments ..MISCELLANEOUS REFERENCE LAB TEST 12/06/2023 ..MISCELLANEOUS REFERENCE LAB TEST 12/06/2023 documented in this encounter Results * Miscellaneous reference lab test (12/06/2023) us Provider Onbase MD LAB BLOOD ORDERABLES Final Re sult * Miscellaneous reference lab test (12/06/2023) us Provider Onbase MD LAB BLOOD ORDERABLES Final Re sult documented in this encounter Visit Diagnoses Diagnosis Multiple myeloma not having achieved remission (CMS/[facility] V24, CMS/[facility] V28) documented in this encounter Care Teams Coper Hand Relationship Specialty Start Date End Date Vikash Massey MD [address] [place] [address] PCP - General Internal Medicine 06/27/20 documented as of this encounter
--- OUTSIDE RECORDS SUMMARY | 2023-12-20 10:43 | XMS_ITS | Encounter Summary ---
Author Organization [facility] [place] [address] Care Team Providers Care Print Inspector Name Role Phone Vikash Massey MD Primary Care Provider Encounter Details Date Type Department Care Team (Late st Contact Info) Description 12/20/2023 10:43 AM EDT Hospital Encounter TH HISTORIC ENCOUNTERS [...] Progress Notes * Historical, Notes Results - 12/20/2023 11:00 AM EDT Argenis arrives today ambulatory for cycle 29 day 1 for treatment. She is doing well and denies any changes to her health or medications. Labs are reviewed and with ing range for treatment. No retacritneeded. Labs drawn today, for q 4 weeks assessment, from left hand. Argenis reports thins are going well at home and her continues to make good rehab progress. 1209 took lunch and tolerated well 1300 treatment complete without incident. darzalex administered into right side of abdomen,and bortezomib into left side. Left unit ambulatory, next appointment verified. documented in this encounter Plan of Treatment Upcoming Encounters Date Type Department Care Team (Late st Contact Info) Description 01/29/2025 11:00 AM EDT Appointment [facility] [address] [place] [phone] 02/05/2025 11:00 AM EDT Appointment [address] [address] 03/19/2025 10:30 AM EST Office Visit [facility] Hematology Oncology [address] [place] [phone] Sarbjit-Chika Jackson MD [address] [place] [address] documented as of this encounter Visit Diagnoses Not on filedocumented in this encounter Care Teams Print Inspector Relationship Specialty Start Date End Date Vikash Massey MD [address] [place] [address] PCP - General Internal Medicine 06/27/20 documented as of this encounter
--- OUTSIDE RECORDS SUMMARY | 2023-12-30 09:00 | XMS_ITS ---
Author [facility] Address [address] [place] [address] Care Team Providers Care Emergency Worker Name Role Phone Vikash Massey MD Primary Care Provider Unavail Viky Dwyer Unavailable [phone] Encounters Encounter Location Date Provider Diagnosis [address] [address] 12/30/2023 Viky Yoder Plan Of Treatment Next Appt Details Provider Name:Viky wheeler, 03/22/2025 03:30:00 PM, [address] [place] [address], [phone], Progress Notes * Argenis DOWNS MDOB: [birth year] (84 yo F)Acc No.[id number]:12/30/2023 Progress Note Patient: Gagandeep GUPTA Argenis Aguirre Provider: Kelly Yoder DPM :1940 A ge:83 Y S ex:Female Date:12/30/2023 Address:[address] [place] [phone] Pcp:Vikash Massey MD Subjective: * Chief Complaints: * * Medical History: Objective: * Vitals: Assessment: Plan: * Treatment: * Images: * The named appointment provid er may or may not be the originator of this progress note, and it is not deemed complete until electronically signed by the appointment provider. Sign off status: Pending * Provider: Kelly Yoder DPM Date: 0 12/30/2023 Generated for Maddie Donaldson/Stephen on: 05:00 PM EDT
--- OUTSIDE RECORDS SUMMARY | 2024-01-17 10:15 | XMS_ITS | Encounter Summary ---
Author Organization [facility] [place] [address] Care Team Providers Care Gill Net Stringer Name Role Phone Vikash Massey MD Primary Care Provider [phone] Encounter Details Date Type Department Care Team (Late st Contact Info) Description 01/17/2024 10:15 AM EDT Hospital Encounter TH HISTORIC ENCOUNTERS [facility] Sarbjit-Chika Jackson MD [address] [place] [phone] Social History Tobacco Use Types Packs/Day Years [...] AM EST documented as of this encounter Plan of Treatment Upcoming Encounters Date Type Department Care Team (Late st Contact Info) Description 01/29/2025 11:00 AM EDT Appointment [facility] [address] [place] [phone] 02/05/2025 11:00 AM EDT Appointment [facility] [address] [place] [phone] 03/19/2025 10:30 AM EST Office Visit [facility] Hematology Oncology [address] [place] [phone] Chika Vee MD [address] [place] [phone] documented as of this encounter Visit Diagnoses Not on filedocumented in this encounter Care Teams Gill Net Stringer Relationship Specialty Start Date End Date Vikash Massey MD [address] [place] [address] PCP - General Internal Medicine 06/27/20 documented as of this encounter
--- OUTSIDE RECORDS SUMMARY | 2024-01-17 10:45 | XMS_ITS | Encounter Summary ---
Author Organization [facility] [facility] [place] [address] Care Team Providers Care Car Hop Name Role Phone Vikash Massey MD Primary Care Provider [phone] Encounter Details Date Type Department Care Team (Latest Contact Info) Description 01/17/2024 10:45 AM EDT Hospital Encounter TH HISTORIC [...] - - Weight 87.5 kg (192 lb 12.8 oz) 024 10:27 AM EDT Height 163.8 cm (5' 4.5 ) 01/17/2024 10 :27 AM EDT Body Mass Index 32.58 01/17/2024 10:27 AM EDT documented in this encounter Progress Notes * Historical, Notes Results - 01/17/2024 10:45 AM EDT Argenis arrives for cycle 30, day 1 today. She arrives after office visit with Dr. Jackson. Plan of carereveiwed, no changes needed. Labs are reviewed and within range for treatment. Hgb has dropped to 10.2, still not low enough for retacrit. Will continue to monitor. Premedications given and call bellin reach. 1215 ate lunch and tolerated well, q 4 weeks labs drawn 1315 treatment complete without incident, velcade administered into left side of abdomen and darzalex into right. Next appointments verified, documented in this encounter Plan of Treatment Upcoming Encounters Date Type Department Care Team (Late st Contact Info) Description 01/29/2025 11:00 AM EDT Appointment [facility] [address] [place] [phone] 02/05/2025 11:00 AM EDT Appointment [address] [phone] 03/19/2025 10:30 AM EST Office Visit [facility] Hematology Oncology [address] [place] [phone] Sarbjit-Chika Jackson MD [address] [place] [phone] documented as of this encounter Procedures Procedure Name Priority Date/Time Associated Diagnosis Comments ..MISCELLANEOUS REFERENCE LAB TEST 01/17/2024 documented in this encounter Results * Miscellaneous reference lab test (01/17/2024) us Provider Onbase MD LAB BLOOD ORDERABLES Final Re sult documented in this encounter Visit Diagnoses Diagnosis Multiple myeloma not having achieved remission (CMS/HCC V24, CMS/HCC V28) documented in this encounter Care Teams Car Hop Relationship Specialty Start Date End Date Vikash Massey MD [address] [place] [address] PCP - General Internal Medicine 06/27/20 documented as of this encounter
--- OUTSIDE RECORDS SUMMARY | 2024-01-24 11:00 | XMS_ITS | Encounter Summary ---
Author Organization [facility] [place] [address] Care Team Providers Care Office Clerk Routine Name Role Phone Vikash Massey MD Primary Care Provider [phone] Encounter Details Date Type Department Care Team (Latest Contact Info) Description 01/24/2024 11:00 AM EDT Hospital Encounter TH HISTORIC [...] Progress Notes * Historical, Notes Results - 01/24/2024 11:00 AM EDT Argenis arrives for cycle 30, day 8 of treatment today. She is feeling much better, and has fully recovered from her cold. Labs are reviewed and within range for treatment. hgb 10.4, no retacrit needed. snacks and drinks provided. Call milian in reach. 1210 treatment complete without incident. velcade administered into right side of abdomen without incident. Left unit ambulatory, next appointment confirmed, documented in this encounter Plan of Treatment Upcoming Encounters Date Type Department Care Team (Late st Contact Info) Description 01/29/2025 11:00 AM EDT Appointment [facility] [address] [place] [phone] 02/05/2025 11:00 AM EDT Appointment [facility] [address] [place] [phone] 03/19/2025 10:30 AM EST Office Visit [facility] Hematology Oncology [address] [place] [phone] Chika Vee MD [address] [place] [phone] documented as of this encounter Procedures Procedure Name Priority Date/Time Associated Diagnosis Comments HISTORICAL IMAGING SCAN RESULT 01/24/2024 documented in this encounter Results * HISTORICAL IMAGING SCAN RESULT (01/24/2024) Anatomical Region Laterality Modality Ultrasound us Provider Onbase MD MUJICA US PROCEDURES Final Resul t documented in this encounter Visit Diagnoses Diagnosis Multiple myeloma not having achieved remission (CMS/HCC V24, CMS/HCC V28) documented in this encounter Care Teams Office Clerk Routine Relationship Specialty Start Date End Date Vikash Massey MD [address] [place] [address] PCP - General Internal Medicine 06/27/20 documented as of this encounter
--- OUTSIDE RECORDS SUMMARY | 2024-01-31 11:00 | XMS_ITS | Encounter Summary ---
Author Organization [facility] [place] [address] Care Team Providers Care Letter Of Credit Clerk Name Role Phone Vikash Massey MD Primary Care Provider [phone] Encounter Details Date Type Department Care Team (Latest Contact Info) Description 01/31/2024 11:00 AM EDT Hospital Encounter TH HISTORIC [...] - Inhaled Oxygen Concentration - - Weight 88.5 kg (195 lb) 01/31/2024 11:00 AM EDT Height 163.8 cm (5' 4.5 ) 01/17/2024 10:27 AM ED T Body Mass Index 32.95 01/17/2024 10:27 AM EDT documented in this encounter Progress Notes * Historical, Notes Results - 01/31/2024 11:00 AM EDT Argenis arrives ambulatory with her walker for cycle 30 day 15 of treatment. Labs are reviewed and within range for treatment. HGB 10.2, will continue to hold off on retacrit. She is feeling well, but is reports that h er is currently admitted with infections. Listening and support provided. Premedications administered. 1230 ate lunch nd tolerated well. 1300 treatment complete, left unit ambulatory. Next appointments reviewed. documented in this encounter Plan of Treatment Upcoming Encounters Date Type Department Care Team (Late st Contact Info) Description 01/29/2025 11:00 AM EDT Appointment [facility] [address] [place] [phone] 02/05/2025 11:00 AM EDT Appointment [facility] [address] [place] [phone] 03/19/2025 10:30 AM EST Office Visit [facility] Hematology Oncology [address] [place] [phone] Chika Vee MD [address] [place] [phone] documented as of this encounter Procedures Procedure Name Priority Date/Time Associated Diagnosis Comments ..MISCELLANEOUS REFERENCE LAB TEST 01/31/2024 documented in this encounter Results * Miscellaneous reference lab test (01/31/2024) us Provider Onbase LAB BLOOD ORDERABLES Final Re sult documented in this encounter Visit Diagnoses Diagnosis Multiple myeloma not having achieved remission (CMS/HCC V24, CMS/HCC V28) documented in this encounter Care Teams Letter Of Credit Clerk Relationship Specialty Start Date End Date Vikash Massey MD [address] [place] [address] PCP - General Internal Medicine 06/27/20 documented as of this encounter
--- OUTSIDE RECORDS SUMMARY | 2024-02-14 11:00 | XMS_ITS | Encounter Summary ---
Author Organization [facility] [place] [address] Care Team Providers Care Oxygen Plant Operator Name Role Phone Vikash Massey MD Primary Care Provider [phone] Encounter Details Date Type Department Care Team (Latest Contact Info) Description 02/14/2024 11:00 AM EDT Hospital Encounter TH HISTORIC [...] Progress Notes * Historical, Notes Results - 02/14/2024 11:00 AM EDT Argenis arrives for cycle 31 day 1 of treatment today. She is feeling better than yesterday, as she has another upper respiratiory infcection for which she is taking amoxicillan. She is coughing, but much less than yesterday. Labs reviewed, HGB within range. and q 4 week labs drawn easily. Snacks provided, call milian in reach. 1230 resting, 1330 treatment complete, darzalex injected into right side of abdomen and velcade into left. Left unti ambualtory. documented in this encounter Plan of Treatment Upcoming Encounters Date Type Department Care Team (Late st Contact Info) Description 01/29/2025 11:00 AM EDT Appointment [facility] [address] [place] [phone] 02/05/2025 11:00 AM EDT Appointment [facility] [address] [place] [phone] 03/19/2025 10:30 AM EST Office Visit [facility] Hematology Oncology [address] [place] [phone] Sarbjit-Chika Jackson MD [address] [place] [phone] documented as of this encounter Procedures Procedure Name Priority Date/Time Associated Diagnosis Comments ..MISCELLANEOUS REFERENCE LAB TEST 02/14/2024 documented in this encounter Results * Miscellaneous reference lab test (02/14/2024) us Provider Onbase MD LAB BLOOD ORDERABLES Final Re sult documented in this encounter Visit Diagnoses Diagnosis Multiple myeloma not having achieved remission (CMS/HCC V24, CMS/HCC V28) documented in this encounter Care Teams Oxygen Plant Operator Relationship Specialty Start Date End Date Vikash Massey MD [address] [place] [address] PCP - General Internal Medicine 06/27/20 documented as of this encounter
--- OUTSIDE RECORDS SUMMARY | 2024-06-16 10:30 | XMS_ITS ---
Author Organization [facility] Address [address] [place] [address] Care Team Providers Care Labor Economics Professor Name Role Phone Vikash Massey MD Primary Care Provider Unavail able Viky Yoder Unavailable [phone] Renaldo Bello [phone] Encounters Encounter Location Date Provider Diagnosis [address] [address] 06/16/2024 Renaldo Bello Plan Of Treatment Next Appt Details Provider Name:Viky wheeler, 03/22/2025 03:30:00 PM, [address] [place] [address], [address], Progress Notes * Argenis DOWNS MDOB: [birth year] (84 yo F)Acc No.[id number]:06/16/2024 Progress Note Patient: Gagandeep GUPTA Argenis Aguirre Provider: Carla Bello D.P.M. :1940 A ge:83 Y S ex:Female Date:06/16/2024 Address:[address] [place] [address] Pcp:Vikash Massey MD Subjective: * Chief Complaints: * * Medical History: Objective: * Vitals: Assessment: Plan: * Treatment: * Images: * The named appointment provid er may or may not be the originator of this progress note, and it is not deemed complete until electronically signed by the appointment provider. Sign off status: Pending * Provider: Sylvia TejedaPElian Date: 0 06/16/2024 Generated for Maddie bradford/Oscar/Stephen on: 04:59 PM EDT
--- OUTSIDE RECORDS SUMMARY | 2025-01-22 11:29 | XMS_ITS | Encounter Summary ---
Author Organization [facility] Address [address] [place] [address] Care Team Providers Care Preflight Inspector Name Role Phone Vikash Massey MD Primary Care Provider [phone] Reason for Visit * Episode Based Medications (Routine) - Authorized Specialty Diagnoses / Procedures Referred By Contac t Referred To Contact Diagnoses Multiple myeloma not having achieved remission (CMS/HCC V24, CMS/HCC V28) Hypogammaglobulinemia (CMS/HCC V24) Chika Vee MD [address] [place] [address] Phone: tel: fax: [facility] [address] [place] [address] Phone: tel: fax: Referral ID Status Reason Start Date Expiration Date V isits Requested Visits Authorized [id number] Authorized 04/03/2024 04/03/2025 1 24 Encounter Details Date Type Department Care Team (Latest Contact Info) Description 01/22/2025 11:29 AM EDT - 01/22/2025 11:59 PM EDT Hospital Encounter [facility] [address] [place] [phone] Chika Vee MD [address] [place] [address] Multiple myeloma not having achieved remission ([facility] V24, [facility] V28) (Primary Dx) Discharge Disposition: Home or Self [...] Sign Reading Time Taken Comments Blood Pressure 138/73 01/22/2025 11:56 AM EDT Pulse 87 01/22/2025 11:56 AM EDT Temperature 36.8 C (98.2 F) 01/22/2025 11:56 AM EDT Respiratory Rate - - Oxygen Saturation 96% 01/22/2025 11:56 AM EDT Inhaled Oxygen Concentration - - Weight 81.7 kg (180 lb 3.2 oz) 01/22/2025 11:56 AM EDT Height - - Body Mass Index 30.45 11/27/2024 10:50 AM EDT documented in this encounter Medications at Time of Discharge cholecalciferol (VITAMIN D-3) 25 mcg (1,000 unit) capsule Take by mouth. dexAMETHasone (DECADRON) 4 mg tabletIndications:m ultiple myeloma Take 2 tablets (8 mg total) by mouth every 7 (seven) days. Once a month on week off of treatmentTake 2 tablets (8 mg total) by mouth. Once a month on week off of treatment 30 tablet 11 5 01/23/20 26 famotidine (PEPCID) 20 mg tablet TAKE 1 TABLET BY MOUTH TWICE A DAY 180 tablet 5 levothyroxine (SYNTHROID, LEVOTHROID) 50 mcg tablet TAKE 1 TAB DAILY & TAKE EXTRA PILL ON Saturday 2 ondansetron ODT (ZOFRAN-ODT) 4 mg disintegrating tablet TAKE 1 TABLET BY MOUTH EVERY 8 HOURS IF NEEDED FOR NAUSEA OR VOMITING. 20 tablet 5 pomalidomide (POMALYST) 2 mg capsule Take 1 capsule (2 mg total) by mouth 1 (one) time each day Swallow whole with water; do not break, chew, or open the capsules. 14 capsule 5 simvastatin (ZOCOR) 10 mg tablet Take 2 tablets (20 mg total) by mouth. 2 sodium bicarbonate 650 mg tablet Take 1 tablet (650 mg total) by mouth 4 (four) times a day. 2 tablets in AM, 2 tablets in PM 3 valACYclovir (VALTREX) 500 mg tablet Take 1 tablet (500 mg total) by mouth 1 (one) time each day. 90 tablet 1 5 warfarin (COUMADIN) 5 mg tablet 6 mg. 2 documented as of this encounter Discharge Disposition Disposition Code Departure Means Destination Home or Self Care documented in this encounter Progress Notes * Gissell Leos RN - 01/22/2025 11:30 AM EDT Argenis arrives ambulatory with walker for cycle 23 day 1 of treatment. She is feeling well and just arrived after visit with Dr. Jackson She reports good energy. She will resume her pomalidomide. Labs are reviewed and within range for treatment. Snacks provided 1215 premeds administered and call milian in reach. 1220 ate lunch and tolerated well. 1315 treatment complete without incident. Darzalex administered into right side of abdomen and velcade administered into left side of abdomen without incident. Left unit ambulatory with misty, next appointment provided. documented in this encounter Plan of Treatment Upcoming Encounters Date Type Department Care Team (Late st Contact Info) Description 01/29/2025 11:00 AM EDT Appointment [facility] [address] [place] [phone] 02/05/2025 11:00 AM EDT Appointment [facility] [address] [place] [phone] 03/19/2025 10:30 AM EST Office Visit [facility] H[facility]ology Oncology [address] [place] [phone] Chika Vee MD [address] [place] [address] documented as of this encounter Visit Diagnoses Diagnosis Multiple myeloma not having achieved remission (CMS/HCC V24, CMS/HCC V28)- Primary documented in this encounter Administered Medications Inactive Administered Medications - up to 3 most recent administrations Medication Order MAR Action Action Date Dose Rate Site acetaminophen (TYLENOL) tablet 650 mg 650 mg, oral, Once, On Sat01/22/25 at 1215, For 1 doseIndications:Multiple myeloma not having achieved remission (CMS/HCC V24, CMS/HCC V28) Given 01/22/2025 11:56 AM EDT 650 mg bortezomib (VELCADE) chemo injection 2.45 mg 2.45 mg (rounded from 2.444 mg = 1.3 mg/m2 1.88 m2), subcutaneous, Once, On Sat01/22/25 at 1215, For 1 dose, FOR SUBCUTANEOUS INJECTION. Bortezomib is an irritant. Antineoplastic Hazardous Medication - Double pair of ASTM standard D6978 certified gloves - Hazardous gown - Eye/face protection if liquid that could splash - CSTD required when possibleIndications:Mult iple myeloma not having achieved remission (CMS/HCC V24, CMS/HCC V28) Given 01/22/2025 1:04 PM EDT 2.45 mg Left Lower Abdomen daratumumab-hyaluronidas e-fihj (DARZALEX FASPRO) injection 1,800 mg 1,800 mg, subcutaneous, at 300 mL/hr, Administer over 3 Minutes, Once, On Sat01/22/25 at 1315, For 1 dose, Inject over 3-5 minutes into the subcutaneous tissue of the abdomen.Indications:Mult iple myeloma not having achieved remission (CMS/HCC V24, CMS/HCC V28) Given 01/22/2025 1:03 PM EDT 1,800 mg 300 mL/hr Right Lower Abdomen dexAMETHasone (DECADRON) tablet 8 mg 8 mg, oral, Once, On Sat01/22/25 at 1215, For 1 dose, Administer 30 minutes prior to chemotherapy.Indications :Multiple myeloma not having achieved remission (CMS/HCC V24, [facility] V28) Given 01/22/2025 11:56 AM EDT 8 mg diphenhydrAMINE (BENADRYL) capsule 25 mg 25 mg, oral, Once, On Sat01/22/25 at 1215, For 1 doseIndications:Multiple myeloma not having achieved remission ([facility] V24, [facility] V28) Given 01/22/2025 11:56 AM EDT 25 mg ondansetron ODT (ZOFRAN-ODT) disintegrating tablet 16 mg 16 mg, oral, Once, On Sat01/22/25 at 1215, For 1 doseIndications:Multiple myeloma not having achieved remission ([facility] V24, [facility] V28) Given 01/22/2025 11:56 AM EDT 16 mg documented in this encounter Care Teams Preflight Inspector Relationship Specialty Start Date End Date Vikash Massey MD [address] [place] [id number] PCP - General Internal Medicine 06/27/20 documented as of this encounter
--- NOTE | 2025-01-28 13:42 | HO.NEPHOV_ITS ---
Vital Signs 01/28/25 13:44 Height 5 ft 5 in Weight 181 lb 2 oz BMI 30.1 BP 148/80 H Blood Pressure Location Lt brachial Position Sitting Pulse 78 Pulse Source Pulse Oximeter Pulse Oximetry (%) 97 Oxygen Delivery Method Room Air Intake Visit Reasons: 3mnth w labs-LVM Prestidigitator Required: No Accompanied by: Self / Same As Patient Allergies Penicillins Allergy (Verified 01/28/25 13:44) Unknown HPI Comments Details: Argenis is a 82-year-old female whom I had the privilege of seeing in follow-up. She had acute kidney injury from multiple myeloma and had been on dialysis. Her GFR had improved with good urine output and subsequently her dialysis was discontinued. She gets chemotherapy once a week from Dr. Jackson. Her anemia is managed by her furnace keeper . She does not have any new bone pain, back pain, high serum calcium. Her GFR has improved to 18 mls/mt. She denies any chest pain, shortness of breath, nausea vomiting, diarrhea, orthostatic symptoms or pedal edema. Her appetite is good and her energy levels are acceptable. She had no new antibiotic intake, hospitalizations or any infections recently. She does not have any dysuria, hematuria, flank pain. She has been having intermittent incontinence. She feels stable otherwise [facility] Medical History H/O malignant neoplasm of breast Multiple myeloma History of hemodialysis Anemia of chronic disease Metabolic acidosis Acute kidney injury Chronic kidney disease, stage 4 (severe) Social History Alcohol intake: never Patient Tobacco Use Status: Never used Tobacco Review of Systems Const All systems reviewed & are unremarkable except as noted in HPI and below Physical Exam Vital Signs: Last Vital Signs Pulse 78 01/28/25 13:44 BP 148/80 H 01/28/25 13:44 Pulse Ox 97 01/28/25 13:44 Oxygen Delivery Method Room Air 01/28/25 13:44 BMI result Body Mass Index 30.1 Const General: comfortable and no acute distress Orientation/consciousness: patient oriented x3 HEENT Head: Yes normocephalic Mouth: Normal oral and palatal mucosa present Eyes EOM: EOMs intact bilaterally Neck Neck: Yes supple Resp Auscultation: clear to auscultation bilaterally Cardio Jugular venous distension: no JVD Rate: regular rate GI Palpation (GI): Soft to palpation Auscultation: normal bowel sounds General: Yes no CVA tenderness Back/Spine/Pelvis Back: no CVA tenderness Skin General skin exam: no rashes or lesions noted Neuro General: patient oriented x3 and moves all extremities Extrem General: Yes no pedal edema Assessment & Plan Assessment & Plan (1) Chronic kidney disease, stage 4 (severe): Code(s): N18.4 - Chronic kidney disease, stage 4 (severe) Category: Medical (2) Metabolic acidosis: Code(s): E87.20 - Acidosis, unspecified Category: Medical (3) Anemia of chronic disease: Code(s): D63.8 - Anemia in other chronic diseases classified elsewhere Category: Medical Plan Argenis has chronic kidney disease stage 4. She has multiple myeloma and had been getting chemotherapy. She is closely followed by her oncologist. Her GFR has been stable ever since she had come off hemodialysis. Her urine output is go od. Her volume status is acceptable. Her serum potassium is normal . She should continue NaHCO3 650 mg 2 tablets AM and 2 tablet PM. She has anemia chronic disease and is managed by her oncologist. I have ordered follow-up blood work. She should maintain good hydration. She should avoid nonsteroidal inflammatory medications as well as Bactrim if possible. She may need to see a Urologist. I did not make any medication changes at this office visit. All her questions were answered. Follow-up given Orders: Orders Blood Urea Nitrogen 3 Months D63.8 - Anemia in other chronic diseases classified elsewhere, E87.20 - Acidosis, unspecified, N18.4 - Chronic kidney disease, stage 4 (severe) Creatinine 3 Months D63.8 - Anemia in other chronic diseases classified elsewhere, E87.20 - Acidosis, unspecified, N18.4 - Chronic kidney disease, stage 4 (severe) Electrolytes 3 Months D63.8 - Anemia in other chronic diseases classified elsewhere, E87.20 - Acidosis, unspecified, N18.4 - Chronic kidney disease, stage 4 (severe) Calcium 3 Months D63.8 - Anemia in other chronic diseases classified elsewhere, E87.20 - Acidosis, unspecified, N18.4 - Chronic kidney disease, stage 4 (severe) Phosphorus 3 Months D63.8 - Anemia in other chronic diseases classified elsewhere, E87.20 - Acidosis, unspecified, N18.4 - Chronic kidney disease, stage 4 (severe) Coding Level of Care Code Est Pt Level 4 (94266) Diagnoses Chronic kidney disease, stage 4 (severe) N18.4 Metabolic acidosis E87.20 Anemia of chronic disease D63.8
[2025-01-28 13:44] VITALS: BP 148/80; PULSE 78; O2SAT 97; BMI 30.1
--- OUTSIDE RECORDS SUMMARY | 2025-01-28 16:58 | XMS_ITS | Patient Health Record ---
[facility] Address [address] [place] [address] Care Team Providers Care Ball Mill Operator Name Role Phone Shilpa THOMAS, Vikash Primary Care Provider Unavail able Viky Yoder Unavailable [phone] Renaldo Bello Unavailable [phone] Allergies Allergen (clinical drug ingredient) Drug/Non Drug Allergy documented on EMR Reaction Allergy Type Onset Date Status Penicillin Unknown Drug Allergy Active Reason For Referral No Information Medications Medication SIG (Take, Route, Frequency, Duration) Notes Start Date End Date Status Calcium + D 600 mg N ot-Taking Glucosamine Chondr Complex 500 mg Not-Taking Aspirin 81 mg Not-Ta darlene Sodium Bicarbonate A ctive Famotidine 20 MG 1 tablet at bedtime as needed Orally Once a day; Duration: 30 day(s) Active Centrum Silver Activ e Levothyroxine Sodium 50 MCG 1 tablet on an empty stomach in the morning Orally Once a day Active amLODIPine Besy-Benazepril HCl 2.5-10 MG as directed Orally Not-Taki ng valACYclovir HCl 500 MG 1 tablet Orally Once a day Active Warfarin Sodium 6 MG 1 tablet Orally Onc e a day Active Simvastatin Active Immunizations Vaccine Route Administration Date Status Comme nts Influenza Unknown 02/05/2024 Administered COVID-19 Pfizer BioNTech Vaccine Unknown 01/11/2021 Administered [...] W/U Status Risk Notes Problem Plantar wart (30055884) Plantar wart (B07.0) Active confirmed Problem Localized, primary osteoarthritis of the ankle and/or foot (721030484) Primary osteoarthrit is, 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 confirmed Problem Acquired hammer toe of left foot (0087677907958758) Other hammer toe(s) (acquired), left foot (M20.42) Active confirmed Vital Signs Blood pressure diastolic 80 mm Hg 01/14/2025 Height 5 ft 5 in in 01/14/2025 Blood pressure systolic 131 mm Hg 01/14/2025 Weight 178 lbs 01/14/2025 BMI 29.62 kg/m2 01/14/2025 Procedures Procedure Date Ordered Date Performed Result Body Sit e 32735-VLGDPXM NAIL, 6 OR MORE 03/31/2024 N/A Encounters Encounter Location Date Provider Diagnosis [address] [address] 03/31/2024 Renaldo Bello Tinea unguium B35.1 ; Pain in right toe(s) M79.674 and Pain in left toe(s) M79.[address] [address] 06/15/2024 Viky Yoder Tinea unguium B35.1 ; Pain in right toe(s) M79.674 ; Pain in left toe(s) M79.675 ; Right foot pain M79.671 ; Plantar wart B07.0 and Xerosis of skin L85.[address] [address] 08/20/2024 Viky Perica Tinea unguium B35.1 ; Pain in right toe(s) M79.674 ; Pain in left toe(s) M79.675 ; Right foot pain M79.671 and Plantar wart B07.[address] [address] 11/02/2024 Viky Perica Plantar wart B07.0 ; Other hammer toe(s) (acquired), left foot M20.42 ; Tinea unguium B35.1 ; Pain in right toe(s) M79.674 ; Pain in left toe(s) M79.675 and Right foot pain M79.[address] [address] 01/14/2025 Viky Perica Plantar wart B07.0 ; Other hammer toe(s) (acquired), left foot M20.42 ; Tinea unguium B35.1 ; Pain in right toe(s) M79.674 ; Pain in left toe(s) M79.675 and Pain in left foot M79.672 [facility] [address] 04/27/2024 Renaldo Bello [facility] [address] [address] 08/20/2024 Renaldo Bello [facility] [address] 11/02/2024 Viky Yoder [facility] [address] 11/02/2024 Viky Yoder Assessments Encounter Date Diagnosis (ICD Code) Assessment Notes Treatment Notes Treatment Clinical Notes Section Notes 03/31/2024 Tinea unguium (ICD-10 - B35.1) 03/31/2024 Pain in right toe(s) (ICD-10 - M79.674) 06/15/2024 Tinea unguium (ICD-10 - B35.1) 08/20/2024 Tinea unguium (ICD-10 - B35.1) 11/02/2024 Plantar wart (ICD-10 - B07.0) 11/02/2024 Other hammer toe(s) (acquired), left foot (ICD-10 - M20.42) 01/14/2025 Plantar wart (ICD-10 - B07.0) 01/14/2025 Other hammer toe(s) (acquired), left foot (ICD-10 - M20.42) 01/14/2025 Tinea unguium (ICD-10 - B35.1) 11/02/2024 Tinea unguium (ICD-10 - B35.1) 08/20/2024 Pain in right toe(s) (ICD-10 - M79.674) 06/15/2024 Pain in right toe(s) (ICD-10 - M79.674) 03/31/2024 Pain in left toe(s) (ICD-10 - M79.675) 06/15/2024 Pain in left toe(s) (ICD-10 - M79.675) 08/20/2024 Pain in left toe(s) (ICD-10 - M79.675) 11/02/2024 Pain in right toe(s) (ICD-10 - M79.674) 01/14/2025 Pain in right toe(s) (ICD-10 - M79.674) 01/14/2025 Pain in left toe(s) (ICD-10 - M79.675) 08/20/2024 Right foot pain (ICD-10 - M79.671) 11/02/2024 Pain in left toe(s) (ICD-10 - M79.675) 06/15/2024 Right foot pain (ICD-10 - M79.671) 06/15/2024 Plantar wart (ICD-10 - B07.0) 08/20/2024 Plantar wart (ICD-10 - B07.0) 11/02/2024 Right foot pain (ICD-10 - M79.671) 01/14/2025 Pain in left foot (ICD-10 - M79.672) 06/15/2024 Xerosis of skin (ICD-10 - L85.3) 03/31/2024 Other Plan Of Treatment Pending Test Test Name Order Date X ray : Foot, right 3V 03/24/2013 [id number] NAIL, 6 OR MORE 01/16/2024 60091-ARSORPR NAIL, 6 OR MORE 03/31/2024 32080, J0702- INJECT or DRAIN, JOINT/BUR SA 09/24/2017 71468, J0702- INJECT or DRAIN, JOINT/BUR SA 10/27/2019 53412, J0702- INJECT or DRAIN, JOINT/BUR SA 04/28/2021 08193, J0702- Neuroma/Injection 03/24/20 13 80757, J0702- Neuroma/Injection 12/25/19 14 Next Appt Details Provider Name:Viky wheeler, 03/22/2025 03:30:00 PM, [address] [place] [address], [place], [address], Insurance Providers Payer Name Payer Address Payer Phone Subscriber Number Group Number Insured Name Patient Relationship to Insured Coverage Start Date Coverage End Date Medicare National Govt [facility] [address] [place] [address] [id number] Argenis Nova Self - patient is the insured [facility] [address] [place] [address] [phone] [id number] Argenis Nova Self - patient is [...]
--- OUTSIDE RECORDS SUMMARY | 2025-01-28 17:01 | XMS_ITS | Clinical Summary ---
Author Organization [facility] Address [address] [place] [address] [place], [place] [id number] Phone Care Team Providers Care Cook Manager Name Role Phone Vikash Massey MD Primary Care Provider [phone] Social History Tobacco Use Types Packs/Day Years Used Date Smoking Tobacco: Never Assessed Education Answer Date Recorded Are you interested in more education? Not on lucero e 08/11/2022 Are you concerned about learning? Not on file 08/11/2022 No 08/11/2022 No 08/11/2022 Digital Access Answer Date Recorded No 09/11/2022 No 09/11/2022 Reliable internet access at home? Not on file 09/11/2022 Device with a working camera? Not on file Comments Unknown Sex and Gender Information Value Date Recorded Sex Assigned at Not on file Legal Sex Female 9:36 AM EDT Gender Identity Not on file Sexual Orientation Not on file Plan of Treatment Not on file Medical Devices Not on file Insurance [facility]IC[facility] MEDIC[facility] PART A & B O MEDICARE PART A & B O MEDICARE PART A & B HMO MEDICARE PART A & B HMO MEDICARE PART A & B MEDICARE PART A & B MEDICARE PART A & B Member Subscriber Plan / Payer (Ef fective 2011-Present) Name:Argenis Nova Member ID:[id number] Relation to Subscriber:Self Name:Argenis Nova Subscriber ID:[id number] Payer ID:[id number] Group ID:Not on file Type:Medicare Address: [place] [id number] HMO Care Teams Cook Manager Relationship Specialty Start Date End Date Vikash Massey MD [address] [place] [id number] PCP - General Internal Medicine 10/11/21 Additional Source Comments The information contained in this document represents components of the legal health record. It is not the complete legal health record.[facility]
--- OUTSIDE RECORDS SUMMARY | 2025-01-28 17:01 | XMS_ITS | Encounter Summary ---
Author Organization [facility] Address [address] [place] [address] Care Team Providers Care Keyboard Action Assembler Name Role Phone Vikash Massey MD Primary Care Provider [phone] Encounter Details Date Type Department Care Team Description 10/06/2021 Social Work [facility] [address] [place] [address] Arturo Schaeffer [facility] Social History Tobacco Use Types Packs/Day Years [...] on filedocumented in this encounter Care Teams Keyboard Action Assembler Relationship Specialty Start Date End Date Vikash Massey MD [address] [address] PCP - General Internal Medicine 10/05/21 documented as of this encounter
--- OUTSIDE RECORDS SUMMARY | 2025-01-28 17:02 | XMS_ITS ---
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) 04/03/2024 Iron deficiency anemia 04/19/2023 Primary osteoarthritis of left knee 05/11/2022 Acute deep vein thrombosis ( DVT) of femoral vein of left lower extremity ([facility] V24, [facility] V28) 04/13/2022 Chemotherapy induced neutropenia ([facility] V24) 1 05/04/2021 Acute renal failure ([facility] V24) 10/20/2021 Anemia in neoplastic disease 10/20/2021 Hypokalemia 10/20/2021 Pulmonary embolus ([facility] V24, [facility] V28) 11/2021 Light chain disease, 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 not having achieved remission ([facility] V24, [facility] V28) 10/03/2021 Current Treatment and Therapy Plans Bortezomib / DexAMETHasone + Daratumumab and hyaluronidase-fihj ( or Daratumumab IV )* Plan Start Date:10/12/2021 Plan Provider:Chika Vee MD Linked Problems Multiple myeloma not having achieved remission ([facility] V24, [facility] V28) Treatment Medications Current Day (Day 8 , Cycle 23 - Planned for 01/29/2025) Next Day (Day 15, Cycle 23 - Planned for 02/05/2025) bortezomib (VELCADE)daratumumab-hyaluron idase-fihj (DARZALEX FASPRO) bortezomib (VELCADE) chemo injection 2.45 mg bortezomib (VELCADE) chemo injection Immune Globulin Intravenous (IGIV) - every 4 weeks* Plan Start Date:04/03/2024 Plan Provider:Chika Vee MD Linked Problems Multiple myeloma not having achieved remission ([facility] V24, [facility] V28)Hypogammaglobulinemia ([facility] V24) Treatment Medications No medications scheduled. Past Treatment and Therapy Plans No past plan information found.
--- OUTSIDE RECORDS SUMMARY | 2025-01-28 17:04 | XMS_ITS | Clinical Summary ---
Author Organization [facility] Address [address] [place] [address] Care Team Providers Care Tariff Clerk Name Role Phone Vikash Massey MD Primary Care Provider [phone] Allergies Active Allergy Reactions Criticality Noted Date [...] 97 02/14/2024 11:00 AM EDT Temperature 36.9 C (98.4 F) 02/14/2024 11:00 AM EDT Respiratory Rate 20 01/03/2024 10:50 AM EDT [...] - PCV) 01/30/2019 01/30/2018 Influenza Vaccine (#1) 2024 , 01/04/2021, 12/22/2019, Additional history exists Hepatitis B Vaccines Completed 08/18/2022, 06/16/2022, 01/23/2022, Additional history exists RSV Ped < 20 months Aged Out No longe r eligible based on patient's age to complete this topic Care Teams Tariff Clerk Relationship Specialty Start Date End Date Vikash Massey MD [address] [address] PCP - General Internal Medicine 10/05/21
--- OUTSIDE RECORDS SUMMARY | 2025-01-28 17:04 | XMS_ITS ---
Author Organization [facility] Address [address] [place] [address] Care Team Providers Care Brazer Resistance Name Role Phone Vikash Massey MD Primary Care Provider [phone] Active Problems Problem Noted Date Diagnosed Date [...] achieved remission 0 10/03/2021 Current Oncology Plans [facility] - OP CycloPHOSphamide [...] Date Treatment Medications Discontinue Reason Plan Provider [facility] EPOETIN SANDRA-EPBX (RETACRIT, EPOGEN) & [facility] FERUMOXYTOL (FERAHEME) IRON REPLETION 3 03/05/2023 albuterol (PROVENTIL)diphenhydrAMI NE (BENADRYL)EPINEPHrineepo etin sandra (PROCRIT)famotidine (PF) (PEPCID)ferumoxytol (FERAHEME) infusionhydrocortisone (SOLU-CORTEF) IVmeperidine (DEMEROL) 25 MG/MLSaline Flush 0.9 %sodium chloride (NS) 0.9 %sodium chloride 0.9% bolus (NS) Change in Level of Care Chika Wyatt MD [facility] EPOETIN SANDRA-EPBX (RETACRIT, EPOGEN) 3 11/09/2022 epoetin alpha-epbx (RETACRIT) Remission Chika Wyatt MD [facility] EPOETIN SANDRA-EPBX (RETACRIT, EPOGEN) 2 04/13/2022 epoetin alpha-epbx (RETACRIT) Remission Chika Wyatt MD [facility] EPOETIN SANDRA (PROCRIT, EPOGEN) 2 12/07/2021 epoetin alpha (PROCRIT) Patient Preference Chika Wyatt MD ONCOLOGY TREATMENT Plan Name Start Date Discontinue Date Treatment Medications Discontinue Reason Plan Provider [facility] OP BORTEZOMIB WEEKLY (2 HRS) 2 10/09/2021 acyclovir (ZOVIRAX)borte zomib (VELCADE)cyclo phosphamide (CYTOXAN)dexam ethasone (DECADRON)Sali ne Flush 0.9 %sodium chloride (NS) 0.9 % Change in Level of Care Chika Wyatt MD 1 of 2 cycles started Radiation Treatments * No radiation treatments are documented for this patient in Psychiatric. Treatments may have been administered in another system. 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
--- OUTSIDE RECORDS SUMMARY | 2025-01-28 17:05 | XMS_ITS | Clinical Summary ---
Author Organization [facility] Address [address] [place] [phone] Phone Care Team Providers Care National Sales Consultant Name Role Phone Vikash Massey MD Primary Care Provider [phone] Allergies Active Allergy Reactions Criticality Noted Date Comments Labetalol 09/18/2024 Penicillins Rash Low 10/06/2021 Medications cholecalciferol (VITAMIN D-3) 25 mcg (1,000 unit) capsule Take by mouth. Activ e levothyroxine (SYNTHROID, LEVOTHROID) 50 mcg tablet TAKE 1 TAB DAILY & TAKE EXTRA PILL ON Saturday 022 Active simvastatin (ZOCOR) 10 mg tablet Take 2 tablets (20 mg total) by mouth. 022 Active sodium bicarbonate 650 mg tablet Take 1 tablet (650 mg total) by mouth 4 (four) times a day. 2 tablets in AM, 2 tablets in PM 023 Active warfarin (COUMADIN) 5 mg tablet 6 mg. 022 Active ondansetron ODT (ZOFRAN-ODT) 4 mg disintegrating tablet TAKE 1 TABLET BY MOUTH EVERY 8 HOURS IF NEEDED FOR NAUSEA OR VOMITING. 20 tablet 025 Active valACYclovir (VALTREX) 500 mg tablet Take 1 tablet (500 mg total) by mouth 1 (one) time each day. 90 tablet 1 025 Active famotidine (PEPCID) 20 mg tablet TAKE 1 TABLET BY MOUTH TWICE A DAY 180 tablet 025 Active dexAMETHasone (DECADRON) 4 mg tabletIndications :multiple myeloma Take 2 tablets (8 mg total) by mouth every 7 (seven) days. Once a month on week off of treatmentTake 2 tablets (8 mg total) by mouth. Once a month on week off of treatment 30 tablet 11 025 2025 Active pomalidomide (POMALYST) 2 mg capsule Take 1 capsule (2 mg total) by mouth 1 (one) time each day Swallow whole with water; do not break, chew, or open the capsules. 14 capsule 025 Active dexAMETHasone (DECADRON) 4 mg tabletIndications :multiple myeloma Take 2 tablets (8 mg total) by mouth. Once a month on week off of treatment 024 2024 Discontinued(R eorder) famotidine (PEPCID) 20 mg tablet TAKE 1 TABLET BY MOUTH TWICE A DAY 180 tablet 025 2024 Discontinued pomalidomide (Pomalyst) 2 mg capsule TAKE 1 CAPSULE BY MOUTH DAILY FOR 14 DAYS, THEN 14 DAYS OFF SWALLOW WHOLE WITH WATER; DO NOT BREAK, CHEW, OR OPEN THE CAPSULES. 14 capsule 025 2024 Discontinued pomalidomide (Pomalyst) 2 mg capsule TAKE 1 CAPSULE BY MOUTH DAILY FOR 14 DAYS, THEN 14 DAYS OFF WITH WATER (DO NOT BREAK, CHEW, OR OPEN) 14 capsule 025 2024 Discontinued(R eorder) Active Problems Problem Noted Date Diagnosed Date COVID-19 04/03/2024 Hypogammaglobulinemia ([facility] V24) 04/03/2024 Iron deficiency anemia 04/19/2023 Primary osteoarthritis of left knee 05/11/2022 Acute deep vein thrombosis ( DVT) of femoral vein of left lower extremity ([facility] V24, [facility] V28) 04/13/2022 Chemotherapy induced neutropenia ([facility] V24) 1 05/04/2021 Acute renal failure ([facility] V24) 10/20/2021 Anemia in neoplastic disease 10/20/2021 Hypokalemia 10/20/2021 Pulmonary embolus ([facility] V24, [facility] V28) 11/2021 Light chain disease, 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 Multiple myeloma not having achieved remission ([facility] V24, [facility] V28) 10/03/2021 Encounters Date Type Department Care Team Description 01/22/2025 11:29 AM EDT - 01/22/2025 11:59 PM EDT Hospital Encounter [facility] [address] [place] [phone] Subramonia-Iy erChika MD Multiple myeloma not having achieved remission ([facility] V24, [facility] V28) (Primary Dx) Discharge Disposition: Home or Self Care 01/22/2025 10:45 AM EDT Office Visit [facility] [address] [place] [phone] Franciscoramonia-Iy Chika victor MD Multiple myeloma not having achieved remission ([facility] V24, [facility] V28) (Primary Dx) 01/08/2025 10:46 AM EDT - 01/08/2025 11:59 PM EDT Hospital Encounter [facility] [address] [place] [phone] Franciscoramonia-Iy Chika victor MD Multiple myeloma not having achieved remission ([facility] V24, [facility] V28) (Primary Dx); 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) Discharge Disposition: Home or Self Care 01/01/2025 10:46 AM EDT - 01/01/2025 11:59 PM EDT Hospital Encounter [facility] [address] [place] [phone] Multiple myeloma not having achieved remission ([facility] V24, [facility] V28) (Primary Dx) Discharge Disposition: Home or Self Care 12/25/2024 10:45 AM EDT - 12/25/2024 11:59 PM EDT Hospital Encounter [facility] [address] [place] [phone] Franciscoramonia-Iy Chika victor MD Multiple myeloma not having achieved remission ([facility] V24, [facility] V28) (Primary Dx) Discharge Disposition: Home or Self Care 12/11/2024 10:47 AM EDT - 12/11/2024 11:59 PM EDT Hospital Encounter [facility] [address] [place] [phone] Franciscoramonia-Iy Chika victor MD Multiple myeloma not having achieved remission ([facility] V24, [facility] V28) (Primary Dx); 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); Light chain disease, 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) Discharge Disposition: Home or Self Care 12/04/2024 10:48 AM EDT - 12/04/2024 11:59 PM EDT Hospital Encounter [facility] [address] [place] [phone] Franciscoramonia-Iy Chika victor MD Multiple myeloma not having achieved remission ([facility] V24, [facility] V28) (Primary Dx) Discharge Disposition: Home or Self Care 11/27/2024 11:00 AM EDT - 11/27/2024 11:59 PM EDT Hospital Encounter [facility] [address] [place] [phone] Multiple myeloma not having achieved remission ([facility] V24, [facility] V28) (Primary Dx) Discharge Disposition: Home or Self Care 11/27/2024 10:45 AM EDT Office Visit [facility] [address] [place] [phone] Subramonia-Iy erChika MD Multiple myeloma not having achieved remission ([facility] V24, [facility] V28) (Primary Dx); Primary osteoarthritis of left knee; Acute renal failure, unspecified acute renal failure type ([facility] V24); Multiple subsegmental pulmonary emboli without acute cor pulmonale ([facility] V24, [facility] V28) 11/23/2024 Telephone [facility] [address] [place] [phone] Subramonia-IChika casey MD 11/23/2024 Telephone [facility] [address] [place] [phone] Chika Little MD 11/13/2024 10:45 AM EDT - 11/13/2024 11:59 PM EDT Hospital Encounter [facility] [address] [place] [phone] Chika Little MD Multiple myeloma not having achieved remission ([facility] V24, [facility] V28) (Primary Dx); 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); Light chain disease, 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) Discharge Disposition: Home or Self Care 11/06/2024 11:00 AM EDT - 11/06/2024 11:59 PM EDT Hospital Encounter [facility] [address] [place] [phone] VishnuIy Chika victor MD Multiple myeloma not having achieved remission ([facility] V24, [facility] V28) (Primary Dx) Discharge Disposition: Home or Self Care 10/30/2024 10:47 AM EDT - 10/30/2024 11:59 PM EDT Hospital Encounter [facility] [address] [place] [phone] VishnuIy Chika victor MD Multiple myeloma not having achieved remission ([facility] V24, [facility] V28) (Primary Dx) Discharge Disposition: Home or Self Care from Last 3 Months Immunizations Immunization Administration Dates Next Due Hepatitis B (Recombivax [...] History Medical History Date Comments Breast cancer (CMS/HCC V24, CMS/HCC V28) DX:Breast cancer (HCC) Disease of thyroid gland [...] F) 01/22/2025 11:56 AM EDT Respiratory Rate 18 01/08/2025 10:59 AM EDT Oxygen Saturation 96% 01/22/2025 11:56 AM EDT Inhaled Oxygen Concentration - - Weight 81.7 kg (180 lb 3.2 oz) 01/22/2025 11:56 AM EDT Height 163.8 cm (5' 4.5 ) 11/27/2024 10:50 AM ED T Body Mass Index 30.45 11/27/2024 10:50 AM EDT Plan of Treatment Upcoming Encounters Date Type Department Care Team (Late st Contact Info) Description 01/29/2025 11:00 AM EDT Appointment [facility] [address] [phone] 02/05/2025 11:00 AM EDT Appointment [facility] [address] [phone] 03/19/2025 10:30 AM EST Office Visit [facility] [address] [place] [phone] Chika Vee MD [address] [place] [phone] Health Maintenance Due Date Last Done Comments DTaP,Tdap,and Td Vaccines (1 - Tdap) 1959 Cholesterol Screening (Lipid Panel) 03/19/2022 Osteoporosis Screening (Bone Density Screening) 03/19/2022 Social Influencers of Health Screening 03/19/2022 Medicare Annual Wellness Visit 04/26/2023 04/26/2022 Depression Screening 04/15/2024 COVID-19 Vaccine (8 - Mixed Product risk season) 2024 05/14/2024, 01/15/2023, 02/21/2022, Additional history exists Influenza Vaccine (#1) 2024 , 01/15/2023, 01/03/2022, Additional history exists Hypertension/CHF/CAD Annual BMP Blood Test 06/26/2025 06/26/2024, 04/24/2024 Falls Risk Assessment 12/25/2025 12/25/2024 Pneumococcal Vaccine: 50+ Years Completed 01/30/2018, 02/22/2016 Zoster Vaccines Completed 04/28/2019, 01/29/2019 Hepatitis B Vaccines Completed 08/18/2022, 06/16/2022, 01/23/2022, Additional history exists RSV Immunization Adult Patients Completed 02/17/2023 HIB Vaccines Aged Out No longer eligi [...] Procedure Name Priority Date/Time Associated Diagnosis Comments CREATININE, URINE, 24H Routine 11:25 AM EDT Acute renal failure, unspecified acute renal failure type (CMS/HCC V24) PROTEIN, TOTAL Routine 01/08/2025 12:00 PM EDT Multiple myeloma not having achieved remission (CMS/HCC V24, CMS/HCC V28) IMMUNOGLOBULIN IGG Routine 01/08/2025 12 :00 PM EDT Multiple myeloma not having achieved remission (CMS/HCC V24, CMS/HCC V28) KAPPA-LAMBDA QUANTITATIVE FREE LIGHT CHAINS Routine 01/08/2025 12:00 PM EDT Multiple myeloma not having achieved remission (CMS/HCC V24, CMS/HCC V28) ID PROTEIN ELECTROPHORETIC FRACTIONATION & QUANTITATION SERUM Routine 12/11/2024 12:42 PM EDT Light chain disease, kappa type (CMS/HCC V24) Multiple myeloma not having achieved remission (CMS/HCC V24, CMS/HCC V28) PROTEIN, TOTAL Routine 12/11/2024 12:42 PM EDT Light chain disease, kappa type (CMS/HCC V24) Multiple myeloma not having achieved remission (CMS/HCC V24, CMS/HCC V28) KAPPA-LAMBDA QUANTITATIVE FREE LIGHT CHAINS Routine 12/11/2024 12:42 PM EDT Light chain disease, kappa type (CMS/HCC V24) Multiple myeloma not having achieved remission (CMS/HCC V24, CMS/HCC V28) LACTATE DEHYDROGENASE Routine 12/11/2024 12:42 PM EDT Light chain disease, kappa type (CMS/HCC V24) Multiple myeloma not having achieved remission (CMS/HCC V24, CMS/HCC V28) PROTEIN ELECTROPHORESIS, SERUM Routine 12/11/2024 12:42 PM EDT Light chain disease, kappa type (CMS/HCC V24) Multiple myeloma not having achieved remission (CMS/HCC V24, CMS/HCC V28) ID PROTEIN ELECTROPHORETIC FRACTIONATION & QUANTITATION SERUM Routine 11/13/2024 12:20 PM EDT Light chain disease, kappa type (CMS/HCC V24) Multiple myeloma not having achieved remission (CMS/HCC V24, CMS/HCC V28) PROTEIN, TOTAL Routine 11/13/2024 12:20 PM EDT Light chain disease, kappa type (CMS/HCC V24) Multiple myeloma not having achieved remission (CMS/HCC V24, CMS/HCC V28) IMMUNOGLOBULIN IGG Routine 11/13/2024 12 :20 PM EDT Multiple myeloma not having achieved remission (CMS/HCC V24, CMS/HCC V28) KAPPA-LAMBDA QUANTITATIVE FREE LIGHT CHAINS Routine 11/13/2024 12:20 PM EDT Light chain disease, kappa type (CMS/HCC V24) Multiple myeloma not having achieved remission (CMS/HCC V24, CMS/HCC V28) PROTEIN ELECTROPHORESIS, SERUM Routine 11/13/2024 12:20 PM EDT Light chain disease, kappa type (CMS/HCC V24) Multiple myeloma not having achieved remission (CMS/HCC V24, CMS/HCC V28) COMPREHENSIVE METABOLIC PANEL STAT 06/26/2024 11:18 AM EDT Multiple myeloma not having achieved remission (CMS/HCC V24, CMS/HCC V28) from Last 3 Months or Most Recently Relevant to Health Maintenance Results * Creatinine, urine, 24H (01/25/2025 11:25 AM EDT) Creatinine, Urine 62.0 mg/dL LAB CHEMISTRY METHOD 01/25/2025 12:18 PM EDT [facility] Creatinine, 24H Ur 1,116 800 - 2,000 mg/24 Hr LAB CHEMISTRY METHOD 01/25/2025 12:18 PM EDT [facility] Urine Volume 1,800 mL LAB CHEMISTRY METHOD 01/25/2025 12:18 PM EDT [facility] Collection Interval, Ur 24 hr LAB CHEMISTRY METHOD 01/25/2025 12:18 PM EDT [facility] Urine Urine specimen from urethra / Unknown Non-blood Collection / Unknown 01/25/2025 11:25 AM EDT 01/25/2025 11:37 AM EDT Subramava Vee MD LAB URINE ORDERABLE S Final Result [facility] [address] [place] [address], * (ABNORMAL) Reagan-lambda free light chains, quantitative (01/08/2025 12:00 PM EDT) Only the most recent of3 resultswithin the time period is included. Reagan Free Light Chain 11.44(H) 0.33 - 1.94 mg/dL 01/11/2025 12:37 PM EDT [facility] Lambda Free Light Chain 0.72 0.57 - 2.63 mg/dL 01/11/2025 12:37 PM EDT [facility] Reagan/Lambda FLC Ratio 15.89(H) 0.26 - 1.65 01/11/2025 12:37 PM EDT [facility] Comment: Test performed at [facility], [address], [place] [address] Minerva Acevedo MD, PhD - Football Coach Blood Venous blood specimen / Unknown Venipuncture / Unknown 01/08/2025 12:00 PM EDT 01/08/2025 12:11 PM EDT us Chika Vee MD LAB BLOOD ORDERABLE S Final Result [place] [address] * Protein, total (01/08/2025 12:00 PM EDT) Only the most recent of3 resultswithin the time period is included. Total Protein 6.5 6.0 - 8.0 g/dL LAB CHEMISTRY METHOD 01/08/2025 12:42 PM EDT [facility] Blood Venous blood specimen / Unknown Venipuncture / Unknown 01/08/2025 12:00 PM EDT 01/08/2025 12:11 PM EDT us Chika Vee MD LAB BLOOD ORDERABLE S Final Result Performing Organization Address [facility] Co de Phone Number [facility] [address] [place] [address], [place] [phone] * Immunoglobulin IgG (01/08/2025 12:00 PM EDT) Only the most recent of2 resultswithin the time period is included. Total IgG 726 549 - 1,584 mg/dL LAB CHEMISTRY METHOD 01/08/2025 12:46 PM EDT [facility] Blood Venous blood specimen / Unknown Venipuncture / Unknown 01/08/2025 12:00 PM EDT 01/08/2025 12:11 PM EDT us Chika Vee MD LAB BLOOD ORDERABLE S Final Result Performing Organization Address [facility]/ZIP Co de Phone Number [facility] [address] [place] [address], [place] [phone] * PATHOLOGIST REVIEW PROTEIN ELECTROPHORESIS (12/11/2024 12:42 PM EDT) Only the most recent of2 resultswithin the time period is included. Pathologist [facility] Pathologist Interpretation Lily Pedroza MD 12/15/2024 2:41 PM EDT [facility] Blood Venous blood specimen / Unknown Venipuncture / Unknown 12/11/2024 12:42 PM EDT 12/11/2024 1:43 PM EDT Subramava Vee MD LAB BLOOD ORDERABLE S Final Result [facility] [address] [place] [address], [place] [phone] * (ABNORMAL) Protein electrophoresis, serum (12/11/2024 12:42 PM EDT) Only the most recent of2 resultswithin the time period is included. Pathologist [facility] Total Protein 5.8(L) 6.0 - 8.0 g/dL LAB CHEMISTRY METHOD 5 2:41 PM EDT [facility] Albumin, Serum 3.3 2.9 - 4.1 g/dL LAB CHEMISTRY METHOD 5 2:41 PM EDT [facility] Alpha 1 Globulin (g/dL) 0.2 0.1 - 0.5 g/dL LAB CHEMISTRY METHOD 5 2:41 PM EDT [facility] Alpha 2 Globulin (g/dL) 0.9 0.7 - 1.5 g/dL LAB CHEMISTRY METHOD 5 2:41 PM EDT [facility] Beta (g/dL) 0.8 0.7 - 1.5 g/dL LAB CHEMISTRY METHOD 5 2:41 PM EDT [facility] Gamma Globulin (g/dL) 0.6(L) 0.7 - 1.9 g/dL LAB CHEMISTRY METHOD 5 2:41 PM EDT [facility] SPEP Interpretation No M-Mckinley seen. Hypogammaglobinemia May be associated with lymphoproliferative disorder, immunoglobulin loss, or protein losing enteropathy. LAB CHEMISTRY METHOD 2:41 PM EDT [facility] Blood Venous blood specimen / Unknown Venipuncture / Unknown 12/11/2024 12:42 PM EDT 12/11/2024 1:43 PM EDT Chika Vee MD LAB BLOOD ORDERABLE S Final Result Performing Organization Address City/[facility]/ZIP Co de Phone Number [facility] [address] [place] [address], [place] [phone] * Lactate dehydrogenase (12/11/2024 12:42 PM EDT) LDH 233 120 - 246 unit/L LAB CHEMISTRY METHOD 12/11/2024 2:36 PM EDT [facility] Comment:Hemolysis present Blood Venous blood specimen / Unknown Venipuncture / Unknown 12/11/2024 12:42 PM EDT 12/11/2024 1:43 PM EDT us Chika Vee MD LAB BLOOD ORDERABLE S Final Result Performing Organization Address City/[facility]/ZIP Co de Phone Number [facility] [address] [place] [address], [place] [phone] * (ABNORMAL) Comprehensive metabolic panel (06/26/2024 11:18 AM EDT) Sodium 140 133 - 145 mmol/L LAB CHEMISTRY METHOD 06/26/2024 12:52 PM EDT [facility] Potassium 5.0 3.5 - 5.5 mmol/L LAB CHEMISTRY METHOD 06/26/2024 12:52 PM EDT [facility] Comment:Hemolysis present Chloride 112(H) 96 - 110 mmol/L LAB CHEMISTRY METHOD 06/26/2024 12:52 PM [facility] CO2 23 21 - 32 mmol/L LAB CHEMISTRY METHOD 06/26/2024 12:52 PM [facility] Anion Gap 5 3 - 11 LAB CHEMISTRY METHOD 06/26/2024 12:52 PM [facility] Glucose 87 70 - 100 mg/dL LAB CHEMISTRY METHOD 06/26/2024 12:52 PM [facility] BUN 50(H) 5 - 25 mg/dL LAB CHEMISTRY METHOD 06/26/2024 12:52 PM [facility] Creatinine 2.41(H) 0.50 - 1.10 mg/dL LAB CHEMISTRY METHOD 06/26/2024 12:52 PM [facility] eGFR 20(L) >=60 mL/min/1. 73m2 LAB CHEMISTRY METHOD 06/26/2024 12:52 PM [facility] Comment:Calculation based on the Chronic Kidney Disease Epidemiology Collaboration (CKD-EPI) equation refit without adjustment for race. BUN/Creatinine Ratio 20.7 LAB CHEMISTRY METHOD 06/26/2024 12:52 PM [facility] Calcium 9.4 8.5 - 10.5 mg/dL LAB CHEMISTRY METHOD 06/26/2024 12:52 PM [facility] AST (SGOT) 29 10 - 42 unit/L LAB CHEMISTRY METHOD 06/26/2024 12:52 PM [facility] ALT (SGPT) 25 10 - 60 unit/L LAB CHEMISTRY METHOD 06/26/2024 12:52 PM [facility] Alkaline Phosphatase 102 42 - 121 unit/L LAB CHEMISTRY METHOD 06/26/2024 12:52 PM [facility] Total Protein 6.5 6.0 - 8.0 g/dL LAB CHEMISTRY METHOD 06/26/2024 12:52 PM [facility] Albumin 3.6 3.2 - 5.0 g/dL LAB CHEMISTRY METHOD 06/26/2024 12:52 PM EDT [facility] Total Bilirubin 0.3 0.0 - 1.4 mg/dL LAB CHEMISTRY METHOD 06/26/2024 12:52 PM EDT [facility] Blood Venous blood specimen / Unknown Venipuncture / Unknown 06/26/2024 11:18 AM EDT 06/26/2024 12:06 PM EDT us Chika Vee MD LAB BLOOD ORDERABLE S Final Result [facility] [address] [place] [address], from Last 3 Months or Most Recently Relevant to Health Maintenance Insurance MEDICARE [facility] Care Teams National Sales Consultant Relationship Specialty Start Date End Date Vikash Massey MD [address] [place] [address] PCP - General Internal Medicine 06/27/20
== END 2025-01-28 14:21 | disposition home or self-care (01) ==
LOC: HO.HKAS 13:31
PROVIDERS: PCP Internal Medicine; Visit Provider Internal Medicine Nephrology
DX: N18.4 Chronic kidney disease, stage 4 (severe) (principal); E87.20 Acidosis, unspecified; D63.8 Anemia in other chronic diseases classified elsewhere
CPT/HCPCS: 99214

== ENCOUNTER → 2025-01-28 13:30 | Outpatient (BNVA) | payer MEDICARE, OTHER, SELFPAY | PROVIDERS: PCP Internal Medicine; Visit Provider Internal Medicine Nephrology | DX: N18.4 Chronic kidney disease, stage 4 (severe) (principal); D63.8 Anemia in other chronic diseases classified elsewhere; E87.20 Acidosis, unspecified | CPT/HCPCS: 99212 ==